=== PATIENT | male | born 1960 | race Caucasian/White ===

== ENCOUNTER 2021-11-19 12:50 | Inpatient (IN) | payer OTHER ==
[2021-11-19 13:37] VITALS: BMI 21.4
[2021-11-19] MEDS ORDERED: NICOTINE 10 MG CARTRIDGE (INHALER) IH PRN (14:55)
[2021-11-19] MEDS ORDERED: P-EPHED 60MG/TRIPROLIDI 2.5MG TABLET PO PRN (14:55)
[2021-11-19] MEDS ORDERED: IBUPROFEN 400 MG TABLET (FP) PO PRN (14:55)
[2021-11-19] MEDS ORDERED: MAGNESIUM HYDROX 2400MG/30ML ORAL SUSPENSION 30 ML CUP PO PRN (14:55)
[2021-11-19] MEDS ORDERED: MAGNESIUM CITRATE 300 ML BOTTLE PO PRN (14:55)
[2021-11-19] MEDS ORDERED: guaiFENesin 200 MG/10 ML 10 ML UNIT-DOSE CUPS PO PRN (14:55)
[2021-11-19] MEDS ORDERED: LOPERAMIDE HCL 2 MG CAPSULE PO PRN (14:55)
[2021-11-19] MEDS ORDERED: MAG HYDROX/AL HYDROX/SIMETH 30 ML UNIT-DOSE CUP PO PRN (14:55)
[2021-11-19] MEDS ORDERED: cloNIDine HCL 0.1 MG TABLET PO ONE (23:29)
[2021-11-19] MEDS ORDERED: cloNIDine HCL 0.1 MG TABLET ONE (23:32)
[2021-11-19] MEDS ORDERED: hydrOXYzine PAMOATE 25 MG CAPSULE (FP) PO PRN (23:38)
[2021-11-19] MEDS ORDERED: NICOTINE POLACRILEX 2 MG GUM BUC PRN (23:39)
[2021-11-19] MEDS: levETIRAcetam 500 MG TABLET (FP) PO SCH (23:43)
[2021-11-20] MEDS ORDERED: methaDONE HCL 10 MG TABLET PO SCH (09:00)
[2021-11-20] MEDS: PRENATAL VITAMINS W/ FOLIC ACID TABLET (FP) PO SCH (10:21)
[2021-11-20] MEDS: NICOTINE 7 MG/24 HOURS TOPICAL PATCH TD SCH (10:22)
[2021-11-20] MEDS ORDERED: TUBERCULIN PPD 5 TU/0.1ML VIAL ID ONE (11:01)
[2021-11-20] MEDS: MELATONIN 5 MG TABLETS PO SCH ×2 (11:24→21:20)
[2021-11-20] MEDS: THIAMINE HCL 100 MG TABLET (FP) PO SCH ×2 (11:25→21:20)
[2021-11-20] MEDS: hydrOXYzine PAMOATE 25 MG CAPSULE (FP) PO SCH (11:26)
[2021-11-20 13:00] LABS: PH,URINE 5.5 (5.0-8.0); URINE APPEARANCE CLEAR; URINE BILIRUBIN NEGATIVE (NEGATIVE); URINE COLOR YELLOW; URINE GLUCOSE (UA) NEGATIVE (NEGATIVE); URINE KETONE NEGATIVE (NEGATIVE); URINE LEUK ESTERASE NEGATIVE (NEGATIVE); URINE NITRITE NEGATIVE (NEGATIVE); URINE PROTEIN NEGATIVE (NEGATIVE); URINE UROBILINOGEN 0.2 mg/dL (0.2-1.0)
[2021-11-20 13:05] LABS: HEMATOCRIT 34.8 % (35.4-49); HEMOGLOBIN 11.6 GM/dL (11.7-16.9); MCH 29.2 pg (25.7-33.7); MCHC 33.3 g/dl (32.0-35.9); MEAN CELL VOLUME 87.4 fl (80-96); MEAN PLT VOLUME 6.7 fl (7.5-11.1); PLATELET COUNT 185 10^3/uL (134-434); RBC 3.98 M/mm3 (4.00-5.60); RDW 14.7 % (11.9-15.9)
[2021-11-20 13:28] LABS: WHITE BLOOD COUNT 1.5 K/mm3 (4.0-10.0)
[2021-11-20 13:34] LABS: CALCIUM 8.9 mg/dL (8.5-10.1)
[2021-11-20 13:35] LABS: ALBUMIN 3.1 g/dl (3.4-5.0); BLOOD UREA NITROGEN 14.2 mg/dL (7-18)
[2021-11-20 13:38] LABS: CREATININE 0.8 mg/dL (0.55-1.3)
[2021-11-20 13:40] LABS: BILIRUBIN,TOTAL 0.3 mg/dL (0.2-1); TOT PROT 6.7 g/dl (6.4-8.2)
[2021-11-20 13:53] LABS: SYPHILIS W/ RPR CONF NON-REACTIVE (NONREACTIVE)
[2021-11-20] MEDS: ELVITEG/COB/EMTRI/TENOF (GENVOYA) TABLET (NF) PO SCH (15:09)
[2021-11-20] MEDS: levETIRAcetam 500 MG TABLET (FP) PO SCH (21:20)
[2021-11-21] MEDS ORDERED: methaDONE HCL 10 MG TABLET ONE (05:35)
[2021-11-21] MEDS ORDERED: methaDONE HCL 40 MG DISPERSABLE TABLET ONE (05:35)
[2021-11-21] MEDS: methaDONE 40 MG, methaDONE 30 MG PO SCH (05:45)
[2021-11-21] MEDS: PRENATAL VITAMINS W/ FOLIC ACID TABLET (FP) PO SCH (09:50)
[2021-11-21] MEDS: ELVITEG/COB/EMTRI/TENOF (GENVOYA) TABLET (NF) PO SCH (09:51)
[2021-11-21] MEDS: NICOTINE 7 MG/24 HOURS TOPICAL PATCH TD SCH (09:51)
[2021-11-21] MEDS: ROSUVASTATIN CA 10 MG TABLET PO SCH (23:19)
[2021-11-21] MEDS: MELATONIN 5 MG TABLETS PO SCH (23:19)
[2021-11-21] MEDS: levETIRAcetam 500 MG TABLET (FP) PO SCH (23:19)
[2021-11-21] MEDS: THIAMINE HCL 100 MG TABLET (FP) PO SCH (23:19)
[2021-11-21] MEDS: CARVEDILOL 6.25 MG TABLET (FP) PO SCH (23:19)
[2021-11-22] MEDS ORDERED: methaDONE HCL 40 MG DISPERSABLE TABLET ONE (03:21)
[2021-11-22] MEDS ORDERED: methaDONE HCL 10 MG TABLET ONE (03:21)
[2021-11-22] MEDS: methaDONE 40 MG, methaDONE 30 MG PO SCH (06:28)
[2021-11-22] MEDS: FUROSEMIDE 40 MG TABLET (FP) PO SCH ×2 (06:28→14:31)
[2021-11-22] MEDS ORDERED: CLARITHROMYCIN 250 MG TABLET PO ONE (09:00)
[2021-11-22] MEDS ORDERED: BUDESONIDE/FORMETEROL FUMARATE 160/4.5 mcg INHALER IH SCH (10:00)
[2021-11-22] MEDS ORDERED: LISINOPRIL 5 MG TABLET PO SCH (10:00)
[2021-11-22] MEDS: NICOTINE 7 MG/24 HOURS TOPICAL PATCH TD SCH (10:08)
[2021-11-22] MEDS: SULFAMETHOXAZOLE/TRIMETHOPRIM 800MG/160MG D.S. TABLET PO SCH (10:09)
[2021-11-22] MEDS: ELVITEG/COB/EMTRI/TENOF (GENVOYA) TABLET (NF) PO SCH (10:10)
[2021-11-22] MEDS: PRENATAL VITAMINS W/ FOLIC ACID TABLET (FP) PO SCH (10:10)
[2021-11-22] MEDS: ASPIRIN 81 MG CHEWABLE TABLETS PO SCH (10:10)
[2021-11-22] MEDS: CARVEDILOL 6.25 MG TABLET (FP) PO SCH ×2 (10:10→21:29)
[2021-11-22] MEDS: APIXABAN 2.5 MG TABLET PO SCH (10:11)
[2021-11-22] MEDS: NICOTINE 10 MG CARTRIDGE (INHALER) IH PRN (14:51)
[2021-11-22] MEDS ORDERED: LISINOPRIL 5 MG TABLET PO ONE (15:25)
[2021-11-22] MEDS: ACETAMINOPHEN 325 MG TABLET (FP) PO PRN (18:17)
[2021-11-22] MEDS: THIAMINE HCL 100 MG TABLET (FP) PO SCH (21:29)
[2021-11-22] MEDS: levETIRAcetam 500 MG TABLET (FP) PO SCH (21:29)
[2021-11-22] MEDS: ROSUVASTATIN CA 10 MG TABLET PO SCH (21:29)
[2021-11-22] MEDS: MELATONIN 5 MG TABLETS PO SCH (21:30)
[2021-11-23] MEDS: ACETAMINOPHEN 325 MG TABLET (FP) PO PRN (01:17)
[2021-11-23] MEDS ORDERED: methaDONE HCL 10 MG TABLET ONE (05:20)
[2021-11-23] MEDS ORDERED: methaDONE HCL 40 MG DISPERSABLE TABLET ONE (05:20)
[2021-11-23] MEDS: FUROSEMIDE 40 MG TABLET (FP) PO SCH ×2 (06:34→14:15)
[2021-11-23] MEDS: methaDONE 40 MG, methaDONE 30 MG PO SCH (06:34)
[2021-11-23] MEDS ORDERED: LISINOPRIL 10 MG TABLET PO SCH (10:00)
[2021-11-23] MEDS: CARVEDILOL 6.25 MG TABLET (FP) PO SCH ×2 (10:41→21:30)
[2021-11-23] MEDS: PRENATAL VITAMINS W/ FOLIC ACID TABLET (FP) PO SCH (10:41)
[2021-11-23] MEDS: ASPIRIN 81 MG CHEWABLE TABLETS PO SCH (10:42)
[2021-11-23] MEDS: NICOTINE 7 MG/24 HOURS TOPICAL PATCH TD SCH (10:44)
[2021-11-23] MEDS: ELVITEG/COB/EMTRI/TENOF (GENVOYA) TABLET (NF) PO SCH (10:45)
[2021-11-23] MEDS: APIXABAN 2.5 MG TABLET PO SCH ×2 (10:45→21:30)
[2021-11-23] MEDS ORDERED: LISINOPRIL 5 MG TABLET PO ONE (14:15)
[2021-11-23] MEDS: ROSUVASTATIN CA 10 MG TABLET PO SCH (21:30)
[2021-11-23] MEDS: THIAMINE HCL 100 MG TABLET (FP) PO SCH (21:30)
[2021-11-23] MEDS: MELATONIN 5 MG TABLETS PO SCH (21:30)
[2021-11-23] MEDS: levETIRAcetam 500 MG TABLET (FP) PO SCH (21:30)
[2021-11-24] MEDS ORDERED: methaDONE HCL 10 MG TABLET ONE (04:04)
[2021-11-24] MEDS ORDERED: methaDONE HCL 40 MG DISPERSABLE TABLET ONE (04:05)
[2021-11-24] MEDS: methaDONE 40 MG, methaDONE 30 MG PO SCH (06:52)
[2021-11-24] MEDS: FUROSEMIDE 40 MG TABLET (FP) PO SCH ×2 (06:52→14:21)
[2021-11-24] MEDS: NICOTINE 10 MG CARTRIDGE (INHALER) IH PRN (06:53)
[2021-11-24] MEDS: ASPIRIN 81 MG CHEWABLE TABLETS PO SCH (10:06)
[2021-11-24] MEDS: LISINOPRIL 5 MG TABLET PO SCH (10:06)
[2021-11-24] MEDS: CARVEDILOL 6.25 MG TABLET (FP) PO SCH ×2 (10:07→21:22)
[2021-11-24] MEDS: APIXABAN 2.5 MG TABLET PO SCH ×2 (10:07→21:22)
[2021-11-24] MEDS: PRENATAL VITAMINS W/ FOLIC ACID TABLET (FP) PO SCH (10:07)
[2021-11-24] MEDS: ELVITEG/COB/EMTRI/TENOF (GENVOYA) TABLET (NF) PO SCH (10:07)
[2021-11-24] MEDS: NICOTINE 7 MG/24 HOURS TOPICAL PATCH TD SCH (10:07)
[2021-11-24] MEDS: SULFAMETHOXAZOLE/TRIMETHOPRIM 800MG/160MG D.S. TABLET PO SCH (10:07)
[2021-11-24] MEDS: PATIENT'S OWN MEDICATION (NON-FORMULARY) (Umeclidinium Bromide [Incruse Ellipta] 62.5 MCG PO SCH (10:08)
[2021-11-24] MEDS: MELATONIN 5 MG TABLETS PO SCH (21:22)
[2021-11-24] MEDS: ROSUVASTATIN CA 10 MG TABLET PO SCH (21:22)
[2021-11-24] MEDS: THIAMINE HCL 100 MG TABLET (FP) PO SCH (21:22)
[2021-11-25] MEDS ORDERED: methaDONE HCL 10 MG TABLET ONE (04:54)
[2021-11-25] MEDS ORDERED: methaDONE HCL 40 MG DISPERSABLE TABLET ONE (04:54)
[2021-11-25] MEDS: FUROSEMIDE 40 MG TABLET (FP) PO SCH ×2 (06:31→14:04)
[2021-11-25] MEDS: methaDONE 40 MG, methaDONE 30 MG PO SCH (06:32)
[2021-11-25] MEDS: ASPIRIN 81 MG CHEWABLE TABLETS PO SCH (10:48)
[2021-11-25] MEDS: LISINOPRIL 5 MG TABLET PO SCH (10:48)
[2021-11-25] MEDS: CARVEDILOL 6.25 MG TABLET (FP) PO SCH ×2 (10:49→21:40)
[2021-11-25] MEDS: PRENATAL VITAMINS W/ FOLIC ACID TABLET (FP) PO SCH (10:49)
[2021-11-25] MEDS: NICOTINE 7 MG/24 HOURS TOPICAL PATCH TD SCH (10:49)
[2021-11-25] MEDS: PATIENT'S OWN MEDICATION (NON-FORMULARY) (Umeclidinium Bromide [Incruse Ellipta] 62.5 MCG PO SCH (10:50)
[2021-11-25] MEDS: APIXABAN 2.5 MG TABLET PO SCH ×2 (10:50→21:40)
[2021-11-25] MEDS: ELVITEG/COB/EMTRI/TENOF (GENVOYA) TABLET (NF) PO SCH (10:50)
[2021-11-25] MEDS: THIAMINE HCL 100 MG TABLET (FP) PO SCH (21:40)
[2021-11-25] MEDS: ROSUVASTATIN CA 10 MG TABLET PO SCH (21:40)
[2021-11-25] MEDS: MELATONIN 5 MG TABLETS PO SCH (21:40)
[2021-11-26] MEDS ORDERED: methaDONE HCL 40 MG DISPERSABLE TABLET ONE (05:44)
[2021-11-26] MEDS ORDERED: methaDONE HCL 10 MG TABLET ONE (05:44)
[2021-11-26] MEDS: methaDONE 40 MG, methaDONE 30 MG PO SCH (06:26)
[2021-11-26] MEDS: FUROSEMIDE 40 MG TABLET (FP) PO SCH ×2 (06:26→14:38)
[2021-11-26] MEDS: CARVEDILOL 6.25 MG TABLET (FP) PO SCH ×2 (10:23→21:40)
[2021-11-26] MEDS: ASPIRIN 81 MG CHEWABLE TABLETS PO SCH (10:23)
[2021-11-26] MEDS: LISINOPRIL 5 MG TABLET PO SCH (10:23)
[2021-11-26] MEDS: NICOTINE 7 MG/24 HOURS TOPICAL PATCH TD SCH (10:23)
[2021-11-26] MEDS: PRENATAL VITAMINS W/ FOLIC ACID TABLET (FP) PO SCH (10:23)
[2021-11-26] MEDS: SULFAMETHOXAZOLE/TRIMETHOPRIM 800MG/160MG D.S. TABLET PO SCH (10:23)
[2021-11-26] MEDS: NICOTINE 10 MG CARTRIDGE (INHALER) IH PRN (10:24)
[2021-11-26] MEDS: APIXABAN 2.5 MG TABLET PO SCH ×2 (10:27→21:40)
[2021-11-26] MEDS: ELVITEG/COB/EMTRI/TENOF (GENVOYA) TABLET (NF) PO SCH (10:27)
[2021-11-26] MEDS: PATIENT'S OWN MEDICATION (NON-FORMULARY) (Umeclidinium Bromide [Incruse Ellipta] 62.5 MCG PO SCH (10:28)
[2021-11-26] MEDS: ROSUVASTATIN CA 10 MG TABLET PO SCH (21:40)
[2021-11-26] MEDS: THIAMINE HCL 100 MG TABLET (FP) PO SCH (21:40)
[2021-11-26] MEDS: MELATONIN 5 MG TABLETS PO SCH (21:40)
[2021-11-27] MEDS ORDERED: methaDONE HCL 40 MG DISPERSABLE TABLET ONE (03:26)
[2021-11-27] MEDS ORDERED: methaDONE HCL 10 MG TABLET ONE (03:26)
[2021-11-27] MEDS: methaDONE 40 MG, methaDONE 30 MG PO SCH (06:28)
[2021-11-27] MEDS: FUROSEMIDE 40 MG TABLET (FP) PO SCH ×2 (06:29→14:33)
[2021-11-27 10:27] LABS: HEMOGLOBIN 13.3 GM/dL (11.7-16.9); MCH 29.7 pg (25.7-33.7); MCHC 33.3 g/dl (32.0-35.9); MEAN CELL VOLUME 89.2 fl (80-96); MEAN PLT VOLUME 7.3 fl (7.5-11.1); PLATELET COUNT 224 10^3/uL (134-434); RBC 4.49 M/mm3 (4.00-5.60); RDW 14.4 % (11.9-15.9); WHITE BLOOD COUNT 3.8 K/mm3 (4.0-10.0)
[2021-11-27] MEDS: LISINOPRIL 5 MG TABLET PO SCH (10:51)
[2021-11-27] MEDS: ASPIRIN 81 MG CHEWABLE TABLETS PO SCH (10:51)
[2021-11-27] MEDS: PRENATAL VITAMINS W/ FOLIC ACID TABLET (FP) PO SCH (10:51)
[2021-11-27] MEDS: CARVEDILOL 6.25 MG TABLET (FP) PO SCH ×2 (10:51→21:42)
[2021-11-27] MEDS: ELVITEG/COB/EMTRI/TENOF (GENVOYA) TABLET (NF) PO SCH (10:53)
[2021-11-27] MEDS: APIXABAN 2.5 MG TABLET PO SCH ×2 (10:53→21:43)
[2021-11-27] MEDS: NICOTINE 7 MG/24 HOURS TOPICAL PATCH TD SCH (10:53)
[2021-11-27] MEDS: PATIENT'S OWN MEDICATION (NON-FORMULARY) (Umeclidinium Bromide [Incruse Ellipta] 62.5 MCG PO SCH (10:53)
[2021-11-27] MEDS: MELATONIN 5 MG TABLETS PO SCH (21:42)
[2021-11-27] MEDS: THIAMINE HCL 100 MG TABLET (FP) PO SCH (21:42)
[2021-11-27] MEDS: ROSUVASTATIN CA 10 MG TABLET PO SCH (21:42)
[2021-11-28] MEDS ORDERED: methaDONE HCL 10 MG TABLET ONE (03:09)
[2021-11-28] MEDS ORDERED: methaDONE HCL 40 MG DISPERSABLE TABLET ONE (03:10)
[2021-11-28] MEDS ORDERED: methaDONE HCL 10 MG TABLET PO SCH (06:00)
[2021-11-28] MEDS: methaDONE 40 MG, methaDONE 30 MG PO SCH (06:30)
[2021-11-28] MEDS: FUROSEMIDE 40 MG TABLET (FP) PO SCH ×2 (06:30→14:05)
[2021-11-28] MEDS: PRENATAL VITAMINS W/ FOLIC ACID TABLET (FP) PO SCH (09:41)
[2021-11-28] MEDS: LISINOPRIL 5 MG TABLET PO SCH (09:41)
[2021-11-28] MEDS: CARVEDILOL 6.25 MG TABLET (FP) PO SCH ×2 (09:41→21:46)
[2021-11-28] MEDS: ASPIRIN 81 MG CHEWABLE TABLETS PO SCH (09:42)
[2021-11-28] MEDS: APIXABAN 2.5 MG TABLET PO SCH ×2 (09:42→21:47)
[2021-11-28] MEDS: ELVITEG/COB/EMTRI/TENOF (GENVOYA) TABLET (NF) PO SCH (09:42)
[2021-11-28] MEDS: NICOTINE 7 MG/24 HOURS TOPICAL PATCH TD SCH (09:43)
[2021-11-28] MEDS: NICOTINE 10 MG CARTRIDGE (INHALER) IH PRN (09:44)
[2021-11-28] MEDS: PATIENT'S OWN MEDICATION (NON-FORMULARY) (Umeclidinium Bromide [Incruse Ellipta] 62.5 MCG PO SCH (09:45)
[2021-11-28] MEDS: ROSUVASTATIN CA 10 MG TABLET PO SCH (21:45)
[2021-11-28] MEDS: THIAMINE HCL 100 MG TABLET (FP) PO SCH (21:46)
[2021-11-28] MEDS: MELATONIN 5 MG TABLETS PO SCH (21:46)
[2021-11-29] MEDS ORDERED: methaDONE HCL 40 MG DISPERSABLE TABLET ONE (03:07)
[2021-11-29] MEDS ORDERED: methaDONE HCL 10 MG TABLET ONE (03:07)
[2021-11-29] MEDS: FUROSEMIDE 40 MG TABLET (FP) PO SCH ×2 (06:21→15:08)
[2021-11-29] MEDS: methaDONE 40 MG, methaDONE 30 MG PO SCH (06:22)
[2021-11-29] MEDS: SULFAMETHOXAZOLE/TRIMETHOPRIM 800MG/160MG D.S. TABLET PO SCH (10:46)
[2021-11-29] MEDS: ASPIRIN 81 MG CHEWABLE TABLETS PO SCH (10:46)
[2021-11-29] MEDS: CARVEDILOL 6.25 MG TABLET (FP) PO SCH ×2 (10:46→21:28)
[2021-11-29] MEDS: PATIENT'S OWN MEDICATION (NON-FORMULARY) (Umeclidinium Bromide [Incruse Ellipta] 62.5 MCG PO SCH (10:46)
[2021-11-29] MEDS: PRENATAL VITAMINS W/ FOLIC ACID TABLET (FP) PO SCH (10:46)
[2021-11-29] MEDS: LISINOPRIL 5 MG TABLET PO SCH (10:46)
[2021-11-29] MEDS: APIXABAN 2.5 MG TABLET PO SCH ×2 (10:47→21:28)
[2021-11-29] MEDS: NICOTINE 7 MG/24 HOURS TOPICAL PATCH TD SCH (10:47)
[2021-11-29] MEDS: ELVITEG/COB/EMTRI/TENOF (GENVOYA) TABLET (NF) PO SCH (10:47)
[2021-11-29] MEDS: ROSUVASTATIN CA 10 MG TABLET PO SCH (21:28)
[2021-11-29] MEDS: THIAMINE HCL 100 MG TABLET (FP) PO SCH (21:28)
[2021-11-29] MEDS: MELATONIN 5 MG TABLETS PO SCH (21:28)
[2021-11-30] MEDS ORDERED: methaDONE HCL 40 MG DISPERSABLE TABLET ONE (03:00)
[2021-11-30] MEDS ORDERED: methaDONE HCL 10 MG TABLET ONE (03:00)
[2021-11-30] MEDS: methaDONE 40 MG, methaDONE 30 MG PO SCH (06:27)
[2021-11-30] MEDS: FUROSEMIDE 40 MG TABLET (FP) PO SCH ×2 (06:28→15:40)
[2021-11-30] MEDS: ASPIRIN 81 MG CHEWABLE TABLETS PO SCH (10:52)
[2021-11-30] MEDS: LISINOPRIL 5 MG TABLET PO SCH (10:52)
[2021-11-30] MEDS: APIXABAN 2.5 MG TABLET PO SCH ×2 (10:53→21:06)
[2021-11-30] MEDS: ELVITEG/COB/EMTRI/TENOF (GENVOYA) TABLET (NF) PO SCH (10:53)
[2021-11-30] MEDS: PRENATAL VITAMINS W/ FOLIC ACID TABLET (FP) PO SCH (10:53)
[2021-11-30] MEDS: NICOTINE 7 MG/24 HOURS TOPICAL PATCH TD SCH (10:53)
[2021-11-30] MEDS: PATIENT'S OWN MEDICATION (NON-FORMULARY) (Umeclidinium Bromide [Incruse Ellipta] 62.5 MCG PO SCH (10:54)
[2021-11-30] MEDS: CARVEDILOL 6.25 MG TABLET (FP) PO SCH ×2 (10:54→21:06)
[2021-11-30] MEDS: THIAMINE HCL 100 MG TABLET (FP) PO SCH (21:06)
[2021-11-30] MEDS: MELATONIN 5 MG TABLETS PO SCH (21:06)
[2021-11-30] MEDS: ROSUVASTATIN CA 10 MG TABLET PO SCH (21:06)
[2021-12-01] MEDS ORDERED: methaDONE HCL 40 MG DISPERSABLE TABLET ONE (02:28)
[2021-12-01] MEDS ORDERED: methaDONE HCL 10 MG TABLET ONE (02:28)
[2021-12-01] MEDS: methaDONE 40 MG, methaDONE 30 MG PO SCH (06:37)
[2021-12-01] MEDS: FUROSEMIDE 40 MG TABLET (FP) PO SCH ×2 (06:37→15:02)
[2021-12-01] MEDS: NICOTINE 7 MG/24 HOURS TOPICAL PATCH TD SCH (10:34)
[2021-12-01] MEDS: CARVEDILOL 6.25 MG TABLET (FP) PO SCH ×2 (10:34→21:11)
[2021-12-01] MEDS: ASPIRIN 81 MG CHEWABLE TABLETS PO SCH (10:34)
[2021-12-01] MEDS: LISINOPRIL 5 MG TABLET PO SCH (10:34)
[2021-12-01] MEDS: SULFAMETHOXAZOLE/TRIMETHOPRIM 800MG/160MG D.S. TABLET PO SCH (10:34)
[2021-12-01] MEDS: PRENATAL VITAMINS W/ FOLIC ACID TABLET (FP) PO SCH (10:34)
[2021-12-01] MEDS: APIXABAN 2.5 MG TABLET PO SCH ×2 (10:35→21:11)
[2021-12-01] MEDS: ELVITEG/COB/EMTRI/TENOF (GENVOYA) TABLET (NF) PO SCH (10:35)
[2021-12-01] MEDS: PATIENT'S OWN MEDICATION (NON-FORMULARY) (Umeclidinium Bromide [Incruse Ellipta] 62.5 MCG PO SCH (10:36)
[2021-12-01] MEDS: MELATONIN 5 MG TABLETS PO SCH (21:11)
[2021-12-01] MEDS: THIAMINE HCL 100 MG TABLET (FP) PO SCH (21:11)
[2021-12-01] MEDS: ROSUVASTATIN CA 10 MG TABLET PO SCH (21:11)
[2021-12-02] MEDS ORDERED: methaDONE HCL 40 MG DISPERSABLE TABLET ONE (06:41)
[2021-12-02] MEDS ORDERED: methaDONE HCL 10 MG TABLET ONE (06:41)
[2021-12-02] MEDS: methaDONE 40 MG, methaDONE 30 MG PO SCH (06:52)
[2021-12-02] MEDS: NICOTINE 10 MG CARTRIDGE (INHALER) IH PRN (06:53)
[2021-12-02] MEDS: FUROSEMIDE 40 MG TABLET (FP) PO SCH ×2 (06:53→13:19)
[2021-12-02] MEDS: ASPIRIN 81 MG CHEWABLE TABLETS PO SCH (10:02)
[2021-12-02] MEDS: CARVEDILOL 6.25 MG TABLET (FP) PO SCH ×2 (10:02→21:13)
[2021-12-02] MEDS: LISINOPRIL 5 MG TABLET PO SCH (10:02)
[2021-12-02] MEDS: PRENATAL VITAMINS W/ FOLIC ACID TABLET (FP) PO SCH (10:02)
[2021-12-02] MEDS: ELVITEG/COB/EMTRI/TENOF (GENVOYA) TABLET (NF) PO SCH (10:02)
[2021-12-02] MEDS: APIXABAN 2.5 MG TABLET PO SCH ×2 (10:02→21:13)
[2021-12-02] MEDS: PATIENT'S OWN MEDICATION (NON-FORMULARY) (Umeclidinium Bromide [Incruse Ellipta] 62.5 MCG PO SCH (10:03)
[2021-12-02] MEDS: NICOTINE 7 MG/24 HOURS TOPICAL PATCH TD SCH (10:04)
[2021-12-02] MEDS: MELATONIN 5 MG TABLETS PO SCH (21:13)
[2021-12-02] MEDS: THIAMINE HCL 100 MG TABLET (FP) PO SCH (21:13)
[2021-12-02] MEDS: ROSUVASTATIN CA 10 MG TABLET PO SCH (21:13)
[2021-12-03] MEDS: NICOTINE 10 MG CARTRIDGE (INHALER) IH PRN (06:31)
[2021-12-03] MEDS ORDERED: methaDONE HCL 10 MG TABLET ONE (06:31)
[2021-12-03] MEDS: methaDONE 40 MG, methaDONE 30 MG PO SCH (06:32)
[2021-12-03] MEDS: FUROSEMIDE 40 MG TABLET (FP) PO SCH ×2 (06:32→13:53)
[2021-12-03] MEDS ORDERED: methaDONE HCL 40 MG DISPERSABLE TABLET ONE (06:32)
[2021-12-03] MEDS: LISINOPRIL 5 MG TABLET PO SCH (09:44)
[2021-12-03] MEDS: SULFAMETHOXAZOLE/TRIMETHOPRIM 800MG/160MG D.S. TABLET PO SCH (09:44)
[2021-12-03] MEDS: NICOTINE 7 MG/24 HOURS TOPICAL PATCH TD SCH (09:44)
[2021-12-03] MEDS: ASPIRIN 81 MG CHEWABLE TABLETS PO SCH (09:44)
[2021-12-03] MEDS: PRENATAL VITAMINS W/ FOLIC ACID TABLET (FP) PO SCH (09:44)
[2021-12-03] MEDS: APIXABAN 2.5 MG TABLET PO SCH ×2 (09:45→21:38)
[2021-12-03] MEDS: ELVITEG/COB/EMTRI/TENOF (GENVOYA) TABLET (NF) PO SCH (09:45)
[2021-12-03] MEDS: CARVEDILOL 6.25 MG TABLET (FP) PO SCH ×2 (09:45→21:38)
[2021-12-03] MEDS: TIOTROPIUM BROMIDE 2.5 MCG (SPIRIVA) RESPIMAT INHALER IH SCH (10:28)
[2021-12-03] MEDS: THIAMINE HCL 100 MG TABLET (FP) PO SCH (21:37)
[2021-12-03] MEDS: MELATONIN 5 MG TABLETS PO SCH (21:37)
[2021-12-03] MEDS: ROSUVASTATIN CA 10 MG TABLET PO SCH (21:38)
[2021-12-04] MEDS ORDERED: methaDONE HCL 40 MG DISPERSABLE TABLET ONE (03:12)
[2021-12-04] MEDS ORDERED: methaDONE HCL 10 MG TABLET ONE (03:12)
[2021-12-04] MEDS: methaDONE 40 MG, methaDONE 30 MG PO SCH (05:47)
[2021-12-04] MEDS: FUROSEMIDE 40 MG TABLET (FP) PO SCH ×2 (05:48→14:01)
[2021-12-04] MEDS: NICOTINE 7 MG/24 HOURS TOPICAL PATCH TD SCH (10:16)
[2021-12-04] MEDS: PRENATAL VITAMINS W/ FOLIC ACID TABLET (FP) PO SCH (10:17)
[2021-12-04] MEDS: ASPIRIN 81 MG CHEWABLE TABLETS PO SCH (10:17)
[2021-12-04] MEDS: LISINOPRIL 5 MG TABLET PO SCH (10:17)
[2021-12-04] MEDS: TIOTROPIUM BROMIDE 2.5 MCG (SPIRIVA) RESPIMAT INHALER IH SCH (10:18)
[2021-12-04] MEDS: ELVITEG/COB/EMTRI/TENOF (GENVOYA) TABLET (NF) PO SCH (10:18)
[2021-12-04] MEDS: CARVEDILOL 6.25 MG TABLET (FP) PO SCH ×2 (10:18→21:23)
[2021-12-04] MEDS: APIXABAN 2.5 MG TABLET PO SCH ×2 (10:18→21:23)
[2021-12-04] MEDS: ROSUVASTATIN CA 10 MG TABLET PO SCH (21:23)
[2021-12-04] MEDS: THIAMINE HCL 100 MG TABLET (FP) PO SCH (21:23)
[2021-12-04] MEDS: MELATONIN 5 MG TABLETS PO SCH (21:23)
[2021-12-04] MEDS: ACETAMINOPHEN 325 MG TABLET (FP) PO PRN (21:24)
[2021-12-05] MEDS ORDERED: methaDONE HCL 10 MG TABLET ONE (04:03)
[2021-12-05] MEDS ORDERED: methaDONE HCL 40 MG DISPERSABLE TABLET ONE (04:04)
[2021-12-05] MEDS: methaDONE 40 MG, methaDONE 30 MG PO SCH (06:17)
[2021-12-05] MEDS: FUROSEMIDE 40 MG TABLET (FP) PO SCH ×2 (06:17→14:17)
[2021-12-05] MEDS: NICOTINE 10 MG CARTRIDGE (INHALER) IH PRN (06:44)
[2021-12-05] MEDS: LISINOPRIL 5 MG TABLET PO SCH (10:13)
[2021-12-05] MEDS: PRENATAL VITAMINS W/ FOLIC ACID TABLET (FP) PO SCH (10:14)
[2021-12-05] MEDS: CARVEDILOL 6.25 MG TABLET (FP) PO SCH ×2 (10:14→21:07)
[2021-12-05] MEDS: ASPIRIN 81 MG CHEWABLE TABLETS PO SCH (10:14)
[2021-12-05] MEDS: NICOTINE 7 MG/24 HOURS TOPICAL PATCH TD SCH (10:14)
[2021-12-05] MEDS: APIXABAN 2.5 MG TABLET PO SCH ×2 (10:15→21:08)
[2021-12-05] MEDS: ELVITEG/COB/EMTRI/TENOF (GENVOYA) TABLET (NF) PO SCH (10:15)
[2021-12-05] MEDS: TIOTROPIUM BROMIDE 2.5 MCG (SPIRIVA) RESPIMAT INHALER IH SCH (10:15)
[2021-12-05] MEDS: MELATONIN 5 MG TABLETS PO SCH (21:07)
[2021-12-05] MEDS: THIAMINE HCL 100 MG TABLET (FP) PO SCH (21:07)
[2021-12-05] MEDS: ROSUVASTATIN CA 10 MG TABLET PO SCH (21:07)
[2021-12-06] MEDS ORDERED: methaDONE HCL 10 MG TABLET ONE (03:56)
[2021-12-06] MEDS ORDERED: methaDONE HCL 40 MG DISPERSABLE TABLET ONE (03:56)
[2021-12-06] MEDS: FUROSEMIDE 40 MG TABLET (FP) PO SCH ×2 (06:31→14:33)
[2021-12-06] MEDS: methaDONE 40 MG, methaDONE 30 MG PO SCH (06:31)
[2021-12-06] MEDS: NICOTINE 10 MG CARTRIDGE (INHALER) IH PRN ×2 (06:33→18:33)
[2021-12-06] MEDS: CARVEDILOL 6.25 MG TABLET (FP) PO SCH ×2 (10:16→21:20)
[2021-12-06] MEDS: ELVITEG/COB/EMTRI/TENOF (GENVOYA) TABLET (NF) PO SCH (10:17)
[2021-12-06] MEDS: SULFAMETHOXAZOLE/TRIMETHOPRIM 800MG/160MG D.S. TABLET PO SCH (10:17)
[2021-12-06] MEDS: TIOTROPIUM BROMIDE 2.5 MCG (SPIRIVA) RESPIMAT INHALER IH SCH (10:17)
[2021-12-06] MEDS: NICOTINE 7 MG/24 HOURS TOPICAL PATCH TD SCH (10:17)
[2021-12-06] MEDS: APIXABAN 2.5 MG TABLET PO SCH ×2 (10:17→21:20)
[2021-12-06] MEDS: PRENATAL VITAMINS W/ FOLIC ACID TABLET (FP) PO SCH (10:17)
[2021-12-06] MEDS: LISINOPRIL 5 MG TABLET PO SCH (10:17)
[2021-12-06] MEDS: ASPIRIN 81 MG CHEWABLE TABLETS PO SCH (10:17)
[2021-12-06] MEDS: ACETAMINOPHEN 325 MG TABLET (FP) PO PRN (14:34)
[2021-12-06] MEDS: MELATONIN 5 MG TABLETS PO SCH (21:20)
[2021-12-06] MEDS: ROSUVASTATIN CA 10 MG TABLET PO SCH (21:20)
[2021-12-06] MEDS: THIAMINE HCL 100 MG TABLET (FP) PO SCH (21:20)
[2021-12-07] MEDS ORDERED: methaDONE HCL 10 MG TABLET ONE (05:58)
[2021-12-07] MEDS: FUROSEMIDE 40 MG TABLET (FP) PO SCH (05:59)
[2021-12-07] MEDS ORDERED: methaDONE HCL 40 MG DISPERSABLE TABLET ONE (05:59)
[2021-12-07] MEDS: methaDONE 40 MG, methaDONE 30 MG PO SCH (06:00)
[2021-12-07] MEDS: NICOTINE 10 MG CARTRIDGE (INHALER) IH PRN (06:51)
[2021-12-07 07:14] VITALS: BP 165/85; PULSE 60; TEMP 97.7
[2021-12-07] MEDS: LISINOPRIL 5 MG TABLET PO SCH (10:07)
[2021-12-07] MEDS: ASPIRIN 81 MG CHEWABLE TABLETS PO SCH (10:07)
[2021-12-07] MEDS: PRENATAL VITAMINS W/ FOLIC ACID TABLET (FP) PO SCH (10:07)
[2021-12-07] MEDS: CARVEDILOL 6.25 MG TABLET (FP) PO SCH (10:07)
[2021-12-07] MEDS: APIXABAN 2.5 MG TABLET PO SCH (10:08)
[2021-12-07] MEDS: ELVITEG/COB/EMTRI/TENOF (GENVOYA) TABLET (NF) PO SCH (10:08)
[2021-12-07] MEDS: NICOTINE 7 MG/24 HOURS TOPICAL PATCH TD SCH (10:09)
[2021-12-07] MEDS: TIOTROPIUM BROMIDE 2.5 MCG (SPIRIVA) RESPIMAT INHALER IH SCH (10:09)
== END 2021-12-07 10:25 | disposition home or self-care (01) | DRG 772 ==
LOC: YASAS 12:50 → Y3W 23:31
PROVIDERS: ADMIT Allergy & Immunology; ATTEND Psychiatry & Neurology Pain Medicine
PROC: HZ42ZZZ Group Counseling for Substance Abuse Treatment, Cognitive-Behavioral (ICD-10-PCS; principal; 2021-11-19)
DX: F10.20 Alcohol dependence, uncomplicated (principal); F11.20 Opioid dependence, uncomplicated; F14.20 Cocaine dependence, uncomplicated; F17.210 Nicotine dependence, cigarettes, uncomplicated; I10 Essential (primary) hypertension; Z21 Asymptomatic human immunodeficiency virus [HIV] infection status; R00.1 Bradycardia, unspecified; I45.81 Long QT syndrome; I45.10 Unspecified right bundle-branch block; Z28.310 Unvaccinated for COVID-19
CPT/HCPCS: 36415; 80053; 81003; 84132; 85027; 86780; 86803; 87522; 93005; 93010; C9803-CS; J0735; U0003; U0005

== ENCOUNTER 2021-12-20 12:20 | Inpatient (IN) | payer OTHER ==
[2021-12-20 14:37] VITALS: BMI 21.2
[2021-12-20] MEDS ORDERED: IBUPROFEN 400 MG TABLET (FP) PO PRN (14:55)
[2021-12-20] MEDS ORDERED: guaiFENesin 200 MG/10 ML 10 ML UNIT-DOSE CUPS PO PRN (14:55)
[2021-12-20] MEDS ORDERED: MAG HYDROX/AL HYDROX/SIMETH 30 ML UNIT-DOSE CUP PO PRN (14:55)
[2021-12-20] MEDS ORDERED: MAGNESIUM CITRATE 300 ML BOTTLE PO PRN (14:55)
[2021-12-20] MEDS ORDERED: P-EPHED 60MG/TRIPROLIDI 2.5MG TABLET PO PRN (14:55)
[2021-12-20] MEDS ORDERED: MAGNESIUM HYDROX 2400MG/30ML ORAL SUSPENSION 30 ML CUP PO PRN (14:55)
[2021-12-20] MEDS ORDERED: LOPERAMIDE HCL 2 MG CAPSULE PO PRN (14:55)
[2021-12-20] MEDS: hydrOXYzine PAMOATE 25 MG CAPSULE (FP) PO SCH ×2 (21:41→22:43)
[2021-12-20] MEDS: THIAMINE HCL 100 MG TABLET (FP) PO SCH (22:41)
[2021-12-20] MEDS: MELATONIN 5 MG TABLETS PO SCH (22:41)
[2021-12-21] MEDS: hydrOXYzine PAMOATE 25 MG CAPSULE (FP) PO SCH ×2 (06:10→10:31)
[2021-12-21] MEDS ORDERED: methaDONE HCL 40 MG DISPERSABLE TABLET PO SCH (07:45)
[2021-12-21] MEDS ORDERED: methaDONE HCL 10 MG TABLET ONE (08:19)
[2021-12-21] MEDS ORDERED: methaDONE HCL 40 MG DISPERSABLE TABLET ONE (08:19)
[2021-12-21] MEDS: methaDONE 40 MG, methaDONE 30 MG PO SCH (08:20)
[2021-12-21] MEDS ORDERED: NICOTINE 21 MG/24 HOURS TOPICAL PATCH TD SCH (10:00)
[2021-12-21] MEDS ORDERED: BUDESONIDE/FORMETEROL FUMARATE 160/4.5 mcg INHALER IH SCH (10:15)
[2021-12-21] MEDS: PRENATAL VITAMINS W/ FOLIC ACID TABLET (FP) PO SCH (10:31)
[2021-12-21 11:40] LABS: HEMATOCRIT 35.6 % (35.4-49); HEMOGLOBIN 11.9 GM/dL (11.7-16.9); MCH 30.3 pg (25.7-33.7); MCHC 33.4 g/dl (32.0-35.9); MEAN CELL VOLUME 90.5 fl (80-96); MEAN PLT VOLUME 6.8 fl (7.5-11.1); PLATELET COUNT 155 10^3/uL (134-434); RBC 3.93 M/mm3 (4.00-5.60); RDW 14.1 % (11.9-15.9)
[2021-12-21 11:47] LABS: WHITE BLOOD COUNT 1.9 K/mm3 (4.0-10.0)
[2021-12-21 11:57] LABS: SYPHILIS W/ RPR CONF NON-REACTIVE (NONREACTIVE)
[2021-12-21 12:06] LABS: CALCIUM 8.9 mg/dL (8.5-10.1)
[2021-12-21 12:07] LABS: ALBUMIN 3.3 g/dl (3.4-5.0)
[2021-12-21 12:11] LABS: CREATININE 0.9 mg/dL (0.55-1.3)
[2021-12-21 12:12] LABS: BILIRUBIN,TOTAL 0.6 mg/dL (0.2-1); TOT PROT 6.9 g/dl (6.4-8.2)
[2021-12-21] MEDS: ASPIRIN 81 MG CHEWABLE TABLETS PO SCH (12:13)
[2021-12-21] MEDS: CARVEDILOL 6.25 MG TABLET (FP) PO SCH ×2 (12:14→21:02)
[2021-12-21] MEDS: ELVITEG/COB/EMTRI/TENOF (GENVOYA) TABLET (NF) PO SCH (12:15)
[2021-12-21] MEDS: APIXABAN 2.5 MG TABLET PO SCH (12:15)
[2021-12-21] MEDS: LISINOPRIL 5 MG TABLET PO SCH (12:16)
[2021-12-21] MEDS: TIOTROPIUM BROMIDE 2.5 MCG (SPIRIVA) RESPIMAT INHALER IH SCH (12:17)
[2021-12-21] MEDS ORDERED: hydrOXYzine PAMOATE 25 MG CAPSULE (FP) PO PRN (13:03)
[2021-12-21 15:30] LABS: HIV INTERPRETATION PRESUMPTIVE POSITIVE (NEGATIVE)
[2021-12-21] MEDS: MELATONIN 5 MG TABLETS PO SCH (21:02)
[2021-12-21] MEDS: ROSUVASTATIN CA 10 MG TABLET PO SCH (21:02)
[2021-12-21] MEDS: THIAMINE HCL 100 MG TABLET (FP) PO SCH (21:03)
[2021-12-22] MEDS ORDERED: methaDONE HCL 10 MG TABLET ONE (03:45)
[2021-12-22] MEDS ORDERED: methaDONE HCL 40 MG DISPERSABLE TABLET ONE (03:45)
[2021-12-22] MEDS: methaDONE 40 MG, methaDONE 30 MG PO SCH (06:44)
[2021-12-22] MEDS: ASPIRIN 81 MG CHEWABLE TABLETS PO SCH (10:15)
[2021-12-22] MEDS: ELVITEG/COB/EMTRI/TENOF (GENVOYA) TABLET (NF) PO SCH (10:15)
[2021-12-22] MEDS: CARVEDILOL 6.25 MG TABLET (FP) PO SCH ×2 (10:15→21:18)
[2021-12-22] MEDS: LISINOPRIL 5 MG TABLET PO SCH (10:19)
[2021-12-22] MEDS: TIOTROPIUM BROMIDE 2.5 MCG (SPIRIVA) RESPIMAT INHALER IH SCH (10:19)
[2021-12-22] MEDS: NICOTINE 7 MG/24 HOURS TOPICAL PATCH TD SCH (10:20)
[2021-12-22] MEDS: PRENATAL VITAMINS W/ FOLIC ACID TABLET (FP) PO SCH (10:20)
[2021-12-22] MEDS: BUDESONIDE/FORMETEROL FUMARATE 160/4.5 mcg INHALER IH SCH (10:22)
[2021-12-22] MEDS: APIXABAN 2.5 MG TABLET PO SCH (14:22)
[2021-12-22] MEDS: MELATONIN 5 MG TABLETS PO SCH (21:18)
[2021-12-22] MEDS: ROSUVASTATIN CA 10 MG TABLET PO SCH (21:18)
[2021-12-22] MEDS: THIAMINE HCL 100 MG TABLET (FP) PO SCH (21:18)
[2021-12-23] MEDS ORDERED: methaDONE HCL 40 MG DISPERSABLE TABLET ONE (03:12)
[2021-12-23] MEDS ORDERED: methaDONE HCL 10 MG TABLET ONE (03:12)
[2021-12-23] MEDS: methaDONE 40 MG, methaDONE 30 MG PO SCH (06:35)
[2021-12-23] MEDS: ELVITEG/COB/EMTRI/TENOF (GENVOYA) TABLET (NF) PO SCH (07:16)
[2021-12-23] MEDS: PRENATAL VITAMINS W/ FOLIC ACID TABLET (FP) PO SCH (10:00)
[2021-12-23] MEDS: BUDESONIDE/FORMETEROL FUMARATE 160/4.5 mcg INHALER IH SCH (10:00)
[2021-12-23] MEDS: LISINOPRIL 5 MG TABLET PO SCH (10:01)
[2021-12-23] MEDS: TIOTROPIUM BROMIDE 2.5 MCG (SPIRIVA) RESPIMAT INHALER IH SCH (10:01)
[2021-12-23] MEDS: ASPIRIN 81 MG CHEWABLE TABLETS PO SCH (10:01)
[2021-12-23] MEDS: NICOTINE 7 MG/24 HOURS TOPICAL PATCH TD SCH (10:03)
[2021-12-23] MEDS: APIXABAN 2.5 MG TABLET PO SCH (11:35)
[2021-12-23] MEDS: CARVEDILOL 6.25 MG TABLET (FP) PO SCH ×2 (11:35→21:09)
[2021-12-23] MEDS: ACETAMINOPHEN 325 MG TABLET (FP) PO PRN (11:37)
[2021-12-23 13:45] LABS: BASO % 0.7 % (0-2.0); EOS % 2.3 % (0-4.5); HEMATOCRIT 35.6 % (35.4-49); HEMOGLOBIN 11.7 GM/dL (11.7-16.9); LYMPH % 25.3 % (8-40); MCHC 32.9 g/dl (32.0-35.9); MEAN CELL VOLUME 90.9 fl (80-96); MEAN PLT VOLUME 6.9 fl (7.5-11.1); MONO % 8.3 % (3.8-10.2); NEUT % 63.4 % (42.8-82.8); PLATELET COUNT 168 10^3/uL (134-434); RBC 3.91 M/mm3 (4.00-5.60); RDW 14.1 % (11.9-15.9)
[2021-12-23] MEDS: MELATONIN 5 MG TABLETS PO SCH (21:09)
[2021-12-23] MEDS: ROSUVASTATIN CA 10 MG TABLET PO SCH (21:09)
[2021-12-23] MEDS: THIAMINE HCL 100 MG TABLET (FP) PO SCH (21:09)
[2021-12-24] MEDS ORDERED: methaDONE HCL 40 MG DISPERSABLE TABLET ONE (03:10)
[2021-12-24] MEDS ORDERED: methaDONE HCL 10 MG TABLET ONE (03:10)
[2021-12-24] MEDS: methaDONE 40 MG, methaDONE 30 MG PO SCH (06:24)
[2021-12-24] MEDS: ELVITEG/COB/EMTRI/TENOF (GENVOYA) TABLET (NF) PO SCH (07:03)
[2021-12-24] MEDS: ASPIRIN 81 MG CHEWABLE TABLETS PO SCH (10:21)
[2021-12-24] MEDS: PRENATAL VITAMINS W/ FOLIC ACID TABLET (FP) PO SCH (10:21)
[2021-12-24] MEDS: CARVEDILOL 6.25 MG TABLET (FP) PO SCH ×2 (10:21→21:19)
[2021-12-24] MEDS: TIOTROPIUM BROMIDE 2.5 MCG (SPIRIVA) RESPIMAT INHALER IH SCH (10:22)
[2021-12-24] MEDS: NICOTINE 7 MG/24 HOURS TOPICAL PATCH TD SCH (10:22)
[2021-12-24] MEDS: APIXABAN 2.5 MG TABLET PO SCH (10:22)
[2021-12-24] MEDS: BUDESONIDE/FORMETEROL FUMARATE 160/4.5 mcg INHALER IH SCH (10:23)
[2021-12-24] MEDS: LISINOPRIL 5 MG TABLET PO SCH (10:23)
[2021-12-24] MEDS: NICOTINE 10 MG CARTRIDGE (INHALER) IH PRN (10:24)
[2021-12-24] MEDS: ACETAMINOPHEN 325 MG TABLET (FP) PO PRN (13:54)
[2021-12-24] MEDS: MELATONIN 5 MG TABLETS PO SCH (21:19)
[2021-12-24] MEDS: THIAMINE HCL 100 MG TABLET (FP) PO SCH (21:20)
[2021-12-24] MEDS: ROSUVASTATIN CA 10 MG TABLET PO SCH (21:20)
[2021-12-25] MEDS ORDERED: methaDONE HCL 40 MG DISPERSABLE TABLET ONE (03:10)
[2021-12-25] MEDS ORDERED: methaDONE HCL 10 MG TABLET ONE (03:10)
[2021-12-25] MEDS: methaDONE 40 MG, methaDONE 30 MG PO SCH (06:16)
[2021-12-25] MEDS: ELVITEG/COB/EMTRI/TENOF (GENVOYA) TABLET (NF) PO SCH (07:03)
[2021-12-25] MEDS: NICOTINE 10 MG CARTRIDGE (INHALER) IH PRN (07:12)
[2021-12-25] MEDS ORDERED: cloNIDine HCL 0.1 MG TABLET PO ONE (07:15)
[2021-12-25] MEDS: ASPIRIN 81 MG CHEWABLE TABLETS PO SCH (09:46)
[2021-12-25] MEDS: NICOTINE 7 MG/24 HOURS TOPICAL PATCH TD SCH (09:47)
[2021-12-25] MEDS: APIXABAN 2.5 MG TABLET PO SCH (09:47)
[2021-12-25] MEDS: CARVEDILOL 6.25 MG TABLET (FP) PO SCH ×2 (09:47→21:37)
[2021-12-25] MEDS: LISINOPRIL 5 MG TABLET PO SCH (09:48)
[2021-12-25] MEDS: BUDESONIDE/FORMETEROL FUMARATE 160/4.5 mcg INHALER IH SCH (09:48)
[2021-12-25] MEDS: PRENATAL VITAMINS W/ FOLIC ACID TABLET (FP) PO SCH (09:48)
[2021-12-25] MEDS: TIOTROPIUM BROMIDE 2.5 MCG (SPIRIVA) RESPIMAT INHALER IH SCH (09:48)
[2021-12-25] MEDS: MELATONIN 5 MG TABLETS PO SCH (21:37)
[2021-12-25] MEDS: ROSUVASTATIN CA 10 MG TABLET PO SCH (21:37)
[2021-12-25] MEDS: THIAMINE HCL 100 MG TABLET (FP) PO SCH (21:37)
[2021-12-26] MEDS ORDERED: methaDONE HCL 10 MG TABLET ONE (03:06)
[2021-12-26] MEDS ORDERED: methaDONE HCL 40 MG DISPERSABLE TABLET ONE (03:06)
[2021-12-26] MEDS: NICOTINE 10 MG CARTRIDGE (INHALER) IH PRN (06:25)
[2021-12-26] MEDS: methaDONE 40 MG, methaDONE 30 MG PO SCH (06:25)
[2021-12-26] MEDS: ELVITEG/COB/EMTRI/TENOF (GENVOYA) TABLET (NF) PO SCH (07:05)
[2021-12-26] MEDS: NICOTINE 7 MG/24 HOURS TOPICAL PATCH TD SCH (10:48)
[2021-12-26] MEDS: APIXABAN 2.5 MG TABLET PO SCH (10:48)
[2021-12-26] MEDS: CARVEDILOL 6.25 MG TABLET (FP) PO SCH ×2 (10:48→21:26)
[2021-12-26] MEDS: PRENATAL VITAMINS W/ FOLIC ACID TABLET (FP) PO SCH (10:49)
[2021-12-26] MEDS: LISINOPRIL 5 MG TABLET PO SCH (10:49)
[2021-12-26] MEDS: BUDESONIDE/FORMETEROL FUMARATE 160/4.5 mcg INHALER IH SCH (10:49)
[2021-12-26] MEDS: TIOTROPIUM BROMIDE 2.5 MCG (SPIRIVA) RESPIMAT INHALER IH SCH (10:49)
[2021-12-26] MEDS: ASPIRIN 81 MG CHEWABLE TABLETS PO SCH (10:50)
[2021-12-26] MEDS: THIAMINE HCL 100 MG TABLET (FP) PO SCH (21:25)
[2021-12-26] MEDS: MELATONIN 5 MG TABLETS PO SCH (21:25)
[2021-12-26] MEDS: ROSUVASTATIN CA 10 MG TABLET PO SCH (21:25)
[2021-12-27] MEDS ORDERED: methaDONE HCL 10 MG TABLET ONE (03:08)
[2021-12-27] MEDS ORDERED: methaDONE HCL 40 MG DISPERSABLE TABLET ONE (03:08)
[2021-12-27] MEDS: methaDONE 40 MG, methaDONE 30 MG PO SCH (06:33)
[2021-12-27] MEDS: ELVITEG/COB/EMTRI/TENOF (GENVOYA) TABLET (NF) PO SCH (07:21)
[2021-12-27] MEDS: BUDESONIDE/FORMETEROL FUMARATE 160/4.5 mcg INHALER IH SCH (10:43)
[2021-12-27] MEDS: TIOTROPIUM BROMIDE 2.5 MCG (SPIRIVA) RESPIMAT INHALER IH SCH (10:43)
[2021-12-27] MEDS: ASPIRIN 81 MG CHEWABLE TABLETS PO SCH (10:51)
[2021-12-27] MEDS: CARVEDILOL 6.25 MG TABLET (FP) PO SCH ×2 (10:51→21:23)
[2021-12-27] MEDS: APIXABAN 2.5 MG TABLET PO SCH (10:51)
[2021-12-27] MEDS: NICOTINE 7 MG/24 HOURS TOPICAL PATCH TD SCH (10:53)
[2021-12-27] MEDS: PRENATAL VITAMINS W/ FOLIC ACID TABLET (FP) PO SCH (10:53)
[2021-12-27] MEDS: NICOTINE 10 MG CARTRIDGE (INHALER) IH PRN (10:54)
[2021-12-27] MEDS: LISINOPRIL 5 MG TABLET PO SCH (13:46)
[2021-12-27] MEDS: ROSUVASTATIN CA 10 MG TABLET PO SCH (21:24)
[2021-12-27] MEDS: MELATONIN 5 MG TABLETS PO SCH (21:24)
[2021-12-27] MEDS: THIAMINE HCL 100 MG TABLET (FP) PO SCH (21:24)
[2021-12-28] MEDS ORDERED: methaDONE HCL 40 MG DISPERSABLE TABLET ONE (03:51)
[2021-12-28] MEDS ORDERED: methaDONE HCL 10 MG TABLET ONE (03:51)
[2021-12-28] MEDS: methaDONE 40 MG, methaDONE 30 MG PO SCH (05:50)
[2021-12-28] MEDS: NICOTINE 10 MG CARTRIDGE (INHALER) IH PRN ×2 (06:20→21:46)
[2021-12-28] MEDS: ELVITEG/COB/EMTRI/TENOF (GENVOYA) TABLET (NF) PO SCH (07:00)
[2021-12-28] MEDS ORDERED: hydrOXYzine PAMOATE 25 MG CAPSULE (FP) PO PRN (08:59)
[2021-12-28] MEDS: PRENATAL VITAMINS W/ FOLIC ACID TABLET (FP) PO SCH (09:59)
[2021-12-28] MEDS: LISINOPRIL 5 MG TABLET PO SCH (09:59)
[2021-12-28] MEDS: CARVEDILOL 6.25 MG TABLET (FP) PO SCH ×2 (09:59→21:44)
[2021-12-28] MEDS: ASPIRIN 81 MG CHEWABLE TABLETS PO SCH (10:00)
[2021-12-28] MEDS: ACETAMINOPHEN 325 MG TABLET (FP) PO PRN ×2 (10:00→21:45)
[2021-12-28] MEDS: NICOTINE 7 MG/24 HOURS TOPICAL PATCH TD SCH (11:02)
[2021-12-28] MEDS: BUDESONIDE/FORMETEROL FUMARATE 160/4.5 mcg INHALER IH SCH (11:02)
[2021-12-28] MEDS: TIOTROPIUM BROMIDE 2.5 MCG (SPIRIVA) RESPIMAT INHALER IH SCH (11:02)
[2021-12-28] MEDS: APIXABAN 2.5 MG TABLET PO SCH (11:04)
[2021-12-28] MEDS: THIAMINE HCL 100 MG TABLET (FP) PO SCH (21:44)
[2021-12-28] MEDS: ROSUVASTATIN CA 10 MG TABLET PO SCH (21:44)
[2021-12-28] MEDS: MELATONIN 5 MG TABLETS PO SCH (21:44)
[2021-12-29] MEDS ORDERED: methaDONE HCL 40 MG DISPERSABLE TABLET ONE (05:51)
[2021-12-29] MEDS ORDERED: methaDONE HCL 10 MG TABLET ONE (05:51)
[2021-12-29] MEDS ORDERED: methaDONE HCL 10 MG TABLET PO SCH (06:00)
[2021-12-29] MEDS: methaDONE 40 MG, methaDONE 30 MG PO SCH (06:31)
[2021-12-29] MEDS: FUROSEMIDE 20 MG TABLET (FP) PO SCH ×2 (06:31→14:22)
[2021-12-29] MEDS: NICOTINE 10 MG CARTRIDGE (INHALER) IH PRN ×2 (06:34→14:22)
[2021-12-29] MEDS: ELVITEG/COB/EMTRI/TENOF (GENVOYA) TABLET (NF) PO SCH (07:03)
[2021-12-29] MEDS: LISINOPRIL 5 MG TABLET PO SCH (09:55)
[2021-12-29] MEDS: ASPIRIN 81 MG CHEWABLE TABLETS PO SCH (09:55)
[2021-12-29] MEDS: BUDESONIDE/FORMETEROL FUMARATE 160/4.5 mcg INHALER IH SCH (09:55)
[2021-12-29] MEDS: PRENATAL VITAMINS W/ FOLIC ACID TABLET (FP) PO SCH (09:55)
[2021-12-29] MEDS: TIOTROPIUM BROMIDE 2.5 MCG (SPIRIVA) RESPIMAT INHALER IH SCH (09:55)
[2021-12-29] MEDS: NICOTINE 7 MG/24 HOURS TOPICAL PATCH TD SCH (09:55)
[2021-12-29] MEDS: CARVEDILOL 6.25 MG TABLET (FP) PO SCH ×2 (09:55→21:42)
[2021-12-29] MEDS: APIXABAN 2.5 MG TABLET PO SCH (09:56)
[2021-12-29] MEDS: ACETAMINOPHEN 325 MG TABLET (FP) PO PRN (21:42)
[2021-12-29] MEDS: MELATONIN 5 MG TABLETS PO SCH (21:42)
[2021-12-29] MEDS: ROSUVASTATIN CA 10 MG TABLET PO SCH (21:42)
[2021-12-29] MEDS: THIAMINE HCL 100 MG TABLET (FP) PO SCH (21:42)
[2021-12-30] MEDS ORDERED: methaDONE HCL 10 MG TABLET ONE (03:13)
[2021-12-30] MEDS ORDERED: methaDONE HCL 40 MG DISPERSABLE TABLET ONE (03:13)
[2021-12-30] MEDS: FUROSEMIDE 20 MG TABLET (FP) PO SCH ×2 (06:06→14:20)
[2021-12-30] MEDS: methaDONE 40 MG, methaDONE 30 MG PO SCH (06:06)
[2021-12-30] MEDS: NICOTINE 10 MG CARTRIDGE (INHALER) IH PRN ×2 (06:10→10:57)
[2021-12-30] MEDS: ELVITEG/COB/EMTRI/TENOF (GENVOYA) TABLET (NF) PO SCH (07:07)
[2021-12-30] MEDS: ASPIRIN 81 MG CHEWABLE TABLETS PO SCH (10:53)
[2021-12-30] MEDS: PRENATAL VITAMINS W/ FOLIC ACID TABLET (FP) PO SCH (10:53)
[2021-12-30] MEDS: LISINOPRIL 5 MG TABLET PO SCH (10:53)
[2021-12-30] MEDS: TIOTROPIUM BROMIDE 2.5 MCG (SPIRIVA) RESPIMAT INHALER IH SCH (10:54)
[2021-12-30] MEDS: NICOTINE 7 MG/24 HOURS TOPICAL PATCH TD SCH (10:54)
[2021-12-30] MEDS: CARVEDILOL 6.25 MG TABLET (FP) PO SCH ×2 (10:55→21:05)
[2021-12-30] MEDS: BUDESONIDE/FORMETEROL FUMARATE 160/4.5 mcg INHALER IH SCH (10:55)
[2021-12-30] MEDS: APIXABAN 2.5 MG TABLET PO SCH (11:00)
[2021-12-30] MEDS: MELATONIN 5 MG TABLETS PO SCH (21:05)
[2021-12-30] MEDS: THIAMINE HCL 100 MG TABLET (FP) PO SCH (21:05)
[2021-12-30] MEDS: ROSUVASTATIN CA 10 MG TABLET PO SCH (21:05)
[2021-12-31] MEDS ORDERED: methaDONE HCL 10 MG TABLET ONE (03:41)
[2021-12-31] MEDS ORDERED: methaDONE HCL 40 MG DISPERSABLE TABLET ONE (03:41)
[2021-12-31] MEDS: FUROSEMIDE 20 MG TABLET (FP) PO SCH ×2 (06:12→14:23)
[2021-12-31] MEDS: methaDONE 40 MG, methaDONE 30 MG PO SCH (06:12)
[2021-12-31] MEDS: ELVITEG/COB/EMTRI/TENOF (GENVOYA) TABLET (NF) PO SCH (07:01)
[2021-12-31] MEDS: PRENATAL VITAMINS W/ FOLIC ACID TABLET (FP) PO SCH (09:55)
[2021-12-31] MEDS: BUDESONIDE/FORMETEROL FUMARATE 160/4.5 mcg INHALER IH SCH (09:56)
[2021-12-31] MEDS: LISINOPRIL 5 MG TABLET PO SCH (09:56)
[2021-12-31] MEDS: CARVEDILOL 6.25 MG TABLET (FP) PO SCH ×2 (09:56→21:07)
[2021-12-31] MEDS: ASPIRIN 81 MG CHEWABLE TABLETS PO SCH (09:56)
[2021-12-31] MEDS: TIOTROPIUM BROMIDE 2.5 MCG (SPIRIVA) RESPIMAT INHALER IH SCH (09:56)
[2021-12-31] MEDS: APIXABAN 2.5 MG TABLET PO SCH (09:56)
[2021-12-31] MEDS: NICOTINE 7 MG/24 HOURS TOPICAL PATCH TD SCH (10:45)
[2021-12-31] MEDS: ROSUVASTATIN CA 10 MG TABLET PO SCH (21:07)
[2021-12-31] MEDS: MELATONIN 5 MG TABLETS PO SCH (21:07)
[2021-12-31] MEDS: THIAMINE HCL 100 MG TABLET (FP) PO SCH (21:08)
[2022-01-01] MEDS ORDERED: methaDONE HCL 40 MG DISPERSABLE TABLET ONE (03:42)
[2022-01-01] MEDS ORDERED: methaDONE HCL 10 MG TABLET ONE (03:42)
[2022-01-01] MEDS: FUROSEMIDE 20 MG TABLET (FP) PO SCH ×2 (06:27→13:57)
[2022-01-01] MEDS: methaDONE 40 MG, methaDONE 30 MG PO SCH (06:27)
[2022-01-01] MEDS: NICOTINE 10 MG CARTRIDGE (INHALER) IH PRN (06:30)
[2022-01-01] MEDS: ELVITEG/COB/EMTRI/TENOF (GENVOYA) TABLET (NF) PO SCH (07:19)
[2022-01-01] MEDS: NICOTINE 7 MG/24 HOURS TOPICAL PATCH TD SCH (09:55)
[2022-01-01] MEDS: PRENATAL VITAMINS W/ FOLIC ACID TABLET (FP) PO SCH (09:55)
[2022-01-01] MEDS: ASPIRIN 81 MG CHEWABLE TABLETS PO SCH (09:55)
[2022-01-01] MEDS: CARVEDILOL 6.25 MG TABLET (FP) PO SCH ×2 (09:55→21:07)
[2022-01-01] MEDS: LISINOPRIL 5 MG TABLET PO SCH (09:55)
[2022-01-01] MEDS: APIXABAN 2.5 MG TABLET PO SCH (09:57)
[2022-01-01] MEDS: TIOTROPIUM BROMIDE 2.5 MCG (SPIRIVA) RESPIMAT INHALER IH SCH (09:58)
[2022-01-01] MEDS: BUDESONIDE/FORMETEROL FUMARATE 160/4.5 mcg INHALER IH SCH (09:58)
[2022-01-01] MEDS: MELATONIN 5 MG TABLETS PO SCH (21:06)
[2022-01-01] MEDS: ROSUVASTATIN CA 10 MG TABLET PO SCH (21:06)
[2022-01-01] MEDS: THIAMINE HCL 100 MG TABLET (FP) PO SCH (21:07)
[2022-01-01] MEDS: ACETAMINOPHEN 325 MG TABLET (FP) PO PRN (21:08)
[2022-01-02] MEDS ORDERED: methaDONE HCL 40 MG DISPERSABLE TABLET ONE (03:09)
[2022-01-02] MEDS ORDERED: methaDONE HCL 10 MG TABLET ONE (03:09)
[2022-01-02] MEDS: methaDONE 40 MG, methaDONE 30 MG PO SCH (06:14)
[2022-01-02] MEDS: FUROSEMIDE 20 MG TABLET (FP) PO SCH ×2 (06:15→14:58)
[2022-01-02] MEDS: NICOTINE 10 MG CARTRIDGE (INHALER) IH PRN ×2 (06:20→14:58)
[2022-01-02] MEDS: ELVITEG/COB/EMTRI/TENOF (GENVOYA) TABLET (NF) PO SCH (07:14)
[2022-01-02] MEDS: LISINOPRIL 5 MG TABLET PO SCH (07:43)
[2022-01-02] MEDS: PRENATAL VITAMINS W/ FOLIC ACID TABLET (FP) PO SCH (10:39)
[2022-01-02] MEDS: APIXABAN 2.5 MG TABLET PO SCH (10:39)
[2022-01-02] MEDS: NICOTINE 7 MG/24 HOURS TOPICAL PATCH TD SCH (10:39)
[2022-01-02] MEDS: CARVEDILOL 6.25 MG TABLET (FP) PO SCH ×2 (10:39→21:44)
[2022-01-02] MEDS: ASPIRIN 81 MG CHEWABLE TABLETS PO SCH (10:39)
[2022-01-02] MEDS: BUDESONIDE/FORMETEROL FUMARATE 160/4.5 mcg INHALER IH SCH (10:41)
[2022-01-02] MEDS: TIOTROPIUM BROMIDE 2.5 MCG (SPIRIVA) RESPIMAT INHALER IH SCH (10:41)
[2022-01-02] MEDS: MELATONIN 5 MG TABLETS PO SCH (21:44)
[2022-01-02] MEDS: ROSUVASTATIN CA 10 MG TABLET PO SCH (21:44)
[2022-01-02] MEDS: THIAMINE HCL 100 MG TABLET (FP) PO SCH (21:44)
[2022-01-03] MEDS ORDERED: methaDONE HCL 10 MG TABLET ONE (03:15)
[2022-01-03] MEDS ORDERED: methaDONE HCL 40 MG DISPERSABLE TABLET ONE (03:15)
[2022-01-03] MEDS: methaDONE 40 MG, methaDONE 30 MG PO SCH (06:29)
[2022-01-03] MEDS: FUROSEMIDE 20 MG TABLET (FP) PO SCH (06:30)
[2022-01-03] MEDS: LISINOPRIL 5 MG TABLET PO SCH (06:30)
[2022-01-03] MEDS: NICOTINE 10 MG CARTRIDGE (INHALER) IH PRN (06:32)
[2022-01-03 06:44] VITALS: BP 160/97; PULSE 53; RESP 18; TEMP 97.5
[2022-01-03] MEDS: ELVITEG/COB/EMTRI/TENOF (GENVOYA) TABLET (NF) PO SCH (07:52)
== END 2022-01-03 10:00 | disposition home or self-care (01) | DRG 772 ==
LOC: YASAS 12:20 → Y3W 20:44
PROVIDERS: ADMIT Allergy & Immunology; ATTEND Psychiatry & Neurology Pain Medicine
PROC: HZ42ZZZ Group Counseling for Substance Abuse Treatment, Cognitive-Behavioral (ICD-10-PCS; principal; 2021-12-20)
DX: F11.20 Opioid dependence, uncomplicated (principal); F10.20 Alcohol dependence, uncomplicated; F14.20 Cocaine dependence, uncomplicated; F12.20 Cannabis dependence, uncomplicated; F17.210 Nicotine dependence, cigarettes, uncomplicated; Z21 Asymptomatic human immunodeficiency virus [HIV] infection status; I10 Essential (primary) hypertension; B18.2 Chronic viral hepatitis C; R00.1 Bradycardia, unspecified; Z86.718 Personal history of other venous thrombosis and embolism; Z79.01 Long term (current) use of anticoagulants; Z28.310 Unvaccinated for COVID-19
CPT/HCPCS: 36415; 80053; 85025; 85027; 86780; 86803; 87389; 87522; C9803-CS; J0735; U0003; U0005

== ENCOUNTER 2022-12-23 11:59 | Inpatient (IN) | payer OTHER ==
[2022-12-23 12:44] VITALS: BMI 21.4
[2022-12-23] MEDS ORDERED: AMMONIUM LACTATE 12% LOTION 225 GM BOTTLE TP PRN (13:23)
[2022-12-23] MEDS ORDERED: IBUPROFEN 400 MG TABLET (FP) PO PRN (13:23)
[2022-12-23] MEDS ORDERED: MAGNESIUM HYDROX 2400MG/30ML ORAL SUSPENSION 30 ML CUP PO PRN (13:23)
[2022-12-23] MEDS ORDERED: BENZONATATE 200 MG CAPSULE PO PRN (13:23)
[2022-12-23] MEDS ORDERED: MAG HYDROX/AL HYDROX/SIMETH 30 ML UNIT-DOSE CUP PO PRN (13:23)
[2022-12-23] MEDS ORDERED: BENZOCAINE/MENTHOL (CHLORASEPTIC ) LOZENGE MM PRN (13:23)
[2022-12-23] MEDS ORDERED: POLYETHYLENE GLYCOL (HEALTHYLAX) 3350 17 GM PACKET PO PRN (13:23)
[2022-12-23] MEDS ORDERED: NALOXONE HCL 0.4 MG/ML VIAL IM PRN (13:23)
[2022-12-23] MEDS ORDERED: COLLOIDAL OATMEAL 1 BAR EACH TP PRN (13:23)
[2022-12-23] MEDS ORDERED: guaiFENesin 600 MG TABLET.ER (FP) PO PRN (13:23)
[2022-12-23] MEDS ORDERED: NALOXONE HCL (KLOXXADO) 8 MG SPRAY NS PRN (13:23)
[2022-12-23] MEDS ORDERED: LOPERAMIDE HCL 2 MG CAPSULE PO PRN (13:23)
[2022-12-23] MEDS ORDERED: P-EPHED 60MG/TRIPROLIDI 2.5MG TABLET PO PRN (13:23)
[2022-12-23] MEDS ORDERED: cloNIDine HCL 0.1 MG TABLET PO ONE ×2 (13:45→15:46)
[2022-12-23] MEDS: ELVITEG/COB/EMTRI/TENOF (GENVOYA) TABLET PO SCH (15:14)
[2022-12-23] MEDS ORDERED: cloNIDine HCL 0.1 MG TABLET PO PRN ×2 (15:48→18:00)
[2022-12-23] MEDS: MELATONIN 5 MG TABLETS PO SCH (21:24)
[2022-12-23] MEDS: THIAMINE HCL 100 MG TABLET (FP) PO SCH (21:24)
[2022-12-23] MEDS: cloNIDine HCL 0.1 MG TABLET PO PRN (21:25)
[2022-12-24] MEDS: methaDONE HCL 10 MG TABLET PO SCH (07:47)
[2022-12-24] MEDS: ELVITEG/COB/EMTRI/TENOF (GENVOYA) TABLET PO SCH (07:48)
[2022-12-24] MEDS: LIDOCAINE 5% TOPICAL PATCH TP SCH (10:03)
[2022-12-24] MEDS: PRENATAL VITAMINS W/ FOLIC ACID TABLET (FP) PO SCH (10:04)
[2022-12-24] MEDS: LISINOPRIL 5 MG TABLET PO SCH (10:04)
[2022-12-24] MEDS: NICOTINE 21 MG/24 HOURS TOPICAL PATCH TD SCH (11:42)
[2022-12-24 18:33] LABS: PH,URINE 5.5 (5.0-8.0); URINE APPEARANCE CLEAR; URINE BILIRUBIN NEGATIVE (NEGATIVE); URINE COLOR YELLOW; URINE GLUCOSE (UA) NEGATIVE (NEGATIVE); URINE KETONE NEGATIVE (NEGATIVE); URINE LEUK ESTERASE NEGATIVE (NEGATIVE); URINE NITRITE NEGATIVE (NEGATIVE); URINE PROTEIN NEGATIVE (NEGATIVE)
[2022-12-24] MEDS: cloNIDine HCL 0.1 MG TABLET PO PRN (21:15)
[2022-12-24] MEDS: LIDOCAINE PATCH REMOVAL MC SCH (21:15)
[2022-12-24] MEDS: MELATONIN 5 MG TABLETS PO SCH (21:15)
[2022-12-24] MEDS: THIAMINE HCL 100 MG TABLET (FP) PO SCH (21:15)
[2022-12-25] MEDS: methaDONE HCL 10 MG TABLET PO SCH (06:25)
[2022-12-25] MEDS: ELVITEG/COB/EMTRI/TENOF (GENVOYA) TABLET PO SCH (08:02)
[2022-12-25] MEDS: LISINOPRIL 5 MG TABLET PO SCH (09:19)
[2022-12-25] MEDS: IBUPROFEN 600 MG TABLET (FP) PO PRN ×2 (09:19→15:05)
[2022-12-25] MEDS: PRENATAL VITAMINS W/ FOLIC ACID TABLET (FP) PO SCH (09:20)
[2022-12-25] MEDS: LIDOCAINE 5% TOPICAL PATCH TP SCH (09:21)
[2022-12-25] MEDS: NICOTINE 21 MG/24 HOURS TOPICAL PATCH TD SCH (09:21)
[2022-12-25 10:42] LABS: HEMATOCRIT 37.1 % (35.4-49); HEMOGLOBIN 11.9 GM/dL (11.7-16.9); MCH 27.3 pg (25.7-33.7); MCHC 32.1 g/dl (32.0-35.9); MEAN PLT VOLUME 6.6 fl (7.5-11.1); PLATELET COUNT 210 10^3/uL (134-434); RBC 4.36 M/mm3 (4.00-5.60)
[2022-12-25 10:45] LABS: POTASSIUM 4.4 mmol/L (3.5-5.1)
[2022-12-25 10:47] LABS: WHITE BLOOD COUNT 1.6 K/mm3 (4.0-10.0)
[2022-12-25 10:48] LABS: CALCIUM 8.9 mg/dL (8.5-10.1)
[2022-12-25 10:49] LABS: ALBUMIN 2.9 g/dl (3.4-5.0); BLOOD UREA NITROGEN 15.8 mg/dL (7-18)
[2022-12-25 10:52] LABS: CREATININE 0.9 mg/dL (0.55-1.3)
[2022-12-25 10:53] LABS: BILIRUBIN,TOTAL 0.9 mg/dL (0.2-1); TOT PROT 7.2 g/dl (6.4-8.2)
[2022-12-25] MEDS: cloNIDine HCL 0.1 MG TABLET PO PRN ×2 (15:05→21:30)
[2022-12-25] MEDS: ZINC SULFATE 220 MG CAPSULE (FP) PO SCH (18:02)
[2022-12-25] MEDS: ASCORBIC ACID 500 MG TABLET (FP) PO SCH (18:02)
[2022-12-25] MEDS: THIAMINE HCL 100 MG TABLET (FP) PO SCH (21:30)
[2022-12-25] MEDS: MELATONIN 5 MG TABLETS PO SCH (21:30)
[2022-12-25] MEDS: LIDOCAINE PATCH REMOVAL MC SCH (21:31)
[2022-12-26] MEDS: methaDONE HCL 10 MG TABLET PO SCH (06:29)
[2022-12-26] MEDS: ELVITEG/COB/EMTRI/TENOF (GENVOYA) TABLET PO SCH (07:11)
[2022-12-26] MEDS: LIDOCAINE 5% TOPICAL PATCH TP SCH (10:29)
[2022-12-26] MEDS: PRENATAL VITAMINS W/ FOLIC ACID TABLET (FP) PO SCH (10:30)
[2022-12-26] MEDS: LISINOPRIL 5 MG TABLET PO SCH (10:30)
[2022-12-26] MEDS: ASCORBIC ACID 500 MG TABLET (FP) PO SCH (10:30)
[2022-12-26] MEDS: NICOTINE 21 MG/24 HOURS TOPICAL PATCH TD SCH (10:30)
[2022-12-26] MEDS: ZINC SULFATE 220 MG CAPSULE (FP) PO SCH (10:30)
[2022-12-26] MEDS: IBUPROFEN 600 MG TABLET (FP) PO PRN (14:53)
[2022-12-26] MEDS: LIDOCAINE PATCH REMOVAL MC SCH (21:34)
[2022-12-26] MEDS: cloNIDine HCL 0.1 MG TABLET PO PRN (21:34)
[2022-12-26] MEDS: THIAMINE HCL 100 MG TABLET (FP) PO SCH (21:34)
[2022-12-26] MEDS: MELATONIN 5 MG TABLETS PO SCH (21:34)
[2022-12-27] MEDS: methaDONE HCL 10 MG TABLET PO SCH (06:27)
[2022-12-27] MEDS: ELVITEG/COB/EMTRI/TENOF (GENVOYA) TABLET PO SCH (07:11)
[2022-12-27] MEDS: methaDONE 40 MG, methaDONE 30 MG PO SCH (08:50)
[2022-12-27] MEDS: ASCORBIC ACID 500 MG TABLET (FP) PO SCH (10:15)
[2022-12-27] MEDS: PRENATAL VITAMINS W/ FOLIC ACID TABLET (FP) PO SCH (10:15)
[2022-12-27] MEDS: LISINOPRIL 5 MG TABLET PO SCH (10:15)
[2022-12-27] MEDS: ZINC SULFATE 220 MG CAPSULE (FP) PO SCH (10:15)
[2022-12-27] MEDS: LIDOCAINE 5% TOPICAL PATCH TP SCH (10:16)
[2022-12-27] MEDS: NICOTINE 21 MG/24 HOURS TOPICAL PATCH TD SCH (10:16)
[2022-12-27] MEDS: LIDOCAINE PATCH REMOVAL MC SCH (21:52)
[2022-12-27] MEDS: THIAMINE HCL 100 MG TABLET (FP) PO SCH (21:53)
[2022-12-27] MEDS: cloNIDine HCL 0.1 MG TABLET PO PRN (21:53)
[2022-12-27] MEDS: MELATONIN 5 MG TABLETS PO SCH (21:53)
[2022-12-28] MEDS: methaDONE 40 MG, methaDONE 30 MG PO SCH (06:25)
[2022-12-28] MEDS: ELVITEG/COB/EMTRI/TENOF (GENVOYA) TABLET PO SCH (07:21)
[2022-12-28] MEDS: LISINOPRIL 5 MG TABLET PO SCH (10:16)
[2022-12-28] MEDS: ZINC SULFATE 220 MG CAPSULE (FP) PO SCH (10:16)
[2022-12-28] MEDS: ASCORBIC ACID 500 MG TABLET (FP) PO SCH (10:16)
[2022-12-28] MEDS: NICOTINE 21 MG/24 HOURS TOPICAL PATCH TD SCH (10:16)
[2022-12-28] MEDS: PRENATAL VITAMINS W/ FOLIC ACID TABLET (FP) PO SCH (10:16)
[2022-12-28] MEDS: LIDOCAINE 5% TOPICAL PATCH TP SCH (10:16)
[2022-12-28] MEDS: LIDOCAINE PATCH REMOVAL MC SCH (21:09)
[2022-12-28] MEDS: MELATONIN 5 MG TABLETS PO SCH (21:09)
[2022-12-28] MEDS: THIAMINE HCL 100 MG TABLET (FP) PO SCH (21:09)
[2022-12-28] MEDS: cloNIDine HCL 0.1 MG TABLET PO PRN (21:10)
[2022-12-29] MEDS: methaDONE 40 MG, methaDONE 30 MG PO SCH (06:39)
[2022-12-29] MEDS: ELVITEG/COB/EMTRI/TENOF (GENVOYA) TABLET PO SCH (07:09)
[2022-12-29] MEDS: LISINOPRIL 5 MG TABLET PO SCH (10:05)
[2022-12-29] MEDS: PRENATAL VITAMINS W/ FOLIC ACID TABLET (FP) PO SCH (10:05)
[2022-12-29] MEDS: ZINC SULFATE 220 MG CAPSULE (FP) PO SCH (10:06)
[2022-12-29] MEDS: LIDOCAINE 5% TOPICAL PATCH TP SCH (10:06)
[2022-12-29] MEDS: NICOTINE 21 MG/24 HOURS TOPICAL PATCH TD SCH (10:06)
[2022-12-29] MEDS: ASCORBIC ACID 500 MG TABLET (FP) PO SCH (10:06)
[2022-12-29] MEDS: ASPIRIN 81 MG CHEWABLE TABLETS PO SCH (12:36)
[2022-12-29] MEDS: PANTOPRAZOLE 20 MG TABLET PO SCH (12:51)
[2022-12-29] MEDS: MELATONIN 5 MG TABLETS PO SCH (21:17)
[2022-12-29] MEDS: LIDOCAINE PATCH REMOVAL MC SCH (21:17)
[2022-12-29] MEDS: THIAMINE HCL 100 MG TABLET (FP) PO SCH (21:17)
[2022-12-29] MEDS: cloNIDine HCL 0.1 MG TABLET PO PRN (21:18)
[2022-12-30] MEDS: methaDONE 40 MG, methaDONE 30 MG PO SCH (06:32)
[2022-12-30] MEDS: ELVITEG/COB/EMTRI/TENOF (GENVOYA) TABLET PO SCH (07:30)
[2022-12-30] MEDS: ASPIRIN 81 MG CHEWABLE TABLETS PO SCH (09:47)
[2022-12-30] MEDS: NICOTINE 21 MG/24 HOURS TOPICAL PATCH TD SCH (09:47)
[2022-12-30] MEDS: LIDOCAINE 5% TOPICAL PATCH TP SCH (09:47)
[2022-12-30] MEDS: LISINOPRIL 5 MG TABLET PO SCH (09:47)
[2022-12-30] MEDS: PRENATAL VITAMINS W/ FOLIC ACID TABLET (FP) PO SCH (09:48)
[2022-12-30] MEDS: ASCORBIC ACID 500 MG TABLET (FP) PO SCH (09:48)
[2022-12-30] MEDS: ZINC SULFATE 220 MG CAPSULE (FP) PO SCH (09:48)
[2022-12-30] MEDS: PANTOPRAZOLE 20 MG TABLET PO SCH (09:48)
[2022-12-30] MEDS: THIAMINE HCL 100 MG TABLET (FP) PO SCH (21:47)
[2022-12-30] MEDS: cloNIDine HCL 0.1 MG TABLET PO PRN (21:47)
[2022-12-30] MEDS: LIDOCAINE PATCH REMOVAL MC SCH (21:48)
[2022-12-30] MEDS: MELATONIN 5 MG TABLETS PO SCH (21:48)
[2022-12-31] MEDS: methaDONE 40 MG, methaDONE 30 MG PO SCH (06:10)
[2022-12-31] MEDS: ELVITEG/COB/EMTRI/TENOF (GENVOYA) TABLET PO SCH (07:07)
[2022-12-31] MEDS: NICOTINE 21 MG/24 HOURS TOPICAL PATCH TD SCH (09:41)
[2022-12-31] MEDS: ASPIRIN 81 MG CHEWABLE TABLETS PO SCH (09:41)
[2022-12-31] MEDS: LIDOCAINE 5% TOPICAL PATCH TP SCH (09:41)
[2022-12-31] MEDS: PRENATAL VITAMINS W/ FOLIC ACID TABLET (FP) PO SCH (09:42)
[2022-12-31] MEDS: ASCORBIC ACID 500 MG TABLET (FP) PO SCH (09:42)
[2022-12-31] MEDS: ZINC SULFATE 220 MG CAPSULE (FP) PO SCH (09:42)
[2022-12-31] MEDS: PANTOPRAZOLE 20 MG TABLET PO SCH (09:42)
[2022-12-31] MEDS ORDERED: LISINOPRIL 10 MG TABLET PO SCH (10:00)
[2022-12-31] MEDS: cloNIDine HCL 0.1 MG TABLET PO PRN (21:21)
[2022-12-31] MEDS: MELATONIN 5 MG TABLETS PO SCH (21:21)
[2022-12-31] MEDS: THIAMINE HCL 100 MG TABLET (FP) PO SCH (21:21)
[2022-12-31] MEDS: LIDOCAINE PATCH REMOVAL MC SCH (21:22)
[2023-01-01] MEDS ORDERED: methaDONE HCL 10 MG TABLET PO SCH (06:00)
[2023-01-01] MEDS: methaDONE 40 MG, methaDONE 30 MG PO SCH (06:33)
[2023-01-01] MEDS: ELVITEG/COB/EMTRI/TENOF (GENVOYA) TABLET PO SCH (07:07)
[2023-01-01] MEDS: NICOTINE 21 MG/24 HOURS TOPICAL PATCH TD SCH (09:42)
[2023-01-01] MEDS: LIDOCAINE 5% TOPICAL PATCH TP SCH (09:42)
[2023-01-01] MEDS: ASPIRIN 81 MG CHEWABLE TABLETS PO SCH (09:42)
[2023-01-01] MEDS: LISINOPRIL 20 MG TABLET PO SCH (09:43)
[2023-01-01] MEDS: ZINC SULFATE 220 MG CAPSULE (FP) PO SCH (09:43)
[2023-01-01] MEDS: ASCORBIC ACID 500 MG TABLET (FP) PO SCH (09:43)
[2023-01-01] MEDS: PRENATAL VITAMINS W/ FOLIC ACID TABLET (FP) PO SCH (09:43)
[2023-01-01] MEDS: PANTOPRAZOLE 20 MG TABLET PO SCH (09:43)
[2023-01-01] MEDS: cloNIDine HCL 0.1 MG TABLET PO PRN (21:18)
[2023-01-01] MEDS: MELATONIN 5 MG TABLETS PO SCH (21:18)
[2023-01-01] MEDS: THIAMINE HCL 100 MG TABLET (FP) PO SCH (21:18)
[2023-01-01] MEDS: LIDOCAINE PATCH REMOVAL MC SCH (21:18)
[2023-01-02] MEDS: methaDONE 40 MG, methaDONE 30 MG PO SCH (06:28)
[2023-01-02] MEDS: ELVITEG/COB/EMTRI/TENOF (GENVOYA) TABLET PO SCH (07:43)
[2023-01-02] MEDS: LIDOCAINE 5% TOPICAL PATCH TP SCH (10:05)
[2023-01-02] MEDS: ZINC SULFATE 220 MG CAPSULE (FP) PO SCH (10:06)
[2023-01-02] MEDS: PRENATAL VITAMINS W/ FOLIC ACID TABLET (FP) PO SCH (10:06)
[2023-01-02] MEDS: NICOTINE 21 MG/24 HOURS TOPICAL PATCH TD SCH (10:06)
[2023-01-02] MEDS: ASPIRIN 81 MG CHEWABLE TABLETS PO SCH (10:06)
[2023-01-02] MEDS: LISINOPRIL 20 MG TABLET PO SCH (10:06)
[2023-01-02] MEDS: PANTOPRAZOLE 20 MG TABLET PO SCH (10:06)
[2023-01-02] MEDS: ASCORBIC ACID 500 MG TABLET (FP) PO SCH (10:06)
[2023-01-02] MEDS: cloNIDine HCL 0.1 MG TABLET PO PRN (21:11)
[2023-01-02] MEDS: MELATONIN 5 MG TABLETS PO SCH (21:11)
[2023-01-02] MEDS: THIAMINE HCL 100 MG TABLET (FP) PO SCH (21:11)
[2023-01-02] MEDS: LIDOCAINE PATCH REMOVAL MC SCH (21:11)
[2023-01-03] MEDS: methaDONE 40 MG, methaDONE 30 MG PO SCH (06:16)
[2023-01-03] MEDS: ELVITEG/COB/EMTRI/TENOF (GENVOYA) TABLET PO SCH (07:34)
[2023-01-03] MEDS: NICOTINE 21 MG/24 HOURS TOPICAL PATCH TD SCH (09:39)
[2023-01-03] MEDS: LIDOCAINE 5% TOPICAL PATCH TP SCH (09:39)
[2023-01-03] MEDS: ASPIRIN 81 MG CHEWABLE TABLETS PO SCH (09:39)
[2023-01-03] MEDS: ZINC SULFATE 220 MG CAPSULE (FP) PO SCH (09:39)
[2023-01-03] MEDS: ASCORBIC ACID 500 MG TABLET (FP) PO SCH (09:40)
[2023-01-03] MEDS: PANTOPRAZOLE 20 MG TABLET PO SCH (09:40)
[2023-01-03] MEDS: PRENATAL VITAMINS W/ FOLIC ACID TABLET (FP) PO SCH (09:40)
[2023-01-03] MEDS: LISINOPRIL 20 MG TABLET PO SCH (09:40)
[2023-01-03] MEDS: LIDOCAINE PATCH REMOVAL MC SCH (21:32)
[2023-01-03] MEDS: cloNIDine HCL 0.1 MG TABLET PO PRN (21:33)
[2023-01-03] MEDS: THIAMINE HCL 100 MG TABLET (FP) PO SCH (21:33)
[2023-01-03] MEDS: MELATONIN 5 MG TABLETS PO SCH (21:33)
[2023-01-04] MEDS: methaDONE 40 MG, methaDONE 30 MG PO SCH (06:29)
[2023-01-04] MEDS: cloNIDine HCL 0.1 MG TABLET PO PRN ×2 (07:03→21:09)
[2023-01-04] MEDS: ELVITEG/COB/EMTRI/TENOF (GENVOYA) TABLET PO SCH (07:03)
[2023-01-04] MEDS: PRENATAL VITAMINS W/ FOLIC ACID TABLET (FP) PO SCH (09:56)
[2023-01-04] MEDS: IBUPROFEN 600 MG TABLET (FP) PO PRN (09:56)
[2023-01-04] MEDS: ASPIRIN 81 MG CHEWABLE TABLETS PO SCH (09:56)
[2023-01-04] MEDS: LIDOCAINE 5% TOPICAL PATCH TP SCH (09:57)
[2023-01-04] MEDS: ASCORBIC ACID 500 MG TABLET (FP) PO SCH (09:57)
[2023-01-04] MEDS: ZINC SULFATE 220 MG CAPSULE (FP) PO SCH (09:57)
[2023-01-04] MEDS: NICOTINE 21 MG/24 HOURS TOPICAL PATCH TD SCH (09:57)
[2023-01-04] MEDS: PANTOPRAZOLE 20 MG TABLET PO SCH (09:57)
[2023-01-04] MEDS: LISINOPRIL 20 MG TABLET PO SCH (09:57)
[2023-01-04] MEDS: MELATONIN 5 MG TABLETS PO SCH (21:08)
[2023-01-04] MEDS: LIDOCAINE PATCH REMOVAL MC SCH (21:08)
[2023-01-04] MEDS: THIAMINE HCL 100 MG TABLET (FP) PO SCH (21:08)
[2023-01-05] MEDS: methaDONE 40 MG, methaDONE 30 MG PO SCH (06:18)
[2023-01-05] MEDS: ELVITEG/COB/EMTRI/TENOF (GENVOYA) TABLET PO SCH (07:23)
[2023-01-05 07:37] VITALS: RESP 18
[2023-01-05] MEDS: ASPIRIN 81 MG CHEWABLE TABLETS PO SCH (09:41)
[2023-01-05] MEDS: PANTOPRAZOLE 20 MG TABLET PO SCH (09:42)
[2023-01-05] MEDS: ZINC SULFATE 220 MG CAPSULE (FP) PO SCH (09:42)
[2023-01-05] MEDS: LIDOCAINE 5% TOPICAL PATCH TP SCH (09:42)
[2023-01-05] MEDS: PRENATAL VITAMINS W/ FOLIC ACID TABLET (FP) PO SCH (09:42)
[2023-01-05] MEDS: NICOTINE 21 MG/24 HOURS TOPICAL PATCH TD SCH (09:42)
[2023-01-05] MEDS: LISINOPRIL 20 MG TABLET PO SCH (09:42)
[2023-01-05] MEDS: ASCORBIC ACID 500 MG TABLET (FP) PO SCH (09:43)
[2023-01-05] MEDS: MELATONIN 5 MG TABLETS PO SCH (21:12)
[2023-01-05] MEDS: cloNIDine HCL 0.1 MG TABLET PO PRN (21:12)
[2023-01-05] MEDS: THIAMINE HCL 100 MG TABLET (FP) PO SCH (21:12)
[2023-01-05] MEDS: LIDOCAINE PATCH REMOVAL MC SCH (21:22)
[2023-01-06] MEDS: methaDONE 40 MG, methaDONE 30 MG PO SCH (06:31)
[2023-01-06 07:24] VITALS: TEMP 96.9
[2023-01-06] MEDS: ELVITEG/COB/EMTRI/TENOF (GENVOYA) TABLET PO SCH (08:25)
[2023-01-06] MEDS: ASPIRIN 81 MG CHEWABLE TABLETS PO SCH (09:01)
[2023-01-06] MEDS: PRENATAL VITAMINS W/ FOLIC ACID TABLET (FP) PO SCH (09:01)
[2023-01-06] MEDS: PANTOPRAZOLE 20 MG TABLET PO SCH (09:02)
[2023-01-06] MEDS: LISINOPRIL 20 MG TABLET PO SCH (09:02)
[2023-01-06] MEDS: LIDOCAINE 5% TOPICAL PATCH TP SCH (09:02)
[2023-01-06] MEDS: NICOTINE 21 MG/24 HOURS TOPICAL PATCH TD SCH (09:02)
[2023-01-06] MEDS: ZINC SULFATE 220 MG CAPSULE (FP) PO SCH (09:02)
[2023-01-06] MEDS: ASCORBIC ACID 500 MG TABLET (FP) PO SCH (09:02)
[2023-01-06 10:43] VITALS: BP 146/91; PULSE 72
== END 2023-01-06 09:22 | disposition home or self-care (01) | DRG 772 ==
LOC: YASAS 11:59 → Y3E 13:21
PROVIDERS: ADMIT Allergy & Immunology; ATTEND Psychiatry & Neurology Pain Medicine
PROC: HZ42ZZZ Group Counseling for Substance Abuse Treatment, Cognitive-Behavioral (ICD-10-PCS; principal; 2022-12-23)
DX: F14.20 Cocaine dependence, uncomplicated (principal); F11.20 Opioid dependence, uncomplicated; F17.210 Nicotine dependence, cigarettes, uncomplicated; B20 Human immunodeficiency virus [HIV] disease; I10 Essential (primary) hypertension; R07.9 Chest pain, unspecified; Z86.718 Personal history of other venous thrombosis and embolism
CPT/HCPCS: 36415; 80053; 81003; 85027; 86780; 87635; 93005; 93010

== ENCOUNTER 2023-01-24 12:17 | Inpatient (IN) | payer OTHER ==
[2023-01-24 14:51] VITALS: BMI 21.6
[2023-01-24] MEDS ORDERED: BENZONATATE 200 MG CAPSULE PO PRN (15:53)
[2023-01-24] MEDS ORDERED: POLYETHYLENE GLYCOL (HEALTHYLAX) 3350 17 GM PACKET PO PRN (15:53)
[2023-01-24] MEDS ORDERED: COLLOIDAL OATMEAL 1 BAR EACH TP PRN (15:53)
[2023-01-24] MEDS ORDERED: MAG HYDROX/AL HYDROX/SIMETH 30 ML UNIT-DOSE CUP PO PRN (15:53)
[2023-01-24] MEDS ORDERED: IBUPROFEN 400 MG TABLET (FP) PO PRN (15:53)
[2023-01-24] MEDS ORDERED: ACETAMINOPHEN 325 MG TABLET (FP) PO PRN (15:53)
[2023-01-24] MEDS ORDERED: LOPERAMIDE HCL 2 MG CAPSULE PO PRN (15:53)
[2023-01-24] MEDS ORDERED: NALOXONE HCL 0.4 MG/ML VIAL IM PRN (15:53)
[2023-01-24] MEDS ORDERED: MAGNESIUM HYDROX 2400MG/30ML ORAL SUSPENSION 30 ML CUP PO PRN (15:53)
[2023-01-24] MEDS ORDERED: guaiFENesin 600 MG TABLET.ER (FP) PO PRN (15:53)
[2023-01-24] MEDS ORDERED: BENZOCAINE/MENTHOL (CHLORASEPTIC ) LOZENGE MM PRN (15:53)
[2023-01-24] MEDS ORDERED: NALOXONE HCL (KLOXXADO) 8 MG SPRAY NS PRN (15:53)
[2023-01-24] MEDS ORDERED: IBUPROFEN 600 MG TABLET (FP) PO PRN (15:53)
[2023-01-24] MEDS ORDERED: AMMONIUM LACTATE 12% LOTION 225 GM BOTTLE TP PRN (15:53)
[2023-01-24] MEDS ORDERED: amLODIPine BESYLATE 5 MG TABLET (FP) ONE (17:31)
[2023-01-24] MEDS: amLODIPine BESYLATE 10 MG TABLET (FP) PO SCH (17:33)
[2023-01-24] MEDS: NICOTINE 14 MG/24 HOURS TOPICAL PATCH TD SCH (18:04)
[2023-01-24] MEDS: hydrOXYzine PAMOATE 25 MG CAPSULE (FP) PO PRN (18:05)
[2023-01-24] MEDS: LIDOCAINE 5% TOPICAL PATCH TP SCH (18:05)
[2023-01-24] MEDS: PRENATAL VITAMINS W/ FOLIC ACID TABLET (FP) PO SCH (18:06)
[2023-01-24] MEDS: THIAMINE HCL 100 MG TABLET (FP) PO SCH (21:20)
[2023-01-24] MEDS: LIDOCAINE PATCH REMOVAL MC SCH (21:20)
[2023-01-24] MEDS: MELATONIN 5 MG TABLETS PO SCH (21:20)
[2023-01-25] MEDS: hydrOXYzine PAMOATE 25 MG CAPSULE (FP) PO PRN (06:34)
[2023-01-25] MEDS ORDERED: methaDONE HCL 10 MG TABLET PO SCH (08:00)
[2023-01-25] MEDS: amLODIPine BESYLATE 10 MG TABLET (FP) PO SCH (09:03)
[2023-01-25] MEDS: methaDONE 40 MG, methaDONE 30 MG PO SCH (09:03)
[2023-01-25] MEDS: LIDOCAINE 5% TOPICAL PATCH TP SCH (09:04)
[2023-01-25] MEDS: NICOTINE 14 MG/24 HOURS TOPICAL PATCH TD SCH (09:04)
[2023-01-25] MEDS: PRENATAL VITAMINS W/ FOLIC ACID TABLET (FP) PO SCH (09:04)
[2023-01-25] MEDS: BUDESONIDE/FORMETEROL FUMARATE 160/4.5 mcg INHALER IH SCH (09:04)
[2023-01-25] MEDS ORDERED: LISINOPRIL 20 MG TABLET PO SCH (10:00)
[2023-01-25] MEDS: ELVITEG/COB/EMTRI/TENOF (GENVOYA) TABLET PO SCH (10:10)
[2023-01-25 11:48] LABS: PH,URINE 5.5 (5.0-8.0); URINE APPEARANCE CLEAR; URINE BILIRUBIN NEGATIVE (NEGATIVE); URINE COLOR YELLOW; URINE GLUCOSE (UA) NEGATIVE (NEGATIVE); URINE KETONE NEGATIVE (NEGATIVE); URINE LEUK ESTERASE NEGATIVE (NEGATIVE); URINE NITRITE NEGATIVE (NEGATIVE); URINE PROTEIN NEGATIVE (NEGATIVE)
[2023-01-25 11:51] LABS: EPI CELLS 2 /uL (0-25.1); HYALINE CASTS 0 /uL (0-3.1); URINE BACTERIA 15 /uL (0-1359); URINE RBC 1 /uL (0-23.9); URINE WBC 2 /uL (0-25.8)
[2023-01-25 13:56] LABS: HEMATOCRIT 37.6 % (35.4-49); MCH 27.5 pg (25.7-33.7); MCHC 31.8 g/dl (32.0-35.9); MEAN CELL VOLUME 86.4 fl (80-96); MEAN PLT VOLUME 7.1 fl (7.5-11.1); PLATELET COUNT 197 10^3/uL (134-434); RBC 4.35 M/mm3 (4.00-5.60); RDW 16.6 % (11.9-15.9)
[2023-01-25 13:59] LABS: WHITE BLOOD COUNT 1.7 K/mm3 (4.0-10.0)
[2023-01-25 14:18] LABS: POTASSIUM 3.9 mmol/L (3.5-5.1)
[2023-01-25 14:36] LABS: ALBUMIN 3.2 g/dl (3.4-5.0); BLOOD UREA NITROGEN 13.2 mg/dL (7-18); CALCIUM 8.4 mg/dL (8.5-10.1)
[2023-01-25 14:40] LABS: BILIRUBIN,TOTAL 0.6 mg/dL (0.2-1)
[2023-01-25 14:41] LABS: CREATININE 0.8 mg/dL (0.55-1.3); TOT PROT 7.1 g/dl (6.4-8.2)
[2023-01-25] MEDS: LISINOPRIL 10 MG TABLET PO SCH (16:42)
[2023-01-25] MEDS: MELATONIN 5 MG TABLETS PO SCH (21:21)
[2023-01-25] MEDS: LIDOCAINE PATCH REMOVAL MC SCH (21:21)
[2023-01-25] MEDS: THIAMINE HCL 100 MG TABLET (FP) PO SCH (21:21)
[2023-01-26] MEDS: methaDONE 40 MG, methaDONE 30 MG PO SCH (05:59)
[2023-01-26] MEDS: ELVITEG/COB/EMTRI/TENOF (GENVOYA) TABLET PO SCH (07:05)
[2023-01-26] MEDS: BUDESONIDE/FORMETEROL FUMARATE 160/4.5 mcg INHALER IH SCH (09:15)
[2023-01-26] MEDS: PRENATAL VITAMINS W/ FOLIC ACID TABLET (FP) PO SCH (09:15)
[2023-01-26] MEDS: NICOTINE 14 MG/24 HOURS TOPICAL PATCH TD SCH (09:16)
[2023-01-26] MEDS: LISINOPRIL 10 MG TABLET PO SCH (09:16)
[2023-01-26] MEDS: amLODIPine BESYLATE 10 MG TABLET (FP) PO SCH (09:16)
[2023-01-26] MEDS: LIDOCAINE 5% TOPICAL PATCH TP SCH (09:16)
[2023-01-26] MEDS: MELATONIN 5 MG TABLETS PO SCH (21:15)
[2023-01-26] MEDS: THIAMINE HCL 100 MG TABLET (FP) PO SCH (21:15)
[2023-01-26] MEDS: LIDOCAINE PATCH REMOVAL MC SCH (21:16)
[2023-01-27] MEDS: methaDONE 40 MG, methaDONE 30 MG PO SCH (06:39)
[2023-01-27 06:57] VITALS: TEMP 98
[2023-01-27 08:56] VITALS: BP 138/89; PULSE 74; RESP 17
[2023-01-27] MEDS: LISINOPRIL 10 MG TABLET PO SCH (09:06)
[2023-01-27] MEDS: BUDESONIDE/FORMETEROL FUMARATE 160/4.5 mcg INHALER IH SCH (09:06)
[2023-01-27] MEDS: PRENATAL VITAMINS W/ FOLIC ACID TABLET (FP) PO SCH (09:06)
[2023-01-27] MEDS: NICOTINE 14 MG/24 HOURS TOPICAL PATCH TD SCH (09:06)
[2023-01-27] MEDS: LIDOCAINE 5% TOPICAL PATCH TP SCH (09:06)
[2023-01-27] MEDS: amLODIPine BESYLATE 10 MG TABLET (FP) PO SCH (09:06)
== END 2023-01-27 09:15 | disposition home or self-care (01) | DRG 772 ==
LOC: YASAS 12:17 → Y3W 17:27
PROVIDERS: ADMIT Allergy & Immunology; ATTEND Psychiatry & Neurology Pain Medicine
PROC: HZ42ZZZ Group Counseling for Substance Abuse Treatment, Cognitive-Behavioral (ICD-10-PCS; principal; 2023-01-24)
DX: F14.20 Cocaine dependence, uncomplicated (principal); F11.20 Opioid dependence, uncomplicated; F17.210 Nicotine dependence, cigarettes, uncomplicated; B20 Human immunodeficiency virus [HIV] disease; D72.819 Decreased white blood cell count, unspecified; I10 Essential (primary) hypertension; R63.4 Abnormal weight loss; Z68.1 Body mass index [BMI] 19.9 or less, adult; Z28.310 Unvaccinated for COVID-19; Z28.9 Immunization not carried out for unspecified reason
CPT/HCPCS: 36415; 80053; 81003; 85027; 86780; 86803; 87522; 87635

== ENCOUNTER 2023-05-12 17:02 | Inpatient (IN) | payer OTHER ==
[2023-05-12 18:49] VITALS: BMI 21.4
[2023-05-12] MEDS ORDERED: NALOXONE HCL (KLOXXADO) 8 MG SPRAY NS PRN (20:08)
[2023-05-12] MEDS ORDERED: IBUPROFEN 400 MG TABLET (FP) PO PRN (20:08)
[2023-05-12] MEDS ORDERED: guaiFENesin 600 MG TABLET.ER (FP) PO PRN (20:08)
[2023-05-12] MEDS ORDERED: MAGNESIUM HYDROX 2400MG/30ML ORAL SUSPENSION 30 ML CUP PO PRN (20:08)
[2023-05-12] MEDS ORDERED: MAG HYDROX/AL HYDROX/SIMETH 30 ML UNIT-DOSE CUP PO PRN (20:08)
[2023-05-12] MEDS ORDERED: POLYETHYLENE GLYCOL (HEALTHYLAX) 3350 17 GM PACKET PO PRN (20:08)
[2023-05-12] MEDS ORDERED: NALOXONE HCL 0.4 MG/ML VIAL IM PRN (20:08)
[2023-05-12] MEDS ORDERED: BENZOCAINE/MENTHOL (CHLORASEPTIC ) LOZENGE MM PRN (20:08)
[2023-05-12] MEDS ORDERED: BENZONATATE 200 MG CAPSULE PO PRN (20:08)
[2023-05-12] MEDS ORDERED: COLLOIDAL OATMEAL 1 BAR EACH TP PRN (20:08)
[2023-05-12] MEDS ORDERED: LOPERAMIDE HCL 2 MG CAPSULE PO PRN (20:08)
[2023-05-12] MEDS ORDERED: cloNIDine HCL 0.1 MG TABLET PO ONE (20:31)
[2023-05-12] MEDS ORDERED: cloNIDine HCL 0.1 MG TABLET ONE (20:49)
[2023-05-12] MEDS ORDERED: ACETAMINOPHEN 325 MG TABLET (FP) ONE (20:50)
[2023-05-12] MEDS: ACETAMINOPHEN 325 MG TABLET (FP) PO PRN (20:52)
[2023-05-13] MEDS: THIAMINE HCL 100 MG TABLET (FP) PO SCH ×2 (01:08→21:13)
[2023-05-13] MEDS: MELATONIN 5 MG TABLETS PO SCH ×2 (01:08→21:13)
[2023-05-13] MEDS: hydrOXYzine PAMOATE 25 MG CAPSULE (FP) PO PRN (06:25)
[2023-05-13] MEDS: methaDONE 40 MG, methaDONE 30 MG PO SCH (07:47)
[2023-05-13] MEDS: PRENATAL VITAMINS W/ FOLIC ACID TABLET (FP) PO SCH (10:26)
[2023-05-13 11:11] LABS: PH,URINE 5.5 (5.0-8.0); URINE APPEARANCE CLEAR; URINE BILIRUBIN NEGATIVE (NEGATIVE); URINE COLOR YELLOW; URINE GLUCOSE (UA) NEGATIVE (NEGATIVE); URINE KETONE TRACE (NEGATIVE); URINE LEUK ESTERASE NEGATIVE (NEGATIVE); URINE NITRITE NEGATIVE (NEGATIVE); URINE PROTEIN NEGATIVE (NEGATIVE)
[2023-05-13] MEDS: ACETAMINOPHEN 325 MG TABLET (FP) PO PRN (16:17)
[2023-05-14] MEDS: methaDONE 40 MG, methaDONE 30 MG PO SCH (06:34)
[2023-05-14] MEDS: hydrOXYzine PAMOATE 25 MG CAPSULE (FP) PO PRN (06:34)
[2023-05-14] MEDS: PRENATAL VITAMINS W/ FOLIC ACID TABLET (FP) PO SCH (09:57)
[2023-05-14] MEDS: IBUPROFEN 600 MG TABLET (FP) PO PRN (09:57)
[2023-05-14 17:59] LABS: HEMATOCRIT 30.5 % (35.4-49); HEMOGLOBIN 10.3 GM/dL (11.7-16.9); MCH 28.7 pg (25.7-33.7); MCHC 33.6 g/dl (32.0-35.9); MEAN CELL VOLUME 85.2 fl (80-96); MEAN PLT VOLUME 6.1 fl (7.5-11.1); PLATELET COUNT 255 10^3/uL (134-434); RBC 3.58 M/mm3 (4.00-5.60); RDW 13.5 % (11.9-15.9); WHITE BLOOD COUNT 2.9 K/mm3 (4.0-10.0)
[2023-05-14 18:04] LABS: CHLORIDE 104 mmol/L (98-107); POTASSIUM 4.6 mmol/L (3.5-5.1); SODIUM 140 mmol/L (136-145)
[2023-05-14 18:08] LABS: ALBUMIN 2.8 g/dl (3.4-5.0); CALCIUM 8.5 mg/dL (8.5-10.1)
[2023-05-14 18:09] LABS: ANION GAP 6 mmol/L (4-13); BLOOD UREA NITROGEN 18.9 mg/dL (7-18); CO2 30 mmol/L (21-32); GLUCOSE,RANDOM 91 mg/dL (74-106)
[2023-05-14 18:11] LABS: CREATININE 0.8 mg/dL (0.55-1.3); SGOT/AST 31 U/L (15-37); SGPT/ALT 26 U/L (13-61)
[2023-05-14 18:13] LABS: BILIRUBIN,TOTAL 0.3 mg/dL (0.2-1)
[2023-05-14 18:14] LABS: ALK PHOS 85 U/L (45-117)
[2023-05-14 18:39] LABS: SYPHILIS W/ RPR CONF NON-REACTIVE (NONREACTIVE)
[2023-05-14] MEDS: MELATONIN 5 MG TABLETS PO SCH (21:32)
[2023-05-14] MEDS: THIAMINE HCL 100 MG TABLET (FP) PO SCH (21:32)
[2023-05-15] MEDS: methaDONE 40 MG, methaDONE 30 MG PO SCH (06:43)
[2023-05-15] MEDS: hydrOXYzine PAMOATE 25 MG CAPSULE (FP) PO PRN (06:44)
[2023-05-15] MEDS: IBUPROFEN 600 MG TABLET (FP) PO PRN (06:44)
[2023-05-15] MEDS ORDERED: cloNIDine HCL 0.1 MG TABLET PO ONE (07:15)
[2023-05-15] MEDS: amLODIPine BESYLATE 10 MG TABLET (FP) PO SCH (10:29)
[2023-05-15] MEDS: PRENATAL VITAMINS W/ FOLIC ACID TABLET (FP) PO SCH (10:29)
[2023-05-15] MEDS: LISINOPRIL 10 MG TABLET PO SCH (10:29)
[2023-05-15] MEDS: ELVITEG/COB/EMTRI/TENOF (GENVOYA) TABLET PO SCH (11:53)
[2023-05-15] MEDS: MELATONIN 5 MG TABLETS PO SCH (21:05)
[2023-05-15] MEDS: ACETAMINOPHEN 325 MG TABLET (FP) PO PRN (21:05)
[2023-05-15] MEDS: THIAMINE HCL 100 MG TABLET (FP) PO SCH (21:05)
[2023-05-16] MEDS: methaDONE 40 MG, methaDONE 30 MG PO SCH (06:29)
[2023-05-16] MEDS: IBUPROFEN 600 MG TABLET (FP) PO PRN (06:31)
[2023-05-16] MEDS: hydrOXYzine PAMOATE 25 MG CAPSULE (FP) PO PRN (06:31)
[2023-05-16] MEDS: ELVITEG/COB/EMTRI/TENOF (GENVOYA) TABLET PO SCH (07:05)
[2023-05-16] MEDS: PRENATAL VITAMINS W/ FOLIC ACID TABLET (FP) PO SCH (09:48)
[2023-05-16] MEDS: amLODIPine BESYLATE 10 MG TABLET (FP) PO SCH (09:49)
[2023-05-16] MEDS: LISINOPRIL 10 MG TABLET PO SCH (09:49)
[2023-05-16] MEDS: BUDESONIDE/FORMETEROL FUMARATE 160/4.5 mcg INHALER IH SCH (09:49)
[2023-05-16] MEDS: THIAMINE HCL 100 MG TABLET (FP) PO SCH (21:10)
[2023-05-16] MEDS: MELATONIN 5 MG TABLETS PO SCH (21:10)
[2023-05-17] MEDS: methaDONE 40 MG, methaDONE 30 MG PO SCH (06:28)
[2023-05-17] MEDS: ACETAMINOPHEN 325 MG TABLET (FP) PO PRN (06:29)
[2023-05-17] MEDS: hydrOXYzine PAMOATE 25 MG CAPSULE (FP) PO PRN (06:29)
[2023-05-17] MEDS: ELVITEG/COB/EMTRI/TENOF (GENVOYA) TABLET PO SCH (07:04)
[2023-05-17] MEDS: PRENATAL VITAMINS W/ FOLIC ACID TABLET (FP) PO SCH (09:53)
[2023-05-17] MEDS: LISINOPRIL 10 MG TABLET PO SCH (09:53)
[2023-05-17] MEDS: BUDESONIDE/FORMETEROL FUMARATE 160/4.5 mcg INHALER IH SCH (09:53)
[2023-05-17] MEDS: amLODIPine BESYLATE 10 MG TABLET (FP) PO SCH (09:54)
[2023-05-17] MEDS: IBUPROFEN 600 MG TABLET (FP) PO PRN (11:47)
[2023-05-17] MEDS: LIDOCAINE 4% PATCH TP SCH (14:39)
[2023-05-17] MEDS: THIAMINE HCL 100 MG TABLET (FP) PO SCH (21:21)
[2023-05-17] MEDS: MELATONIN 5 MG TABLETS PO SCH (21:21)
[2023-05-17] MEDS: LIDOCAINE PATCH REMOVAL MC SCH (21:22)
[2023-05-18] MEDS: methaDONE 40 MG, methaDONE 30 MG PO SCH (06:33)
[2023-05-18] MEDS: ELVITEG/COB/EMTRI/TENOF (GENVOYA) TABLET PO SCH (07:01)
[2023-05-18] MEDS: LIDOCAINE 4% PATCH TP SCH (10:09)
[2023-05-18] MEDS: amLODIPine BESYLATE 10 MG TABLET (FP) PO SCH (10:10)
[2023-05-18] MEDS: PRENATAL VITAMINS W/ FOLIC ACID TABLET (FP) PO SCH (10:10)
[2023-05-18] MEDS: BUDESONIDE/FORMETEROL FUMARATE 160/4.5 mcg INHALER IH SCH (10:10)
[2023-05-18] MEDS: LISINOPRIL 20 MG TABLET PO SCH (10:10)
[2023-05-18] MEDS: ACETAMINOPHEN 325 MG TABLET (FP) PO PRN (20:24)
[2023-05-18] MEDS: MELATONIN 5 MG TABLETS PO SCH (21:10)
[2023-05-18] MEDS: LIDOCAINE PATCH REMOVAL MC SCH (21:10)
[2023-05-18] MEDS: THIAMINE HCL 100 MG TABLET (FP) PO SCH (21:10)
[2023-05-19] MEDS: methaDONE 40 MG, methaDONE 30 MG PO SCH (06:25)
[2023-05-19] MEDS: ELVITEG/COB/EMTRI/TENOF (GENVOYA) TABLET PO SCH (07:02)
[2023-05-19] MEDS: LIDOCAINE 4% PATCH TP SCH (10:12)
[2023-05-19] MEDS: LISINOPRIL 20 MG TABLET PO SCH (10:13)
[2023-05-19] MEDS: BUDESONIDE/FORMETEROL FUMARATE 160/4.5 mcg INHALER IH SCH (10:13)
[2023-05-19] MEDS: amLODIPine BESYLATE 10 MG TABLET (FP) PO SCH (10:13)
[2023-05-19] MEDS: PRENATAL VITAMINS W/ FOLIC ACID TABLET (FP) PO SCH (10:13)
[2023-05-19] MEDS: THIAMINE HCL 100 MG TABLET (FP) PO SCH (21:15)
[2023-05-19] MEDS: LIDOCAINE PATCH REMOVAL MC SCH (21:15)
[2023-05-19] MEDS: MELATONIN 5 MG TABLETS PO SCH (21:15)
[2023-05-20] MEDS ORDERED: methaDONE HCL 10 MG TABLET PO SCH (06:30)
[2023-05-20] MEDS: methaDONE 40 MG, methaDONE 30 MG PO SCH (06:39)
[2023-05-20] MEDS: ELVITEG/COB/EMTRI/TENOF (GENVOYA) TABLET PO SCH (07:06)
[2023-05-20] MEDS: LISINOPRIL 20 MG TABLET PO SCH (10:20)
[2023-05-20] MEDS: BUDESONIDE/FORMETEROL FUMARATE 160/4.5 mcg INHALER IH SCH (10:20)
[2023-05-20] MEDS: PRENATAL VITAMINS W/ FOLIC ACID TABLET (FP) PO SCH (10:21)
[2023-05-20] MEDS: LIDOCAINE 4% PATCH TP SCH (10:21)
[2023-05-20] MEDS: amLODIPine BESYLATE 10 MG TABLET (FP) PO SCH (10:21)
[2023-05-20] MEDS: MELATONIN 5 MG TABLETS PO SCH (21:06)
[2023-05-20] MEDS: LIDOCAINE PATCH REMOVAL MC SCH (21:06)
[2023-05-20] MEDS: THIAMINE HCL 100 MG TABLET (FP) PO SCH (21:06)
[2023-05-21] MEDS: methaDONE 40 MG, methaDONE 30 MG PO SCH (06:28)
[2023-05-21] MEDS: ELVITEG/COB/EMTRI/TENOF (GENVOYA) TABLET PO SCH (07:07)
[2023-05-21] MEDS: amLODIPine BESYLATE 10 MG TABLET (FP) PO SCH (09:53)
[2023-05-21] MEDS: BUDESONIDE/FORMETEROL FUMARATE 160/4.5 mcg INHALER IH SCH (09:53)
[2023-05-21] MEDS: LISINOPRIL 20 MG TABLET PO SCH (09:53)
[2023-05-21] MEDS: PRENATAL VITAMINS W/ FOLIC ACID TABLET (FP) PO SCH (09:53)
[2023-05-21] MEDS: LIDOCAINE 4% PATCH TP SCH (09:54)
[2023-05-21] MEDS: MELATONIN 5 MG TABLETS PO SCH (21:27)
[2023-05-21] MEDS: THIAMINE HCL 100 MG TABLET (FP) PO SCH (21:27)
[2023-05-21] MEDS: LIDOCAINE PATCH REMOVAL MC SCH (21:28)
[2023-05-22] MEDS: methaDONE 40 MG, methaDONE 30 MG PO SCH (06:13)
[2023-05-22] MEDS: ELVITEG/COB/EMTRI/TENOF (GENVOYA) TABLET PO SCH (07:11)
[2023-05-22] MEDS: PRENATAL VITAMINS W/ FOLIC ACID TABLET (FP) PO SCH (10:28)
[2023-05-22] MEDS: BUDESONIDE/FORMETEROL FUMARATE 160/4.5 mcg INHALER IH SCH (10:28)
[2023-05-22] MEDS: LIDOCAINE 4% PATCH TP SCH (10:30)
[2023-05-22] MEDS: amLODIPine BESYLATE 10 MG TABLET (FP) PO SCH (10:30)
[2023-05-22] MEDS: LISINOPRIL 20 MG TABLET PO SCH (10:31)
[2023-05-22] MEDS: ACETAMINOPHEN 325 MG TABLET (FP) PO PRN (10:32)
[2023-05-22] MEDS ORDERED: ASPIRIN 325 MG ENTERIC COATED TABLET (FP) PO ONE (13:51)
[2023-05-22] MEDS: MELATONIN 5 MG TABLETS PO SCH (21:16)
[2023-05-22] MEDS: THIAMINE HCL 100 MG TABLET (FP) PO SCH (21:16)
[2023-05-22] MEDS: IBUPROFEN 600 MG TABLET (FP) PO PRN (21:17)
[2023-05-22] MEDS: LIDOCAINE PATCH REMOVAL MC SCH (21:18)
[2023-05-22] MEDS: ALBUTEROL SO4 HFA INHALER IH PRN (22:57)
[2023-05-23] MEDS: methaDONE 40 MG, methaDONE 30 MG PO SCH (06:26)
[2023-05-23] MEDS: ALBUTEROL SO4 HFA INHALER IH PRN (06:55)
[2023-05-23] MEDS: ELVITEG/COB/EMTRI/TENOF (GENVOYA) TABLET PO SCH (07:39)
[2023-05-23] MEDS: FERROUS SO4 325 MG TABLET (FP) PO SCH (10:38)
[2023-05-23] MEDS: BUDESONIDE/FORMETEROL FUMARATE 160/4.5 mcg INHALER IH SCH (10:38)
[2023-05-23] MEDS: LISINOPRIL 20 MG TABLET PO SCH (10:38)
[2023-05-23] MEDS: ASPIRIN COATED 81 MG TABLET.EC PO SCH (10:38)
[2023-05-23] MEDS: PRENATAL VITAMINS W/ FOLIC ACID TABLET (FP) PO SCH (10:40)
[2023-05-23] MEDS: amLODIPine BESYLATE 10 MG TABLET (FP) PO SCH (10:40)
[2023-05-23] MEDS: LIDOCAINE 4% PATCH TP SCH (10:40)
[2023-05-23] MEDS: MELATONIN 5 MG TABLETS PO SCH (21:11)
[2023-05-23] MEDS: THIAMINE HCL 100 MG TABLET (FP) PO SCH (21:11)
[2023-05-23] MEDS: LIDOCAINE PATCH REMOVAL MC SCH (21:48)
[2023-05-24] MEDS: methaDONE 40 MG, methaDONE 30 MG PO SCH (06:10)
[2023-05-24] MEDS: ELVITEG/COB/EMTRI/TENOF (GENVOYA) TABLET PO SCH (07:02)
[2023-05-24] MEDS: ALBUTEROL SO4 HFA INHALER IH PRN ×2 (09:01→20:29)
[2023-05-24] MEDS: LISINOPRIL 20 MG TABLET PO SCH (10:34)
[2023-05-24] MEDS: ASPIRIN COATED 81 MG TABLET.EC PO SCH (10:34)
[2023-05-24] MEDS: LIDOCAINE 4% PATCH TP SCH (10:34)
[2023-05-24] MEDS: amLODIPine BESYLATE 10 MG TABLET (FP) PO SCH (10:34)
[2023-05-24] MEDS: PRENATAL VITAMINS W/ FOLIC ACID TABLET (FP) PO SCH (10:34)
[2023-05-24] MEDS: FERROUS SO4 325 MG TABLET (FP) PO SCH (10:34)
[2023-05-24] MEDS: BUDESONIDE/FORMETEROL FUMARATE 160/4.5 mcg INHALER IH SCH (10:35)
[2023-05-24] MEDS: MELATONIN 5 MG TABLETS PO SCH (21:02)
[2023-05-24] MEDS: THIAMINE HCL 100 MG TABLET (FP) PO SCH (21:02)
[2023-05-24] MEDS: LIDOCAINE PATCH REMOVAL MC SCH (21:03)
[2023-05-25] MEDS: methaDONE 40 MG, methaDONE 30 MG PO SCH (06:27)
[2023-05-25] MEDS: ELVITEG/COB/EMTRI/TENOF (GENVOYA) TABLET PO SCH (07:02)
[2023-05-25] MEDS: LISINOPRIL 20 MG TABLET PO SCH (09:54)
[2023-05-25] MEDS: LIDOCAINE 4% PATCH TP SCH (09:54)
[2023-05-25] MEDS: ASPIRIN COATED 81 MG TABLET.EC PO SCH (09:54)
[2023-05-25] MEDS: PRENATAL VITAMINS W/ FOLIC ACID TABLET (FP) PO SCH (09:54)
[2023-05-25] MEDS: FERROUS SO4 325 MG TABLET (FP) PO SCH (09:54)
[2023-05-25] MEDS: BUDESONIDE/FORMETEROL FUMARATE 160/4.5 mcg INHALER IH SCH (09:54)
[2023-05-25] MEDS: amLODIPine BESYLATE 10 MG TABLET (FP) PO SCH (09:54)
[2023-05-25] MEDS: MELATONIN 5 MG TABLETS PO SCH (21:22)
[2023-05-25] MEDS: LIDOCAINE PATCH REMOVAL MC SCH (21:22)
[2023-05-25] MEDS: THIAMINE HCL 100 MG TABLET (FP) PO SCH (21:22)
[2023-05-26] MEDS: methaDONE 40 MG, methaDONE 30 MG PO SCH (06:14)
[2023-05-26] MEDS: ELVITEG/COB/EMTRI/TENOF (GENVOYA) TABLET PO SCH (07:04)
[2023-05-26 07:50] VITALS: TEMP 96.9
[2023-05-26 09:04] VITALS: BP 115/63; PULSE 94; RESP 18
[2023-05-26] MEDS: BUDESONIDE/FORMETEROL FUMARATE 160/4.5 mcg INHALER IH SCH (09:11)
[2023-05-26] MEDS: ASPIRIN COATED 81 MG TABLET.EC PO SCH (09:11)
[2023-05-26] MEDS: LIDOCAINE 4% PATCH TP SCH (09:11)
[2023-05-26] MEDS: LISINOPRIL 20 MG TABLET PO SCH (09:11)
[2023-05-26] MEDS: amLODIPine BESYLATE 10 MG TABLET (FP) PO SCH (09:11)
[2023-05-26] MEDS: PRENATAL VITAMINS W/ FOLIC ACID TABLET (FP) PO SCH (09:11)
[2023-05-26] MEDS: FERROUS SO4 325 MG TABLET (FP) PO SCH (09:11)
== END 2023-05-26 09:29 | disposition home or self-care (01) | DRG 772 ==
LOC: YASAS 17:02 → Y3W 23:57
PROVIDERS: ADMIT Allergy & Immunology; ATTEND Psychiatry & Neurology Pain Medicine
PROC: HZ42ZZZ Group Counseling for Substance Abuse Treatment, Cognitive-Behavioral (ICD-10-PCS; principal; 2023-05-12)
DX: F14.20 Cocaine dependence, uncomplicated (principal); F11.20 Opioid dependence, uncomplicated; F17.210 Nicotine dependence, cigarettes, uncomplicated; Z21 Asymptomatic human immunodeficiency virus [HIV] infection status; D64.9 Anemia, unspecified; I10 Essential (primary) hypertension; B18.2 Chronic viral hepatitis C; M54.50 Low back pain, unspecified; G89.29 Other chronic pain; R07.9 Chest pain, unspecified; Z86.39 Personal history of other endocrine, nutritional and metabolic disease; Z87.09 Personal history of other diseases of the respiratory system; Z28.310 Unvaccinated for COVID-19; Z28.9 Immunization not carried out for unspecified reason
CPT/HCPCS: 36415; 71045-TC-FY; 80053; 80307; 81003; 85027; 86780; 86803; 87522; 87635; 93005; 93010

== ENCOUNTER 2023-07-06 10:47 | Inpatient (IN) | payer OTHER ==
[2023-07-06] MEDS ORDERED: BENZOCAINE/MENTHOL (CHLORASEPTIC ) LOZENGE MM PRN (12:29)
[2023-07-06] MEDS ORDERED: BENZONATATE 200 MG CAPSULE PO PRN (12:29)
[2023-07-06] MEDS ORDERED: NALOXONE HCL (KLOXXADO) 8 MG SPRAY NS PRN (12:29)
[2023-07-06] MEDS ORDERED: IBUPROFEN 600 MG TABLET (FP) PO PRN (12:29)
[2023-07-06] MEDS ORDERED: NALOXONE HCL 0.4 MG/ML VIAL IM PRN (12:29)
[2023-07-06] MEDS ORDERED: IBUPROFEN 400 MG TABLET (FP) PO PRN (12:29)
[2023-07-06] MEDS ORDERED: POLYETHYLENE GLYCOL (HEALTHYLAX) 3350 17 GM PACKET PO PRN (12:29)
[2023-07-06] MEDS ORDERED: LOPERAMIDE HCL 2 MG CAPSULE PO PRN (12:29)
[2023-07-06] MEDS ORDERED: MAGNESIUM HYDROX 2400MG/30ML ORAL SUSPENSION 30 ML CUP PO PRN (12:29)
[2023-07-06] MEDS ORDERED: guaiFENesin 600 MG TABLET.ER (FP) PO PRN (12:29)
[2023-07-06] MEDS ORDERED: MAG HYDROX/AL HYDROX/SIMETH 30 ML UNIT-DOSE CUP PO PRN (12:29)
[2023-07-06 14:31] VITALS: BMI 20.2
[2023-07-06] MEDS ORDERED: NICOTINE 7 MG/24 HOURS TOPICAL PATCH TD ONE (14:43)
[2023-07-06] MEDS ORDERED: PRENATAL VITAMINS W/ FOLIC ACID TABLET (FP) PO ONE (14:43)
[2023-07-06] MEDS: PRENATAL VITAMINS W/ FOLIC ACID TABLET (FP) PO SCH (14:47)
[2023-07-06] MEDS: NICOTINE 7 MG/24 HOURS TOPICAL PATCH TD SCH (14:47)
[2023-07-06] MEDS: LIDOCAINE 5% TOPICAL PATCH TP SCH (16:31)
[2023-07-06] MEDS: cloNIDine HCL 0.1 MG TABLET PO ONE (18:11)
[2023-07-06] MEDS: THIAMINE HCL 100 MG TABLET (FP) PO SCH (21:28)
[2023-07-06] MEDS: MELATONIN 5 MG TABLETS PO SCH (21:29)
[2023-07-06] MEDS: LIDOCAINE PATCH REMOVAL MC SCH (21:45)
[2023-07-07] MEDS: ELVITEG/COB/EMTRI/TENOF (GENVOYA) TABLET PO SCH (07:54)
[2023-07-07] MEDS ORDERED: methaDONE HCL 10 MG TABLET PO SCH (09:15)
[2023-07-07] MEDS: methaDONE 40 MG, methaDONE 30 MG PO SCH (09:37)
[2023-07-07] MEDS: LISINOPRIL 20 MG TABLET PO SCH (09:38)
[2023-07-07] MEDS: amLODIPine BESYLATE 10 MG TABLET (FP) PO SCH (09:38)
[2023-07-07] MEDS: ASPIRIN COATED 81 MG TABLET.EC PO SCH (09:38)
[2023-07-07] MEDS: BUDESONIDE/FORMETEROL FUMARATE 160/4.5 mcg INHALER IH SCH (09:39)
[2023-07-07 10:34] LABS: HEMATOCRIT 36.3 % (35.4-49); HEMOGLOBIN 11.9 GM/dL (11.7-16.9); MCH 27.8 pg (25.7-33.7); MCHC 32.6 g/dl (32.0-35.9); MEAN CELL VOLUME 85.2 fl (80-96); MEAN PLT VOLUME 6.8 fl (7.5-11.1); PLATELET COUNT 166 10^3/uL (134-434); RBC 4.26 M/mm3 (4.00-5.60); RDW 14.2 % (11.9-15.9); WHITE BLOOD COUNT 2.1 K/mm3 (4.0-10.0)
[2023-07-07 10:38] LABS: URINE APPEARANCE CLEAR; URINE BILIRUBIN NEGATIVE (NEGATIVE); URINE COLOR YELLOW; URINE GLUCOSE (UA) NEGATIVE (NEGATIVE); URINE KETONE NEGATIVE (NEGATIVE); URINE LEUK ESTERASE NEGATIVE (NEGATIVE); URINE NITRITE NEGATIVE (NEGATIVE); URINE PROTEIN NEGATIVE (NEGATIVE); URINE UROBILINOGEN 0.2 mg/dL (0.2-1.0)
[2023-07-07] MEDS: cloNIDine HCL 0.1 MG TABLET PO SCH (10:57)
[2023-07-07] MEDS: FLU VACCINE (FLULAVAL) PF 60 MCG/0.5 ML SYRINGE 2023-2024 IM ONE (10:59)
[2023-07-07] MEDS: PNEUMOC 20-VAL CONJ-DIP CRM/PF 0.5 ML SYRINGE IM ONE (11:06)
[2023-07-07 11:09] LABS: POTASSIUM 3.9 mmol/L (3.5-5.1)
[2023-07-07 11:37] LABS: CALCIUM 8.4 mg/dL (8.5-10.1)
[2023-07-07 11:38] LABS: BLOOD UREA NITROGEN 13.1 mg/dL (7-18)
[2023-07-07 11:41] LABS: BILIRUBIN,TOTAL 0.3 mg/dL (0.2-1)
[2023-07-07] MEDS: HYDROCHLOROTHIAZIDE 12.5 MG CAPSULE (FP) PO SCH (12:35)
[2023-07-07 13:13] LABS: SYPHILIS W/ RPR CONF NON-REACTIVE (NONREACTIVE)
[2023-07-07] MEDS: BACLOFEN 10 MG TABLET (FP) PO SCH (21:48)
[2023-07-07] MEDS: ACETAMINOPHEN 325 MG TABLET (FP) PO PRN (21:49)
[2023-07-07] MEDS: hydrOXYzine PAMOATE 25 MG CAPSULE (FP) PO PRN (21:50)
[2023-07-10] MEDS: HYDROCHLOROTHIAZIDE 25 MG TABLET (FP) PO SCH (10:32)
[2023-07-13] MEDS: ALBUTEROL SO4 HFA INHALER IH PRN (09:11)
[2023-07-17] MEDS: ONDANSETRON *ODT* 4 MG TABLET SL ONE (18:17)
[2023-07-19 20:56] VITALS: RESP 18
[2023-07-20 07:04] VITALS: TEMP 97.5
[2023-07-20 08:59] VITALS: BP 112/64; PULSE 72
== END 2023-07-20 09:37 | disposition home or self-care (01) | DRG 772 ==
LOC: YASAS 10:47 → Y3W 15:20
PROVIDERS: ADMIT Allergy & Immunology; ATTEND Psychiatry & Neurology Pain Medicine
PROC: HZ42ZZZ Group Counseling for Substance Abuse Treatment, Cognitive-Behavioral (ICD-10-PCS; principal; 2023-07-06)
DX: F14.20 Cocaine dependence, uncomplicated (principal); F11.20 Opioid dependence, uncomplicated; F10.20 Alcohol dependence, uncomplicated; F17.210 Nicotine dependence, cigarettes, uncomplicated; Z21 Asymptomatic human immunodeficiency virus [HIV] infection status; B18.2 Chronic viral hepatitis C; I10 Essential (primary) hypertension; J45.909 Unspecified asthma, uncomplicated; M54.50 Low back pain, unspecified; G89.29 Other chronic pain; Z86.39 Personal history of other endocrine, nutritional and metabolic disease
CPT/HCPCS: 36415; 80053; 81003; 82550; 82553; 84484; 85027; 86780; 86803; 87522; 87635; 87811; 90686; 93005; 93010; G0008; J0475; Q0162

== ENCOUNTER 2023-08-17 11:33 | Inpatient (IN) | payer OTHER ==
[2023-08-17 12:07] VITALS: BMI 20.9
[2023-08-17] MEDS ORDERED: POLYETHYLENE GLYCOL (HEALTHYLAX) 3350 17 GM PACKET PO PRN (13:58)
[2023-08-17] MEDS ORDERED: IBUPROFEN 400 MG TABLET (FP) PO PRN (13:58)
[2023-08-17] MEDS ORDERED: BENZONATATE 200 MG CAPSULE PO PRN (13:58)
[2023-08-17] MEDS ORDERED: MAGNESIUM HYDROX 2400MG/30ML ORAL SUSPENSION 30 ML CUP PO PRN (13:58)
[2023-08-17] MEDS ORDERED: hydrOXYzine PAMOATE 25 MG CAPSULE (FP) PO PRN (13:58)
[2023-08-17] MEDS ORDERED: NALOXONE HCL 0.4 MG/ML VIAL IM PRN (13:58)
[2023-08-17] MEDS ORDERED: LOPERAMIDE HCL 2 MG CAPSULE PO PRN (13:58)
[2023-08-17] MEDS ORDERED: NALOXONE HCL (KLOXXADO) 8 MG SPRAY NS PRN (13:58)
[2023-08-17] MEDS ORDERED: guaiFENesin 600 MG TABLET.ER (FP) PO PRN (13:58)
[2023-08-17] MEDS ORDERED: ACETAMINOPHEN 325 MG TABLET (FP) PO PRN (13:58)
[2023-08-17] MEDS ORDERED: BENZOCAINE/MENTHOL (CHLORASEPTIC ) LOZENGE MM PRN (13:58)
[2023-08-17] MEDS ORDERED: MAG HYDROX/AL HYDROX/SIMETH 30 ML UNIT-DOSE CUP PO PRN (13:58)
[2023-08-17] MEDS ORDERED: ALBUTEROL SO4 HFA INHALER IH PRN (14:04)
[2023-08-17] MEDS ORDERED: TUBERCULIN PPD 5 TU/0.1ML VIAL ID ONE (18:50)
[2023-08-17] MEDS: MELATONIN 5 MG TABLETS PO SCH (21:22)
[2023-08-17] MEDS: THIAMINE HCL 100 MG TABLET (FP) PO SCH (21:22)
[2023-08-17] MEDS: IBUPROFEN 600 MG TABLET (FP) PO PRN (21:23)
[2023-08-18 08:15] LABS: EPI CELLS 5 /uL (0-25.1); HYALINE CASTS 0 /uL (0-3.1); URINE APPEARANCE CLEAR; URINE BACTERIA 6 /uL (0-1359); URINE BILIRUBIN NEGATIVE (NEGATIVE); URINE COLOR YELLOW; URINE GLUCOSE (UA) NEGATIVE (NEGATIVE); URINE KETONE TRACE (NEGATIVE); URINE LEUK ESTERASE NEGATIVE (NEGATIVE); URINE NITRITE NEGATIVE (NEGATIVE); URINE PROTEIN 1+ (NEGATIVE); URINE RBC 9 /uL (0-23.9); URINE WBC 2 /uL (0-25.8)
[2023-08-18] MEDS ORDERED: methaDONE HCL 10 MG TABLET PO SCH (08:30)
[2023-08-18] MEDS: methaDONE 40 MG, methaDONE 30 MG PO ONE (09:20)
[2023-08-18] MEDS: amLODIPine BESYLATE 10 MG TABLET (FP) PO SCH (09:21)
[2023-08-18] MEDS: PRENATAL VITAMINS W/ FOLIC ACID TABLET (FP) PO SCH (09:21)
[2023-08-18] MEDS: NICOTINE 21 MG/24 HOURS TOPICAL PATCH TD SCH (09:23)
[2023-08-18] MEDS ORDERED: LISINOPRIL 20 MG TABLET PO SCH (10:00)
[2023-08-18] MEDS ORDERED: HYDROCHLOROTHIAZIDE 25 MG TABLET (FP) PO SCH (10:00)
[2023-08-18] MEDS: BUDESONIDE/FORMETEROL FUMARATE 160/4.5 mcg INHALER IH SCH (10:42)
[2023-08-18 12:54] LABS: POTASSIUM 4.9 mmol/L (3.5-5.1)
[2023-08-18 13:02] LABS: ALBUMIN 3.4 g/dl (3.4-5.0); BLOOD UREA NITROGEN 19.4 mg/dL (7-18)
[2023-08-18 13:03] LABS: HEMATOCRIT 32.9 % (35.4-49); HEMOGLOBIN 10.7 GM/dL (11.7-16.9); MCH 28.3 pg (25.7-33.7); MCHC 32.4 g/dl (32.0-35.9); MEAN CELL VOLUME 87.4 fl (80-96); MEAN PLT VOLUME 7.2 fl (7.5-11.1); PLATELET COUNT 206 10^3/uL (134-434); RBC 3.76 M/mm3 (4.00-5.60); RDW 16.7 % (11.9-15.9)
[2023-08-18 13:05] LABS: CREATININE 1.2 mg/dL (0.55-1.3)
[2023-08-18 13:06] LABS: BILIRUBIN,TOTAL 0.4 mg/dL (0.2-1); TOT PROT 7.3 g/dl (6.4-8.2)
[2023-08-18 13:09] LABS: WHITE BLOOD COUNT 1.3 K/mm3 (4.0-10.0)
[2023-08-18] MEDS: FERROUS SO4 300 MG/5 ML ORAL SOLN UNIT DOSE CUPS PO SCH (14:13)
[2023-08-18] MEDS: LIDOCAINE 5% TOPICAL PATCH TP SCH (14:13)
[2023-08-18] MEDS: ELVITEG/COB/EMTRI/TENOF (GENVOYA) TABLET PO SCH (21:12)
[2023-08-18] MEDS: LIDOCAINE PATCH REMOVAL MC SCH (21:12)
[2023-08-18 21:47] LABS: SYPHILIS W/ RPR CONF NON-REACTIVE (NONREACTIVE)
[2023-08-19] MEDS: methaDONE 40 MG, methaDONE 30 MG PO SCH (06:23)
[2023-08-19] MEDS: cloNIDine HCL 0.1 MG TABLET PO ONE (06:41)
[2023-08-21] MEDS: LACTULOSE 20 GM/30 ML UDC (FOR ORAL USE ONLY) PO SCH (14:20)
[2023-08-22] MEDS: cloNIDine HCL 0.1 MG TABLET PO PRN (06:12)
[2023-08-22 12:17] LABS: BASO % 1.7 % (0-2.0); EOS % 4.2 % (0-4.5); HEMATOCRIT 35.4 % (35.4-49); HEMOGLOBIN 11.5 GM/dL (11.7-16.9); LYMPH % 17.7 % (8-40); MCH 28.3 pg (25.7-33.7); MCHC 32.6 g/dl (32.0-35.9); MEAN CELL VOLUME 86.9 fl (80-96); MEAN PLT VOLUME 6.6 fl (7.5-11.1); NEUT % 62.4 % (42.8-82.8); PLATELET COUNT 244 10^3/uL (134-434); RBC 4.07 M/mm3 (4.00-5.60); RDW 16.3 % (11.9-15.9)
[2023-08-22 12:18] LABS: POTASSIUM 4.2 mmol/L (3.5-5.1)
[2023-08-22 12:23] LABS: CALCIUM 8.6 mg/dL (8.5-10.1)
[2023-08-22 12:24] LABS: ALBUMIN 3.2 g/dl (3.4-5.0); BLOOD UREA NITROGEN 23.8 mg/dL (7-18)
[2023-08-22 12:28] LABS: BILIRUBIN,TOTAL 0.4 mg/dL (0.2-1)
[2023-08-22 12:29] LABS: TOT PROT 7.3 g/dl (6.4-8.2)
[2023-08-23 06:42] VITALS: RESP 20
[2023-08-24 06:34] VITALS: TEMP 97.1
[2023-08-24 09:20] VITALS: BP 135/81; PULSE 80
== END 2023-08-24 13:40 | disposition home or self-care (01) | DRG 772 ==
LOC: YASAS 11:33 → Y3E 18:21
PROVIDERS: ADMIT Allergy & Immunology; ATTEND Psychiatry & Neurology Pain Medicine
PROC: HZ42ZZZ Group Counseling for Substance Abuse Treatment, Cognitive-Behavioral (ICD-10-PCS; principal; 2023-08-17)
DX: F11.20 Opioid dependence, uncomplicated (principal); F10.20 Alcohol dependence, uncomplicated; F14.20 Cocaine dependence, uncomplicated; F17.210 Nicotine dependence, cigarettes, uncomplicated; F25.1 Schizoaffective disorder, depressive type; B20 Human immunodeficiency virus [HIV] disease; D72.819 Decreased white blood cell count, unspecified; I10 Essential (primary) hypertension; J45.909 Unspecified asthma, uncomplicated; B18.2 Chronic viral hepatitis C; M54.50 Low back pain, unspecified; G89.29 Other chronic pain; Z86.39 Personal history of other endocrine, nutritional and metabolic disease; Z28.310 Unvaccinated for COVID-19; Z28.9 Immunization not carried out for unspecified reason
CPT/HCPCS: 36415; 80053; 80305; 80307; 81003; 82140; 85025; 85027; 86359; 86360; 86780; 86803; 87522; 87635; 93005; 93010

== ENCOUNTER 2023-10-25 17:21 | Inpatient (IN) | payer OTHER ==
[2023-10-25] MEDS ORDERED: PIPERACILLIN/TAZOB 4.5 GM 4.5 GM/100 ML BAG IVPB ONE (18:12)
[2023-10-25] MEDS: PIPERACILLIN/TAZOB 4.5 GM 4.5 GM in DEXTROSE 5%-WATER 100 ML IVPB ONE (18:32)
[2023-10-25] MEDS ORDERED: VANCOMYCIN 1 GRAM (PRE-DOCKED) 1,000 MG/250 ML BAG IVPB ONE (18:42)
[2023-10-25 18:44] LABS: BASO % 0.9 % (0-2.0); EOS % 2.9 % (0-4.5); HEMATOCRIT 27.7 % (35.4-49); HEMOGLOBIN 9.2 GM/dL (11.7-16.9); LYMPH % 16.7 % (8-40); MCH 29.5 pg (25.7-33.7); MCHC 33.2 g/dl (32.0-35.9); MEAN CELL VOLUME 89.1 fl (80-96); MEAN PLT VOLUME 6.2 fl (7.5-11.1); NEUT % 68.5 % (42.8-82.8); PLATELET COUNT 240 10^3/uL (134-434); RBC 3.12 M/mm3 (4.00-5.60); RDW 16.5 % (11.9-15.9); WHITE BLOOD COUNT 3.2 K/mm3 (4.0-10.0)
[2023-10-25 19:06] LABS: CALCIUM 8.8 mg/dL (8.5-10.1); POTASSIUM 3.7 mmol/L (3.5-5.1)
[2023-10-25 19:07] LABS: ALBUMIN 3.1 g/dl (3.4-5.0); BLOOD UREA NITROGEN 18.8 mg/dL (7-18)
[2023-10-25 19:10] LABS: CREATININE 1.1 mg/dL (0.55-1.3)
[2023-10-25 19:11] LABS: BILIRUBIN,TOTAL 0.3 mg/dL (0.2-1)
[2023-10-25 19:12] LABS: TOT PROT 6.5 g/dl (6.4-8.2)
[2023-10-25 19:30] LABS: ERYTHROCYTE SEDIMENTATION RATE 33 mm/hr (0-20)
[2023-10-25] MEDS: VANCOMYCIN 1,000 MG in DEXTROSE 5%-WATER - 250 ML IVPB ONE (19:55)
[2023-10-25] MEDS ORDERED: ACETAMINOPHEN 1000 MG/100 ML BAG IVPB PRN (23:21)
[2023-10-25] MEDS ORDERED: KETOROLAC TROMETHAMINE 30 MG/1 ML VIAL IVPUSH PRN (23:22)
[2023-10-25] MEDS ORDERED: ALBUTEROL SO4 HFA INHALER IH PRN (23:23)
[2023-10-25] MEDS: KETOROLAC TROMETHAMINE 30 MG/1 ML VIAL IVPUSH ONE (23:36)
[2023-10-26] MEDS ORDERED: ACETAMINOPHEN 1000 MG/100 ML BAG IVPB PRN (00:27)
[2023-10-26] MEDS ORDERED: PIPERACILLIN/TAZOB 3.375 GM 3.375 GM in DEXTROSE 5%-WATER - 50 ML IVPB SCH (00:30)
[2023-10-26] MEDS ORDERED: VANCOMYCIN 1,000 MG in DEXTROSE 5%-WATER - 250 ML IVPB SCH (00:30)
[2023-10-26] MEDS ORDERED: methaDONE HCL 40 MG DISPERSABLE TABLET ONE (00:47)
[2023-10-26] MEDS ORDERED: methaDONE HCL 10 MG TABLET ONE (00:48)
[2023-10-26] MEDS: methaDONE 40 MG, methaDONE 30 MG PO ONE (00:51)
[2023-10-26 03:48] VITALS: BMI 20.9
[2023-10-26] MEDS: PIPERACILLIN/TAZOB 3.375 GM 3.375 GM in DEXTROSE 5%-WATER - 50 ML IVPB SCH (04:16)
[2023-10-26] MEDS ORDERED: KETOROLAC TROMETHAMINE 30 MG/1 ML VIAL IVPUSH PRN ×2 (06:00→12:00)
[2023-10-26] MEDS: VANCOMYCIN/WATER FOR INJ (PEG) 1,000 MG/200 ML BAG IVPB SCH ×2 (06:15→17:37)
[2023-10-26 09:49] LABS: HEMATOCRIT 27.1 % (35.4-49); MCH 29.6 pg (25.7-33.7); MCHC 33.3 g/dl (32.0-35.9); MEAN CELL VOLUME 89.1 fl (80-96); MEAN PLT VOLUME 6.4 fl (7.5-11.1); PLATELET COUNT 227 10^3/uL (134-434); RBC 3.04 M/mm3 (4.00-5.60); RDW 16.4 % (11.9-15.9); WHITE BLOOD COUNT 2.5 K/mm3 (4.0-10.0)
[2023-10-26 09:50] LABS: RETICULOCYTES 2.34 % (0.5-1.5)
[2023-10-26 09:55] LABS: POTASSIUM 4.3 mmol/L (3.5-5.1)
[2023-10-26 09:59] LABS: BLOOD UREA NITROGEN 18.3 mg/dL (7-18)
[2023-10-26 10:00] LABS: PHOSPHOROUS 3.6 mg/dL (2.5-4.9)
[2023-10-26 10:01] LABS: CALCIUM 8.3 mg/dL (8.5-10.1); CREATININE 1.2 mg/dL (0.55-1.3)
[2023-10-26 10:02] LABS: ALBUMIN 2.7 g/dl (3.4-5.0); BILIRUBIN,TOTAL 0.4 mg/dL (0.2-1)
[2023-10-26] MEDS: NICOTINE 14 MG/24 HOURS TOPICAL PATCH TD SCH (11:38)
[2023-10-26 14:19] VITALS: RESP 18
[2023-10-26] MEDS: amLODIPine BESYLATE 10 MG TABLET (FP) PO SCH (14:44)
[2023-10-26] MEDS: BUDESONIDE/FORMETEROL FUMARATE 160/4.5 mcg INHALER IH SCH (21:56)
[2023-10-27] MEDS: CEFEPIME 1 GM in DEXTROSE 5%-WATER 100 ML IVPB SCH (01:54)
[2023-10-27] MEDS: POLYETHYLENE GLYCOL (HEALTHYLAX) 3350 17 GM PACKET PO PRN (05:24)
[2023-10-27] MEDS: methaDONE 40 MG, methaDONE 30 MG PO SCH (08:54)
[2023-10-27 09:48] LABS: BASO % 0.7 % (0-2.0); EOS % 3.2 % (0-4.5); HEMATOCRIT 33.2 % (35.4-49); HEMOGLOBIN 10.7 GM/dL (11.7-16.9); LYMPH % 12.1 % (8-40); MCH 29.1 pg (25.7-33.7); MCHC 32.3 g/dl (32.0-35.9); MEAN CELL VOLUME 90.1 fl (80-96); MONO % 6.5 % (3.8-10.2); NEUT % 77.5 % (42.8-82.8); PLATELET COUNT 269 10^3/uL (134-434); RBC 3.69 M/mm3 (4.00-5.60); RDW 16.2 % (11.9-15.9); WHITE BLOOD COUNT 3.2 K/mm3 (4.0-10.0)
[2023-10-27 10:06] LABS: POTASSIUM 3.9 mmol/L (3.5-5.1)
[2023-10-27 10:09] LABS: BLOOD UREA NITROGEN 13.8 mg/dL (7-18); CALCIUM 8.8 mg/dL (8.5-10.1)
[2023-10-27] MEDS: SULFAMETHOXAZOLE/TRIMETHOPRIM 800MG/160MG D.S. TABLET PO SCH (10:13)
[2023-10-27] MEDS: ASPIRIN COATED 81 MG TABLET.EC PO SCH (10:13)
[2023-10-27] MEDS: LISINOPRIL 20 MG TABLET PO SCH (10:13)
[2023-10-27] MEDS: MULTIVITAMINS (DAILY MVI) TABLET (FP) PO SCH (10:13)
[2023-10-27] MEDS: KETOROLAC TROMETHAMINE 15 MG/ML VIAL IVPUSH PRN (10:14)
[2023-10-27] MEDS: ELVITEG/COB/EMTRI/TENOF (GENVOYA) TABLET PO SCH (10:15)
[2023-10-27] MEDS: POLYETHYLENE GLYCOL (HEALTHYLAX) 3350 17 GM PACKET PO SCH (15:11)
[2023-10-27] MEDS: CEPHALEXIN MONOHYDRATE 500 MG CAPSULE (UD) PO SCH (18:48)
[2023-10-27] MEDS: SENNOSIDES 8.8 MG/5 ML SYRUP PO SCH (21:40)
[2023-10-28 09:58] LABS: HEMATOCRIT 31.5 % (35.4-49); HEMOGLOBIN 10.3 GM/dL (11.7-16.9); MCH 29.2 pg (25.7-33.7); MCHC 32.7 g/dl (32.0-35.9); MEAN CELL VOLUME 89.3 fl (80-96); MEAN PLT VOLUME 6.2 fl (7.5-11.1); PLATELET COUNT 253 10^3/uL (134-434); RBC 3.53 M/mm3 (4.00-5.60); RDW 15.7 % (11.9-15.9); WHITE BLOOD COUNT 2.2 K/mm3 (4.0-10.0)
[2023-10-28 10:00] LABS: POTASSIUM 4.2 mmol/L (3.5-5.1)
[2023-10-28 10:10] VITALS: BP 157/94; PULSE 72; TEMP 98.4
[2023-10-28 10:11] LABS: CALCIUM 8.5 mg/dL (8.5-10.1)
[2023-10-28 23:06] LABS: HCV RNA GENOTYPE 1a (.)
== END 2023-10-28 13:36 | disposition other institution (70) | DRG 894 ==
LOC: JER 17:21 → JERBED 20:58 → J5S 10-26 02:49
PROVIDERS: ADMIT Student in an Organized Health Care Education/Training Program; ATTEND Internal Medicine
DX: L03.114 Cellulitis of left upper limb (principal); B20 Human immunodeficiency virus [HIV] disease; F11.20 Opioid dependence, uncomplicated; I10 Essential (primary) hypertension; B19.20 Unspecified viral hepatitis C without hepatic coma; F19.90 Other psychoactive substance use, unspecified, uncomplicated; J45.909 Unspecified asthma, uncomplicated
CPT/HCPCS: 36415; 70450-TC; 70486-TC; 71046-TC-FY; 72128-TC; 73130-TC-LT-FY; 73201-TC-RT; 80048; 80053; 82728; 83010; 83540; 83550; 83615; 83735; 84100; 85025; 85027; 85045; 85651; 86140; 86359; 86360; 87040; 87081; 87522; 87536; 87902; 93005; 93010; 93306-TC; 93971-TC; 99285-25; G0480; Q9967

== ENCOUNTER 2023-10-28 13:56 | Inpatient (IN) | payer OTHER ==
[2023-10-28 14:11] VITALS: BMI 19.8
[2023-10-28] MEDS ORDERED: LOPERAMIDE HCL 2 MG CAPSULE PO PRN (15:43)
[2023-10-28] MEDS ORDERED: IBUPROFEN 600 MG TABLET (FP) PO PRN (15:43)
[2023-10-28] MEDS ORDERED: IBUPROFEN 400 MG TABLET (FP) PO PRN (15:43)
[2023-10-28] MEDS ORDERED: MAG HYDROX/AL HYDROX/SIMETH 30 ML UNIT-DOSE CUP PO PRN (15:43)
[2023-10-28] MEDS ORDERED: guaiFENesin 600 MG TABLET.ER (FP) PO PRN (15:43)
[2023-10-28] MEDS ORDERED: BENZOCAINE/MENTHOL (CHLORASEPTIC ) LOZENGE MM PRN (15:43)
[2023-10-28] MEDS ORDERED: MAGNESIUM HYDROX 2400MG/30ML ORAL SUSPENSION 30 ML CUP PO PRN (15:43)
[2023-10-28] MEDS ORDERED: POLYETHYLENE GLYCOL (HEALTHYLAX) 3350 17 GM PACKET PO PRN (15:43)
[2023-10-28] MEDS ORDERED: hydrOXYzine PAMOATE 25 MG CAPSULE (FP) PO PRN (15:43)
[2023-10-28] MEDS ORDERED: ACETAMINOPHEN 325 MG TABLET (FP) PO PRN (15:43)
[2023-10-28] MEDS ORDERED: NALOXONE HCL (KLOXXADO) 8 MG SPRAY NS PRN (15:43)
[2023-10-28] MEDS ORDERED: BENZONATATE 200 MG CAPSULE PO PRN (15:43)
[2023-10-28] MEDS ORDERED: NALOXONE HCL 0.4 MG/ML VIAL IM PRN (15:43)
[2023-10-28] MEDS ORDERED: ALBUTEROL SO4 HFA INHALER IH PRN (15:49)
[2023-10-28] MEDS ORDERED: SENNOSIDES 8.6MG TABLET (FP) PO PRN (15:49)
[2023-10-28 17:40] LABS: URINE APPEARANCE CLEAR; URINE BILIRUBIN NEGATIVE (NEGATIVE); URINE COLOR DK YELLOW; URINE GLUCOSE (UA) NEGATIVE (NEGATIVE); URINE KETONE NEGATIVE (NEGATIVE); URINE LEUK ESTERASE NEGATIVE (NEGATIVE); URINE NITRITE NEGATIVE (NEGATIVE); URINE PROTEIN TRACE (NEGATIVE)
[2023-10-28] MEDS: CEPHALEXIN MONOHYDRATE 500 MG CAPSULE (UD) PO SCH (18:35)
[2023-10-28] MEDS: BUDESONIDE/FORMETEROL FUMARATE 160/4.5 mcg INHALER IH SCH (22:21)
[2023-10-28] MEDS: THIAMINE 100 MG TABLET PO SCH (22:21)
[2023-10-28] MEDS: MELATONIN 5 MG TABLETS PO SCH (22:22)
[2023-10-29] MEDS: methaDONE 40 MG, methaDONE 30 MG PO SCH (05:46)
[2023-10-29] MEDS: ASPIRIN COATED 81 MG TABLET.EC PO SCH (05:47)
[2023-10-29] MEDS: amLODIPine BESYLATE 10 MG TABLET (FP) PO SCH (05:47)
[2023-10-29] MEDS ORDERED: methaDONE HCL 10 MG TABLET PO SCH (06:00)
[2023-10-29] MEDS: SULFAMETHOXAZOLE/TRIMETHOPRIM 800MG/160MG D.S. TABLET PO SCH (10:25)
[2023-10-29] MEDS: PRENATAL VITAMINS W/ FOLIC ACID TABLET (FP) PO SCH (10:25)
[2023-10-29] MEDS: LISINOPRIL 20 MG TABLET PO SCH (10:25)
[2023-10-29] MEDS: NICOTINE 14 MG/24 HOURS TOPICAL PATCH TD SCH (10:26)
[2023-10-29] MEDS: ELVITEG/COB/EMTRI/TENOF (GENVOYA) TABLET PO SCH (10:52)
[2023-10-29 11:06] LABS: HEMATOCRIT 29.6 % (35.4-49); HEMOGLOBIN 9.9 GM/dL (11.7-16.9); MCH 29.5 pg (25.7-33.7); MCHC 33.3 g/dl (32.0-35.9); MEAN CELL VOLUME 88.4 fl (80-96); MEAN PLT VOLUME 6.1 fl (7.5-11.1); PLATELET COUNT 270 10^3/uL (134-434); RBC 3.34 M/mm3 (4.00-5.60); RDW 16.3 % (11.9-15.9); WHITE BLOOD COUNT 2.5 K/mm3 (4.0-10.0)
[2023-10-29 11:08] LABS: CHLORIDE 109 mmol/L (98-107); POTASSIUM 4.4 mmol/L (3.5-5.1); SODIUM 141 mmol/L (136-145)
[2023-10-29 11:16] LABS: CALCIUM 8.9 mg/dL (8.5-10.1)
[2023-10-29 11:17] LABS: ANION GAP 4 mmol/L (4-13); CO2 29 mmol/L (21-32); GLUCOSE,RANDOM 82 mg/dL (74-106)
[2023-10-29 11:20] LABS: CREATININE 1.2 mg/dL (0.55-1.3); SGOT/AST 47 U/L (15-37); SGPT/ALT 52 U/L (13-61)
[2023-10-29 11:22] LABS: BILIRUBIN,TOTAL 0.4 mg/dL (0.2-1); TOT PROT 7.2 g/dl (6.4-8.2)
[2023-10-29 11:23] LABS: ALK PHOS 83 U/L (45-117)
[2023-10-29 11:24] LABS: ALBUMIN 3.3 g/dl (3.4-5.0)
[2023-10-29 11:35] LABS: SYPHILIS W/ RPR CONF NON-REACTIVE (NONREACTIVE)
[2023-10-29 18:03] VITALS: BP 159/89; PULSE 86; RESP 15; TEMP 98.3
== END 2023-10-29 18:00 | disposition left against medical advice (07) | DRG 770 ==
LOC: YASAS 13:56 → Y3NR 15:12 → Y3E 10-29 14:25
PROVIDERS: ADMIT Allergy & Immunology; ATTEND Psychiatry & Neurology Pain Medicine
DX: F11.20 Opioid dependence, uncomplicated (principal); F10.20 Alcohol dependence, uncomplicated; F14.20 Cocaine dependence, uncomplicated; F17.210 Nicotine dependence, cigarettes, uncomplicated; B20 Human immunodeficiency virus [HIV] disease; Z79.899 Other long term (current) drug therapy; I10 Essential (primary) hypertension; L03.114 Cellulitis of left upper limb; B18.2 Chronic viral hepatitis C; R60.0 Localized edema
CPT/HCPCS: 36415; 80053; 80305; 80307; 81003; 85027; 86780; 86803; 87522; 87811

== ENCOUNTER 2023-11-21 08:26 | Inpatient (IN) | payer OTHER ==
[2023-11-21 08:54] VITALS: BMI 19.9
[2023-11-21] MEDS ORDERED: BENZOCAINE/MENTHOL (CHLORASEPTIC ) LOZENGE MM PRN (09:24)
[2023-11-21] MEDS ORDERED: MAGNESIUM HYDROX 2400MG/30ML ORAL SUSPENSION 30 ML CUP PO PRN (09:24)
[2023-11-21] MEDS ORDERED: LOPERAMIDE HCL 2 MG CAPSULE PO PRN (09:24)
[2023-11-21] MEDS ORDERED: hydrOXYzine PAMOATE 25 MG CAPSULE (FP) PO PRN (09:24)
[2023-11-21] MEDS ORDERED: MAG HYDROX/AL HYDROX/SIMETH 30 ML UNIT-DOSE CUP PO PRN (09:24)
[2023-11-21] MEDS ORDERED: BENZONATATE 200 MG CAPSULE PO PRN (09:24)
[2023-11-21] MEDS ORDERED: NALOXONE (NARCAN) HCL 4 MG/0.1 ML SPRAY NS PRN (09:24)
[2023-11-21] MEDS ORDERED: POLYETHYLENE GLYCOL (HEALTHYLAX) 3350 17 GM PACKET PO PRN (09:24)
[2023-11-21] MEDS ORDERED: NALOXONE HCL 0.4 MG/ML VIAL IM PRN (09:24)
[2023-11-21] MEDS ORDERED: guaiFENesin 600 MG TABLET.ER (FP) PO PRN (09:24)
[2023-11-21] MEDS ORDERED: ALBUTEROL SO4 HFA INHALER IH PRN (09:32)
[2023-11-21] MEDS ORDERED: SENNOSIDES 8.6MG TABLET (FP) PO PRN (09:32)
[2023-11-21] MEDS: VALSARTAN 80 MG TABLET PO SCH (10:06)
[2023-11-21] MEDS: amLODIPine BESYLATE 10 MG TABLET (FP) PO SCH (10:06)
[2023-11-21] MEDS: SULFAMETHOXAZOLE/TRIMETHOPRIM 800MG/160MG D.S. TABLET PO SCH (10:06)
[2023-11-21] MEDS: ASPIRIN COATED 81 MG TABLET.EC PO SCH (10:06)
[2023-11-21] MEDS: BUDESONIDE/FORMETEROL FUMARATE 160/4.5 mcg INHALER IH SCH (10:07)
[2023-11-21] MEDS: NICOTINE 7 MG/24 HOURS TOPICAL PATCH TD SCH (10:10)
[2023-11-21] MEDS: LIDOCAINE 4% PATCH TP SCH (10:11)
[2023-11-21] MEDS: PRENATAL VITAMINS W/ FOLIC ACID TABLET (FP) PO SCH (10:11)
[2023-11-21] MEDS: ELVITEG/COB/EMTRI/TENOF (GENVOYA) TABLET PO SCH (11:25)
[2023-11-21] MEDS: TUBERCULIN PPD 5 TU/0.1ML SYRINGE (IN PATIENT USE ONLY) ID ONE (14:56)
[2023-11-21] MEDS ORDERED: LIDOCAINE PATCH REMOVAL MC SCH (22:00)
[2023-11-21] MEDS: THIAMINE 100 MG TABLET PO SCH (22:18)
[2023-11-21] MEDS: MELATONIN 5 MG TABLETS PO SCH (22:18)
[2023-11-21] MEDS: ACETAMINOPHEN 325 MG TABLET (FP) PO PRN (22:19)
[2023-11-22] MEDS: IBUPROFEN 600 MG TABLET (FP) PO PRN (07:25)
[2023-11-22] MEDS: methaDONE HCL 40 MG DISPERSABLE TABLET PO SCH (10:06)
[2023-11-22 11:37] LABS: PH,URINE 6.5 (5.0-8.0); URINE APPEARANCE CLEAR; URINE BILIRUBIN NEGATIVE (NEGATIVE); URINE COLOR YELLOW; URINE GLUCOSE (UA) NEGATIVE (NEGATIVE); URINE KETONE NEGATIVE (NEGATIVE); URINE LEUK ESTERASE NEGATIVE (NEGATIVE); URINE NITRITE NEGATIVE (NEGATIVE); URINE PROTEIN NEGATIVE (NEGATIVE)
[2023-11-22 11:44] LABS: HEMATOCRIT 32.7 % (35.4-49); HEMOGLOBIN 10.8 GM/dL (11.7-16.9); MCH 28.3 pg (25.7-33.7); MEAN CELL VOLUME 85.8 fl (80-96); MEAN PLT VOLUME 6.7 fl (7.5-11.1); PLATELET COUNT 231 10^3/uL (134-434); RBC 3.82 M/mm3 (4.00-5.60); RDW 14.6 % (11.9-15.9)
[2023-11-22 11:48] LABS: POTASSIUM 4.5 mmol/L (3.5-5.1)
[2023-11-22 11:51] LABS: CALCIUM 8.8 mg/dL (8.5-10.1)
[2023-11-22 11:54] LABS: ALBUMIN 3.2 g/dl (3.4-5.0); BLOOD UREA NITROGEN 15.8 mg/dL (7-18)
[2023-11-22 11:58] LABS: BILIRUBIN,TOTAL 0.4 mg/dL (0.2-1); TOT PROT 7.1 g/dl (6.4-8.2)
[2023-11-22 12:00] LABS: CREATININE 0.9 mg/dL (0.55-1.3)
[2023-11-22 12:03] LABS: WHITE BLOOD COUNT 1.3 K/mm3 (4.0-10.0)
[2023-11-22 12:17] LABS: SYPHILIS W/ RPR CONF NON-REACTIVE (NONREACTIVE)
[2023-11-22 12:24] LABS: ANISOCYTOSIS 0; MACROCYTOSIS 0
[2023-11-22 12:26] LABS: PLATELET ESTIMATE ADEQUATE
[2023-11-22] MEDS: FERROUS SO4 325 MG TABLET (FP) PO SCH (15:10)
[2023-11-24] MEDS: IBUPROFEN 400 MG TABLET (FP) PO PRN (06:05)
[2023-11-24] MEDS: VALSARTAN PO SCH (09:57)
[2023-11-24] MEDS ORDERED: VALSARTAN 80 MG TABLET PO SCH (10:00)
[2023-11-29] MEDS: methaDONE HCL 40 MG DISPERSABLE TABLET PO ONE (11:05)
[2023-11-30] MEDS: methaDONE HCL 40 MG DISPERSABLE TABLET PO SCH (05:49)
[2023-12-02] MEDS: ELVITEG/COB/EMTRI/TENOF (GENVOYA) TABLET PO SCH (06:15)
[2023-12-07 06:58] VITALS: RESP 16; TEMP 98.2
[2023-12-07 08:50] VITALS: BP 125/78; PULSE 71
== END 2023-12-07 10:35 | disposition home or self-care (01) | DRG 772 ==
LOC: YASAS 08:26 → Y3NR 09:45 → Y5N 11-22 11:39
PROVIDERS: ADMIT Allergy & Immunology; ATTEND Psychiatry & Neurology Pain Medicine
PROC: HZ42ZZZ Group Counseling for Substance Abuse Treatment, Cognitive-Behavioral (ICD-10-PCS; principal; 2023-11-21)
DX: F14.20 Cocaine dependence, uncomplicated (principal); F11.20 Opioid dependence, uncomplicated; F10.20 Alcohol dependence, uncomplicated; F17.210 Nicotine dependence, cigarettes, uncomplicated; F25.9 Schizoaffective disorder, unspecified; B20 Human immunodeficiency virus [HIV] disease; D72.819 Decreased white blood cell count, unspecified; I25.10 Atherosclerotic heart disease of native coronary artery without angina pectoris; I10 Essential (primary) hypertension; B18.2 Chronic viral hepatitis C; M54.50 Low back pain, unspecified; G89.29 Other chronic pain; Z79.899 Other long term (current) drug therapy
CPT/HCPCS: 36415; 80053; 80305; 80307; 81003; 85027; 86780; 86803; 87522; 87811; 93005; 93010

== ENCOUNTER 2023-12-27 13:10 | Inpatient (IN) | payer OTHER ==
[2023-12-27 14:21] VITALS: BMI 20.9
[2023-12-27] MEDS ORDERED: P-EPHED 60MG/TRIPROLIDI 2.5MG TABLET PO PRN (16:12)
[2023-12-27] MEDS ORDERED: NALOXONE HCL 0.4 MG/ML VIAL IM PRN (16:12)
[2023-12-27] MEDS ORDERED: DOCUSATE SODIUM 100 MG CAPSULE (FP) PO PRN (16:12)
[2023-12-27] MEDS ORDERED: BENZOCAINE/MENTHOL (CHLORASEPTIC ) LOZENGE MM PRN (16:12)
[2023-12-27] MEDS ORDERED: MAGNESIUM HYDROX 2400MG/30ML ORAL SUSPENSION 30 ML CUP PO PRN (16:12)
[2023-12-27] MEDS ORDERED: LOPERAMIDE HCL 2 MG CAPSULE PO PRN (16:12)
[2023-12-27] MEDS ORDERED: BENZONATATE 200 MG CAPSULE PO PRN (16:12)
[2023-12-27] MEDS ORDERED: guaiFENesin 600 MG TABLET.ER (FP) PO PRN (16:12)
[2023-12-27] MEDS ORDERED: MAG HYDROX/AL HYDROX/SIMETH 30 ML UNIT-DOSE CUP PO PRN (16:12)
[2023-12-27] MEDS ORDERED: NALOXONE (NARCAN) HCL 4 MG/0.1 ML SPRAY NS PRN (16:12)
[2023-12-27] MEDS ORDERED: IBUPROFEN 400 MG TABLET (FP) PO PRN (16:12)
[2023-12-27] MEDS ORDERED: POLYETHYLENE GLYCOL (HEALTHYLAX) 3350 17 GM PACKET PO PRN (16:12)
[2023-12-27] MEDS ORDERED: ALBUTEROL SO4 HFA INHALER IH PRN (16:14)
[2023-12-27] MEDS ORDERED: SENNOSIDES 8.6MG TABLET (FP) PO PRN (16:14)
[2023-12-27] MEDS: VALSARTAN 80 MG TABLET PO SCH (18:27)
[2023-12-27] MEDS: THIAMINE 100 MG TABLET PO SCH (22:54)
[2023-12-27] MEDS: MELATONIN 5 MG TABLETS PO SCH (22:54)
[2023-12-28] MEDS ORDERED: BUDESONIDE/FORMETEROL FUMARATE 160/4.5 mcg INHALER IH PRN (08:02)
[2023-12-28] MEDS: ELVITEG/COB/EMTRI/TENOF (GENVOYA) TABLET PO SCH (08:20)
[2023-12-28] MEDS: PRENATAL VITAMINS W/ FOLIC ACID TABLET (FP) PO SCH (09:18)
[2023-12-28] MEDS: ASPIRIN COATED 81 MG TABLET.EC PO SCH (09:18)
[2023-12-28] MEDS: amLODIPine BESYLATE 10 MG TABLET (FP) PO SCH (09:18)
[2023-12-28] MEDS: methaDONE HCL 40 MG DISPERSABLE TABLET PO ONE (09:18)
[2023-12-28] MEDS: SULFAMETHOXAZOLE/TRIMETHOPRIM 800MG/160MG D.S. TABLET PO SCH (09:18)
[2023-12-28] MEDS: BUDESONIDE/FORMETEROL FUMARATE 160/4.5 mcg INHALER IH SCH (09:22)
[2023-12-28] MEDS ORDERED: ELVITEG/COB/EMTRI/TENOF (GENVOYA) TABLET PO SCH (10:00)
[2023-12-28] MEDS ORDERED: ASPIRIN 81 MG CHEWABLE TABLETS PO SCH (10:00)
[2023-12-28] MEDS ORDERED: MULTIVITAMINS (DAILY MVI) TABLET (FP) PO SCH (10:00)
[2023-12-28] MEDS ORDERED: SULFAMETHOXAZOLE/TRIMETHOPRIM 800MG/160MG D.S. TABLET PO SCH (10:00)
[2023-12-28] MEDS ORDERED: SENNOSIDES 8.6MG TABLET (FP) PO SCH (10:00)
[2023-12-28] MEDS ORDERED: VALSARTAN 80 MG TABLET PO SCH (10:00)
[2023-12-28] MEDS ORDERED: amLODIPine BESYLATE 10 MG TABLET (FP) PO SCH (10:00)
[2023-12-28 11:39] LABS: POTASSIUM 4.4 mmol/L (3.5-5.1)
[2023-12-28 11:44] LABS: HEMATOCRIT 35.1 % (35.4-49); HEMOGLOBIN 11.5 GM/dL (11.7-16.9); MCH 28.2 pg (25.7-33.7); MCHC 32.7 g/dl (32.0-35.9); MEAN CELL VOLUME 86.2 fl (80-96); MEAN PLT VOLUME 6.6 fl (7.5-11.1); PLATELET COUNT 220 10^3/uL (134-434); RBC 4.08 M/mm3 (4.00-5.60); RDW 15.8 % (11.9-15.9); WHITE BLOOD COUNT 2.1 K/mm3 (4.0-10.0)
[2023-12-28 11:46] LABS: ALBUMIN 3.4 g/dl (3.4-5.0); BLOOD UREA NITROGEN 16.7 mg/dL (7-18); CREATININE 1.1 mg/dL (0.55-1.3)
[2023-12-28 11:48] LABS: BILIRUBIN,TOTAL 0.3 mg/dL (0.2-1); TOT PROT 7.3 g/dl (6.4-8.2)
[2023-12-29] MEDS: methaDONE HCL 40 MG DISPERSABLE TABLET PO SCH (06:44)
[2023-12-29 12:29] LABS: PH,URINE 6.5 (5.0-8.0); URINE APPEARANCE CLEAR; URINE BILIRUBIN NEGATIVE (NEGATIVE); URINE COLOR YELLOW; URINE GLUCOSE (UA) NEGATIVE (NEGATIVE); URINE KETONE NEGATIVE (NEGATIVE); URINE LEUK ESTERASE NEGATIVE (NEGATIVE); URINE NITRITE NEGATIVE (NEGATIVE); URINE PROTEIN NEGATIVE (NEGATIVE)
[2024-01-04] MEDS: IBUPROFEN 600 MG TABLET (FP) PO PRN (09:21)
[2024-01-08] MEDS: ACETAMINOPHEN 325 MG TABLET (FP) PO PRN (11:40)
[2024-01-10 06:34] VITALS: TEMP 97.7
[2024-01-10 08:51] VITALS: BP 127/76; PULSE 86; RESP 14
== END 2024-01-10 09:18 | disposition home or self-care (01) | DRG 772 ==
LOC: YASAS 13:10 → Y3NR 17:25 → Y3E 12-28 12:13
PROVIDERS: ADMIT Allergy & Immunology; ATTEND Psychiatry & Neurology Pain Medicine
PROC: HZ42ZZZ Group Counseling for Substance Abuse Treatment, Cognitive-Behavioral (ICD-10-PCS; principal; 2023-12-27)
DX: F14.20 Cocaine dependence, uncomplicated (principal); F11.20 Opioid dependence, uncomplicated; F17.210 Nicotine dependence, cigarettes, uncomplicated; B20 Human immunodeficiency virus [HIV] disease; I25.10 Atherosclerotic heart disease of native coronary artery without angina pectoris; I10 Essential (primary) hypertension; J45.909 Unspecified asthma, uncomplicated; M54.50 Low back pain, unspecified; G89.29 Other chronic pain; Z86.39 Personal history of other endocrine, nutritional and metabolic disease; Z87.01 Personal history of pneumonia (recurrent)
CPT/HCPCS: 36415; 80053; 80305; 80307; 81003; 85027; 87811

== ENCOUNTER 2024-03-01 12:46 | Inpatient (IN) | payer OTHER ==
[2024-03-01 14:16] VITALS: BMI 21.2
[2024-03-01] MEDS ORDERED: SENNOSIDES 8.6MG TABLET (FP) PO PRN (14:23)
[2024-03-01] MEDS ORDERED: ALBUTEROL SO4 HFA INHALER IH PRN (14:23)
[2024-03-01] MEDS ORDERED: NALOXONE (NARCAN) HCL 4 MG/0.1 ML SPRAY NS PRN (14:47)
[2024-03-01] MEDS ORDERED: IBUPROFEN 600 MG TABLET (FP) PO PRN (14:47)
[2024-03-01] MEDS ORDERED: POLYETHYLENE GLYCOL (HEALTHYLAX) 3350 17 GM PACKET PO PRN (14:47)
[2024-03-01] MEDS ORDERED: NALOXONE HCL 0.4 MG/ML VIAL IM PRN (14:47)
[2024-03-01] MEDS ORDERED: MAG HYDROX/AL HYDROX/SIMETH 30 ML UNIT-DOSE CUP PO PRN (14:47)
[2024-03-01] MEDS ORDERED: guaiFENesin 600 MG TABLET.ER (FP) PO PRN (14:47)
[2024-03-01] MEDS ORDERED: LOPERAMIDE HCL 2 MG CAPSULE PO PRN (14:47)
[2024-03-01] MEDS ORDERED: P-EPHED 60MG/TRIPROLIDI 2.5MG TABLET PO PRN (14:47)
[2024-03-01] MEDS ORDERED: ACETAMINOPHEN 325 MG TABLET (FP) PO PRN (14:47)
[2024-03-01] MEDS ORDERED: NICOTINE POLACRILEX 2 MG LOZENGE BC PRN (14:47)
[2024-03-01] MEDS ORDERED: NICOTINE POLACRILEX 2 MG GUM BUC PRN (14:47)
[2024-03-01] MEDS ORDERED: BENZONATATE 200 MG CAPSULE PO PRN (14:47)
[2024-03-01] MEDS ORDERED: IBUPROFEN 400 MG TABLET (FP) PO PRN (14:47)
[2024-03-01] MEDS ORDERED: BENZOCAINE/MENTHOL (CHLORASEPTIC ) LOZENGE MM PRN (14:47)
[2024-03-01] MEDS ORDERED: MAGNESIUM HYDROX 2400MG/30ML ORAL SUSPENSION 30 ML CUP PO PRN (14:47)
[2024-03-01] MEDS: THIAMINE 100 MG TABLET PO SCH (21:59)
[2024-03-01] MEDS: MELATONIN 5 MG TABLETS PO SCH (22:00)
[2024-03-01] MEDS: BUDESONIDE/FORMETEROL FUMARATE 160/4.5 mcg INHALER IH SCH (22:02)
[2024-03-02 02:16] LABS: PH,URINE 5.5 (5.0-8.0); URINE APPEARANCE CLEAR; URINE BILIRUBIN NEGATIVE (NEGATIVE); URINE COLOR YELLOW; URINE GLUCOSE (UA) NEGATIVE (NEGATIVE); URINE KETONE NEGATIVE (NEGATIVE); URINE LEUK ESTERASE NEGATIVE (NEGATIVE); URINE NITRITE NEGATIVE (NEGATIVE); URINE PROTEIN NEGATIVE (NEGATIVE); URINE UROBILINOGEN 0.2 mg/dL (0.2-1.0)
[2024-03-02] MEDS: ELVITEG/COB/EMTRI/TENOF (GENVOYA) TABLET PO SCH (07:28)
[2024-03-02] MEDS: ASPIRIN 81 MG CHEWABLE TABLETS PO SCH (09:47)
[2024-03-02] MEDS: PRENATAL VITAMINS W/ FOLIC ACID TABLET (FP) PO SCH (09:47)
[2024-03-02] MEDS: VALSARTAN 80 MG TABLET PO SCH (09:47)
[2024-03-02] MEDS: amLODIPine BESYLATE 10 MG TABLET (FP) PO SCH (09:47)
[2024-03-02] MEDS: methaDONE HCL 40 MG DISPERSABLE TABLET PO SCH (10:34)
[2024-03-02] MEDS: VALSARTAN 80 MG TABLET PO ONE (15:08)
[2024-03-03] MEDS: cloNIDine HCL 0.1 MG TABLET PO ONE (00:07)
[2024-03-03 06:46] VITALS: RESP 16
[2024-03-03 09:21] VITALS: BP 137/92; PULSE 72; TEMP 97.7
[2024-03-03] MEDS: VALSARTAN 80 MG TABLET PO SCH (09:59)
== END 2024-03-03 14:39 | disposition left against medical advice (07) | DRG 770 ==
LOC: YASAS 12:46 → Y3NR 16:50
PROVIDERS: ADMIT Psychiatry & Neurology Pain Medicine; ATTEND Psychiatry & Neurology Pain Medicine
PROC: HZ42ZZZ Group Counseling for Substance Abuse Treatment, Cognitive-Behavioral (ICD-10-PCS; principal; 2024-03-01)
DX: F10.20 Alcohol dependence, uncomplicated (principal); F14.20 Cocaine dependence, uncomplicated; F11.20 Opioid dependence, uncomplicated; F17.210 Nicotine dependence, cigarettes, uncomplicated; B20 Human immunodeficiency virus [HIV] disease; I25.10 Atherosclerotic heart disease of native coronary artery without angina pectoris; I10 Essential (primary) hypertension; J45.909 Unspecified asthma, uncomplicated; Z79.899 Other long term (current) drug therapy
CPT/HCPCS: 80305; 81003; 87811

== ENCOUNTER 2024-05-17 14:13 | Inpatient (IN) | payer OTHER ==
[2024-05-17 14:52] VITALS: BMI 20.9
[2024-05-17] MEDS ORDERED: NICOTINE POLACRILEX 2 MG GUM BUC PRN (16:42)
[2024-05-17] MEDS ORDERED: NALOXONE (NARCAN) HCL 4 MG/0.1 ML SPRAY NS PRN (16:42)
[2024-05-17] MEDS ORDERED: guaiFENesin 600 MG TABLET.ER (FP) PO PRN (16:42)
[2024-05-17] MEDS ORDERED: MAG HYDROX/AL HYDROX/SIMETH 30 ML UNIT-DOSE CUP PO PRN (16:42)
[2024-05-17] MEDS ORDERED: NICOTINE POLACRILEX 2 MG LOZENGE BC PRN (16:42)
[2024-05-17] MEDS ORDERED: POLYETHYLENE GLYCOL (HEALTHYLAX) 3350 17 GM PACKET PO PRN (16:42)
[2024-05-17] MEDS ORDERED: BENZONATATE 200 MG CAPSULE PO PRN (16:42)
[2024-05-17] MEDS ORDERED: IBUPROFEN 600 MG TABLET (FP) PO PRN (16:42)
[2024-05-17] MEDS ORDERED: LOPERAMIDE HCL 2 MG CAPSULE PO PRN (16:42)
[2024-05-17] MEDS ORDERED: MAGNESIUM HYDROX 2400MG/30ML ORAL SUSPENSION 30 ML CUP PO PRN (16:42)
[2024-05-17] MEDS ORDERED: IBUPROFEN 400 MG TABLET (FP) PO PRN (16:42)
[2024-05-17] MEDS ORDERED: ALBUTEROL SO4 HFA INHALER IH PRN (17:14)
[2024-05-17] MEDS: BUDESONIDE/FORMETEROL FUMARATE 160/4.5 mcg INHALER IH SCH (21:25)
[2024-05-17] MEDS: MELATONIN 5 MG TABLETS PO SCH (21:26)
[2024-05-17] MEDS: THIAMINE 100 MG TABLET PO SCH (21:27)
[2024-05-18] MEDS: ELVITEG/COB/EMTRI/TENOF (GENVOYA) TABLET PO SCH (08:45)
[2024-05-18] MEDS: ASPIRIN 81 MG CHEWABLE TABLETS PO SCH (09:08)
[2024-05-18] MEDS: SULFAMETHOXAZOLE/TRIMETHOPRIM 800MG/160MG D.S. TABLET PO SCH (09:08)
[2024-05-18] MEDS: amLODIPine BESYLATE 10 MG TABLET (FP) PO SCH (09:08)
[2024-05-18] MEDS: methaDONE HCL 40 MG DISPERSABLE TABLET PO SCH (09:08)
[2024-05-18] MEDS: PRENATAL VITAMINS W/ FOLIC ACID TABLET (FP) PO SCH (09:10)
[2024-05-18] MEDS: FLU VACCINE (FLULAVAL) PF 45 MCG/0.5 ML SYRINGE 2024-2025 IM ONE (11:40)
[2024-05-18 12:54] LABS: HEMATOCRIT 33.4 % (35.4-49); HEMOGLOBIN 10.7 GM/dL (11.7-16.9); MCHC 32.1 g/dl (32.0-35.9); MEAN CELL VOLUME 84.3 fl (80-96); MEAN PLT VOLUME 7.3 fl (7.5-11.1); PLATELET COUNT 171 10^3/uL (134-434); RBC 3.97 M/mm3 (4.00-5.60); RDW 15.6 % (11.9-15.9)
[2024-05-18 12:59] LABS: CHLORIDE 110 mmol/L (98-107); POTASSIUM 3.9 mmol/L (3.5-5.1); SODIUM 142 mmol/L (136-145)
[2024-05-18 13:02] LABS: PH,URINE 6.5 (5.0-8.0); URINE APPEARANCE CLEAR; URINE BILIRUBIN NEGATIVE (NEGATIVE); URINE COLOR YELLOW; URINE GLUCOSE (UA) NEGATIVE (NEGATIVE); URINE KETONE NEGATIVE (NEGATIVE); URINE LEUK ESTERASE NEGATIVE (NEGATIVE); URINE NITRITE NEGATIVE (NEGATIVE); URINE PROTEIN TRACE (NEGATIVE)
[2024-05-18 13:09] LABS: ALBUMIN 3.2 g/dl (3.4-5.0); ANION GAP 6 mmol/L (4-13); BLOOD UREA NITROGEN 25.4 mg/dL (7-18); CALCIUM 8.7 mg/dL (8.5-10.1); CO2 26 mmol/L (21-32); GLUCOSE,RANDOM 123 mg/dL (74-106)
[2024-05-18 13:12] LABS: CREATININE 1.2 mg/dL (0.55-1.3); SGOT/AST 44 U/L (15-37); SGPT/ALT 49 U/L (13-61)
[2024-05-18 13:14] LABS: BILIRUBIN,TOTAL 0.3 mg/dL (0.2-1); TOT PROT 7.2 g/dl (6.4-8.2)
[2024-05-18 13:15] LABS: ALK PHOS 94 U/L (45-117)
[2024-05-18 13:18] LABS: WHITE BLOOD COUNT 1.6 K/mm3 (4.0-10.0)
[2024-05-19] MEDS: hydrOXYzine PAMOATE 25 MG CAPSULE (FP) PO ONE ×2 (08:11→08:15)
[2024-05-21] MEDS: BENZOCAINE/MENTHOL (CHLORASEPTIC ) LOZENGE MM PRN (05:53)
[2024-05-21 16:22] VITALS: BP 148/91; PULSE 103; RESP 19
[2024-05-21 16:26] VITALS: TEMP 102.2
[2024-05-21] MEDS ORDERED: OXYMETAZOLINE 0.05% NASAL SOLUTION 15 ML BOTTLE NS PRN (16:28)
[2024-05-21] MEDS ORDERED: BENZONATATE 200 MG CAPSULE PO PRN (16:28)
[2024-05-21] MEDS: ACETAMINOPHEN 325 MG TABLET (FP) PO PRN (16:46)
[2024-05-21] MEDS: AZITHROMYCIN 250 MG TABLET PO ONE (23:05)
[2024-05-22] MEDS ORDERED: AZITHROMYCIN 250 MG TABLET PO SCH (10:00)
== END 2024-05-21 17:17 | disposition short-term general hospital (02) | DRG 772 ==
LOC: YASAS 14:13 → Y3NR 17:09 → Y5N 05-20 11:41
PROVIDERS: ADMIT Allergy & Immunology; ATTEND Psychiatry & Neurology Pain Medicine
PROC: HZ42ZZZ Group Counseling for Substance Abuse Treatment, Cognitive-Behavioral (ICD-10-PCS; principal; 2024-05-17)
DX: F11.20 Opioid dependence, uncomplicated (principal); F10.20 Alcohol dependence, uncomplicated; F14.20 Cocaine dependence, uncomplicated; F17.210 Nicotine dependence, cigarettes, uncomplicated; F25.9 Schizoaffective disorder, unspecified; Z21 Asymptomatic human immunodeficiency virus [HIV] infection status; I25.10 Atherosclerotic heart disease of native coronary artery without angina pectoris; I10 Essential (primary) hypertension; J18.9 Pneumonia, unspecified organism; M54.50 Low back pain, unspecified; G89.29 Other chronic pain
CPT/HCPCS: 36415; 80053; 80305; 80307; 81003; 85027; 86780; 87811; 90656; G0008

== ENCOUNTER 2024-05-21 17:35 | Inpatient (IN) | payer OTHER ==
[2024-05-21] MEDS ORDERED: ACETAMINOPHEN INJECTION 100 ML ONE (18:37)
[2024-05-21] MEDS ORDERED: ALBUTEROL SO4 2.5/IPRATROPIUM 0.5 INH SOL 3 ML VIAL.NEB. NEB ONE (19:02)
[2024-05-21 19:06] LABS: BASO % 0.7 % (0-2.0); EOS % 0.5 % (0-4.5); HEMATOCRIT 39.4 % (35.4-49); HEMOGLOBIN 12.8 GM/dL (11.7-16.9); LYMPH % 5.6 % (8-40); MCH 27.1 pg (25.7-33.7); MCHC 32.6 g/dl (32.0-35.9); MEAN CELL VOLUME 83.1 fl (80-96); MEAN PLT VOLUME 6.8 fl (7.5-11.1); MONO % 4.8 % (3.8-10.2); NEUT % 88.4 % (42.8-82.8); PLATELET COUNT 216 10^3/uL (134-434); RBC 4.73 M/mm3 (4.00-5.60); RDW 15.5 % (11.9-15.9); WHITE BLOOD COUNT 7.1 K/mm3 (4.0-10.0)
[2024-05-21 19:07] LABS: VENOUS BASE EXCESS 1.7 mmol/L (-2-2); VENOUS O2 SATURATION 63.2 % (70-80); VENOUS PCO2 39.2 mmHg (38-52); VENOUS PH 7.437 (7.310-7.410)
[2024-05-21] MEDS: ACETAMINOPHEN 1000 MG/100 ML BAG IVPB ONE (19:07)
[2024-05-21] MEDS: ALBUTEROL SO4 2.5/IPRATROPIUM 0.5 INH SOL 3 ML VIAL.NEB. NEB SCH (19:07)
[2024-05-21] MEDS: SODIUM CHLORIDE 0.9% 500 ML INFUS.BAG IV ONE (19:07)
[2024-05-21 19:40] LABS: POTASSIUM 5.1 mmol/L (3.5-5.1)
[2024-05-21 19:42] LABS: BLOOD UREA NITROGEN 21.6 mg/dL (7-18); CALCIUM 9.4 mg/dL (8.5-10.1)
[2024-05-21 19:45] LABS: CREATININE 1.2 mg/dL (0.55-1.3)
[2024-05-21 19:48] LABS: ALBUMIN 3.9 g/dl (3.4-5.0); BILIRUBIN,TOTAL 0.3 mg/dL (0.2-1); TOT PROT 9.2 g/dl (6.4-8.2)
[2024-05-21] MEDS ORDERED: PIPERACILLIN/TAZOB 3.375 GM 3.375 GM/50 ML BAG IVPB ONE (21:06)
[2024-05-21] MEDS: PIPERACILLIN/TAZOB 3.375 GM 3.375 GM in DEXTROSE 5%-WATER - 50 ML IVPB ONE (21:11)
[2024-05-21] MEDS ORDERED: VANCOMYCIN 1 GM PREMIX (F) 1 GM/200 ML BAG ONE (21:36)
[2024-05-21] MEDS: VANCOMYCIN 1,000 MG in DEXTROSE 5%-WATER - 250 ML IVPB ONE (21:43)
[2024-05-21] MEDS ORDERED: ALBUTEROL SO4 HFA INHALER IH PRN (23:49)
[2024-05-22] MEDS ORDERED: ACETAMINOPHEN 325 MG TABLET (FP) ONE (00:27)
[2024-05-22] MEDS: ACETAMINOPHEN 325 MG TABLET (FP) PO ONE (00:28)
[2024-05-22] MEDS: BUDESONIDE/FORMETEROL FUMARATE 160/4.5 mcg INHALER IH SCH (02:25)
[2024-05-22] MEDS: PIPERACILLIN/TAZOB 4.5 GM 4.5 GM/100 ML BAG IVPB SCH (05:00)
[2024-05-22] MEDS: SODIUM CHLORIDE 1,000 ML IV SCH (05:00)
[2024-05-22] MEDS: ALBUTEROL SO4 2.5/IPRATROPIUM 0.5 INH SOL 3 ML VIAL.NEB. NEB SCH (08:50)
[2024-05-22] MEDS: methaDONE HCL 40 MG DISPERSABLE TABLET PO SCH (08:51)
[2024-05-22] MEDS: ENOXAPARIN NA (PORCINE) 40 MG/0.4 ML DISP.SYRIN SQ SCH (09:27)
[2024-05-22] MEDS: SULFAMETHOXAZOLE/TRIMETHOPRIM 800MG/160MG D.S. TABLET PO SCH (09:27)
[2024-05-22] MEDS: ASPIRIN 81 MG CHEWABLE TABLETS PO SCH (09:27)
[2024-05-22] MEDS: MULTIVITAMINS (DAILY MVI) TABLET (FP) PO SCH (09:27)
[2024-05-22 10:07] LABS: POTASSIUM 4.2 mmol/L (3.5-5.1)
[2024-05-22 10:25] LABS: ALBUMIN 3.3 g/dl (3.4-5.0); CALCIUM 8.8 mg/dL (8.5-10.1)
[2024-05-22 10:26] LABS: BLOOD UREA NITROGEN 20.2 mg/dL (7-18); MAGNESIUM 2.2 mg/dL (1.8-2.4)
[2024-05-22 10:27] LABS: CREATININE 1.2 mg/dL (0.55-1.3)
[2024-05-22 10:29] LABS: BILIRUBIN,TOTAL 0.7 mg/dL (0.2-1); TOT PROT 7.9 g/dl (6.4-8.2)
[2024-05-22 10:37] LABS: HEMATOCRIT 35.9 % (35.4-49); HEMOGLOBIN 11.6 GM/dL (11.7-16.9); MCHC 32.2 g/dl (32.0-35.9); MEAN CELL VOLUME 83.7 fl (80-96); MEAN PLT VOLUME 7.1 fl (7.5-11.1); PLATELET COUNT 198 10^3/uL (134-434); RBC 4.29 M/mm3 (4.00-5.60); RDW 15.8 % (11.9-15.9); WHITE BLOOD COUNT 12.5 K/mm3 (4.0-10.0)
[2024-05-22] MEDS: ELVITEG/COB/EMTRI/TENOF (GENVOYA) TABLET PO SCH (11:19)
[2024-05-22 13:13] LABS: ANISOCYTOSIS 0; HELMET CELLS 0; HOWELL-JOLLY BODIES 0; MACROCYTOSIS 0; OVALOCYTE 0; ROULEAU 0; SICKELED CELLS 0; TARGET CELLS 0; TEAR DROP CELLS 0; TOXIC GRANULATION 0
[2024-05-22] MEDS: PRENATAL VITAMINS W/ FOLIC ACID TABLET (FP) PO SCH (17:52)
[2024-05-22] MEDS: PIPERACILLIN/TAZOB 4.5 GM 4.5 GM in DEXTROSE 5%-WATER 100 ML IVPB SCH (17:56)
[2024-05-22] MEDS: VANCOMYCIN/WATER FOR INJ (PEG) 1,000 MG/200 ML BAG IVPB SCH (18:32)
[2024-05-22] MEDS ORDERED: PIPERACILLIN/TAZOB 3.375 GM 3.375 GM in DEXTROSE 5%-WATER - 50 ML IVPB SCH (23:00)
[2024-05-22] MEDS: amLODIPine BESYLATE 10 MG TABLET (FP) PO SCH (23:16)
[2024-05-22] MEDS: CEFTRIAXONE 2 GM-D5W BAG 2 GM/50 ML BAG IVPB SCH (23:16)
[2024-05-23] MEDS: ALBUTEROL SO4 2.5/IPRATROPIUM 0.5 INH SOL 3 ML VIAL.NEB. NEB ONE (04:48)
[2024-05-23 06:07] VITALS: RESP 18
[2024-05-23 09:39] LABS: BASO % 0.2 % (0-2.0); EOS % 0.4 % (0-4.5); HEMATOCRIT 35.7 % (35.4-49); HEMOGLOBIN 11.6 GM/dL (11.7-16.9); LYMPH % 5.7 % (8-40); MCH 27.3 pg (25.7-33.7); MCHC 32.4 g/dl (32.0-35.9); MEAN CELL VOLUME 84.3 fl (80-96); MEAN PLT VOLUME 7.1 fl (7.5-11.1); MONO % 3.9 % (3.8-10.2); NEUT % 89.8 % (42.8-82.8); PLATELET COUNT 197 10^3/uL (134-434); RBC 4.23 M/mm3 (4.00-5.60); RDW 15.5 % (11.9-15.9); WHITE BLOOD COUNT 7.7 K/mm3 (4.0-10.0)
[2024-05-23 10:20] LABS: ALBUMIN 3.2 g/dl (3.4-5.0)
[2024-05-23 10:21] LABS: BLOOD UREA NITROGEN 25.3 mg/dL (7-18)
[2024-05-23 10:23] LABS: CREATININE 1.2 mg/dL (0.55-1.3)
[2024-05-23 10:25] LABS: BILIRUBIN,TOTAL 0.4 mg/dL (0.2-1); TOT PROT 7.9 g/dl (6.4-8.2)
[2024-05-23 14:49] VITALS: BP 122/76; PULSE 80; TEMP 98.6
== END 2024-05-23 17:15 | disposition short-term general hospital (02) | DRG 139 ==
LOC: JER 17:35 → JERBED 22:22 → J5S 05-22 01:31
PROVIDERS: ADMIT Internal Medicine; ATTEND Internal Medicine
DX: J13 Pneumonia due to Streptococcus pneumoniae (principal); I10 Essential (primary) hypertension; F11.90 Opioid use, unspecified, uncomplicated; R50.9 Fever, unspecified; I25.10 Atherosclerotic heart disease of native coronary artery without angina pectoris; J45.909 Unspecified asthma, uncomplicated; Z21 Asymptomatic human immunodeficiency virus [HIV] infection status; M79.10 Myalgia, unspecified site
CPT/HCPCS: 0241U-QW; 36415; 71045-TC-FY; 71250-TC; 80053; 82803; 83735; 84100; 84484; 85025; 86359; 86360; 87040; 87070; 87081; 87205; 87899; 93005; 93010; 94640; 97116-GP; 97161-GP; 99285-25; J0131

== ENCOUNTER 2024-05-23 17:09 | Inpatient (IN) | payer OTHER ==
[2024-05-23 17:37] VITALS: BMI 21.4
[2024-05-23] MEDS ORDERED: ALBUTEROL SO4 HFA INHALER IH PRN (17:47)
[2024-05-23] MEDS ORDERED: POLYETHYLENE GLYCOL (HEALTHYLAX) 3350 17 GM PACKET PO PRN (17:57)
[2024-05-23] MEDS ORDERED: ACETAMINOPHEN 325 MG TABLET (FP) PO PRN (17:57)
[2024-05-23] MEDS ORDERED: P-EPHED 60MG/TRIPROLIDI 2.5MG TABLET PO PRN (17:57)
[2024-05-23] MEDS ORDERED: METHOCARBAMOL 500 MG TABLET PO PRN (17:57)
[2024-05-23] MEDS ORDERED: LOPERAMIDE HCL 2 MG CAPSULE PO PRN (17:57)
[2024-05-23] MEDS ORDERED: guaiFENesin 600 MG TABLET.ER (FP) PO PRN (17:57)
[2024-05-23] MEDS ORDERED: NICOTINE POLACRILEX 2 MG LOZENGE BC PRN (17:57)
[2024-05-23] MEDS ORDERED: NALOXONE (NARCAN) HCL 4 MG/0.1 ML SPRAY NS PRN (17:57)
[2024-05-23] MEDS ORDERED: NICOTINE POLACRILEX 2 MG GUM BUC PRN (17:57)
[2024-05-23] MEDS ORDERED: IBUPROFEN 400 MG TABLET (FP) PO PRN (17:57)
[2024-05-23] MEDS ORDERED: IBUPROFEN 600 MG TABLET (FP) PO PRN (17:57)
[2024-05-23] MEDS ORDERED: NALOXONE HCL 0.4 MG/ML VIAL IVPUSH PRN (17:57)
[2024-05-23] MEDS ORDERED: BENZOCAINE/MENTHOL (CHLORASEPTIC ) LOZENGE MM PRN (17:57)
[2024-05-23] MEDS: MELATONIN 5 MG TABLETS PO SCH (21:16)
[2024-05-23] MEDS: THIAMINE 100 MG TABLET PO SCH (21:16)
[2024-05-23] MEDS: BUDESONIDE/FORMETEROL FUMARATE 160/4.5 mcg INHALER IH SCH (21:17)
[2024-05-23] MEDS: AMOX TR/POT CLAV 875MG/125MG TABLETS (FP) PO SCH (21:17)
[2024-05-23] MEDS: amLODIPine BESYLATE 10 MG TABLET (FP) PO SCH (21:17)
[2024-05-24] MEDS: methaDONE HCL 40 MG DISPERSABLE TABLET PO SCH (05:48)
[2024-05-24] MEDS: ELVITEG/COB/EMTRI/TENOF (GENVOYA) TABLET PO SCH (07:13)
[2024-05-24] MEDS: PRENATAL VITAMINS W/ FOLIC ACID TABLET (FP) PO SCH (10:01)
[2024-05-24] MEDS: ASPIRIN 81 MG CHEWABLE TABLETS PO SCH (10:01)
[2024-05-24] MEDS: SULFAMETHOXAZOLE/TRIMETHOPRIM 800MG/160MG D.S. TABLET PO SCH (10:01)
[2024-05-25] MEDS: BENZONATATE 200 MG CAPSULE PO PRN (01:35)
[2024-05-27] MEDS ORDERED: guaiFENesin 600 MG TABLET.ER (FP) PO PRN (01:05)
[2024-05-27] MEDS: BENZONATATE 200 MG CAPSULE PO PRN (01:23)
[2024-06-04] MEDS ORDERED: HYDROCORTISONE 0.5% TOPICAL CREAM 30 GM TUBE TP PRN (12:21)
[2024-06-04] MEDS ORDERED: VITAMINS A AND D TOPICAL OINTMENT TP PRN (12:23)
[2024-06-04] MEDS: BACLOFEN 10 MG TABLET (FP) PO SCH (21:23)
[2024-06-07] MEDS: MAGNESIUM HYDROX 2400MG/30ML ORAL SUSPENSION 30 ML CUP PO PRN (10:51)
[2024-06-07] MEDS: HYDROCHLOROTHIAZIDE 12.5 MG CAPSULE (FP) PO SCH (14:12)
[2024-06-08] MEDS: MAG HYDROX/AL HYDROX/SIMETH 30 ML UNIT-DOSE CUP PO PRN (13:33)
[2024-06-12] MEDS: methaDONE HCL 40 MG DISPERSABLE TABLET PO SCH (06:46)
[2024-06-12] MEDS: ELVITEG/COB/EMTRI/TENOF (GENVOYA) TABLET PO ONE (10:17)
[2024-06-16 06:58] VITALS: RESP 16; TEMP 98.2
[2024-06-16 09:04] VITALS: BP 118/77; PULSE 82
[2024-06-16] MEDS: NALOXONE (NYS OPIOID OVERDOSE PROGRAM) 4 MG/0.1 ML SPRAY NS PRN (09:23)
== END 2024-06-16 09:55 | disposition home or self-care (01) | DRG 772 ==
LOC: YASAS 17:09 → Y3W 18:21
PROVIDERS: ADMIT Psychiatry & Neurology Pain Medicine; ATTEND Family Medicine Addiction Medicine
PROC: HZ42ZZZ Group Counseling for Substance Abuse Treatment, Cognitive-Behavioral (ICD-10-PCS; principal; 2024-05-23)
DX: F10.20 Alcohol dependence, uncomplicated (principal); F11.20 Opioid dependence, uncomplicated; F14.20 Cocaine dependence, uncomplicated; F17.210 Nicotine dependence, cigarettes, uncomplicated; Z21 Asymptomatic human immunodeficiency virus [HIV] infection status; I25.10 Atherosclerotic heart disease of native coronary artery without angina pectoris; I10 Essential (primary) hypertension; J18.9 Pneumonia, unspecified organism; L85.3 Xerosis cutis; L25.9 Unspecified contact dermatitis, unspecified cause; R60.0 Localized edema
CPT/HCPCS: J0475

== ENCOUNTER 2024-09-10 16:44 | Inpatient (IN) | payer OTHER ==
[2024-09-10 17:36] VITALS: BMI 22.0
[2024-09-10] MEDS ORDERED: BENZOCAINE/MENTHOL (CHLORASEPTIC ) LOZENGE MM PRN (17:48)
[2024-09-10] MEDS ORDERED: IBUPROFEN 400 MG TABLET (FP) PO PRN (17:48)
[2024-09-10] MEDS ORDERED: ACETAMINOPHEN 325 MG TABLET (FP) PO PRN (17:48)
[2024-09-10] MEDS ORDERED: LOPERAMIDE HCL 2 MG CAPSULE PO PRN (17:48)
[2024-09-10] MEDS ORDERED: DICYCLOMINE HCL 10 MG CAPSULE PO PRN (17:48)
[2024-09-10] MEDS ORDERED: NALOXONE (NARCAN) HCL 4 MG/0.1 ML SPRAY NS PRN (17:48)
[2024-09-10] MEDS ORDERED: IBUPROFEN 600 MG TABLET (FP) PO PRN (17:48)
[2024-09-10] MEDS ORDERED: BENZONATATE 200 MG CAPSULE PO PRN (17:48)
[2024-09-10] MEDS ORDERED: guaiFENesin 600 MG TABLET.ER (FP) PO PRN (17:48)
[2024-09-10] MEDS ORDERED: POLYETHYLENE GLYCOL (HEALTHYLAX) 3350 17 GM PACKET PO PRN (17:48)
[2024-09-10] MEDS ORDERED: ONDANSETRON *ODT* 4 MG TABLET SL PRN (17:48)
[2024-09-10] MEDS ORDERED: BISMUTH SUBSALICYLATE 524 MG/30 ML PO PRN (17:48)
[2024-09-10] MEDS ORDERED: MAGNESIUM HYDROX 2400MG/30ML ORAL SUSPENSION 30 ML CUP PO PRN (17:48)
[2024-09-10] MEDS ORDERED: MAG HYDROX/AL HYDROX/SIMETH 30 ML UNIT-DOSE CUP PO PRN (17:48)
[2024-09-10] MEDS: THIAMINE 100 MG TABLET PO SCH (22:58)
[2024-09-10] MEDS: MELATONIN 5 MG TABLETS PO SCH (22:58)
[2024-09-10] MEDS: BUPRENORPHINE/NALOXONE 4 MG/1 MG FILM PACKET SL ONE (23:04)
[2024-09-11] MEDS: hydrOXYzine PAMOATE 25 MG CAPSULE (FP) PO PRN (06:09)
[2024-09-11] MEDS: METHOCARBAMOL 500 MG TABLET PO PRN (06:09)
[2024-09-11] MEDS ORDERED: ALBUTEROL SO4 HFA INHALER IH PRN (08:37)
[2024-09-11] MEDS: ELVITEG/COB/EMTRI/TENOF (GENVOYA) TABLET PO SCH (09:32)
[2024-09-11] MEDS: PRENATAL VITAMINS W/ FOLIC ACID TABLET (FP) PO SCH (09:32)
[2024-09-11] MEDS: ASPIRIN 81 MG CHEWABLE TABLETS PO SCH (09:32)
[2024-09-11] MEDS: SULFAMETHOXAZOLE/TRIMETHOPRIM 800MG/160MG D.S. TABLET PO SCH (09:33)
[2024-09-11] MEDS: BUDESONIDE/FORMETEROL FUMARATE 160/4.5 mcg INHALER IH SCH (09:33)
[2024-09-11] MEDS: amLODIPine BESYLATE 10 MG TABLET (FP) PO SCH (09:33)
[2024-09-11] MEDS: methaDONE HCL 40 MG DISPERSABLE TABLET PO ONE (09:33)
[2024-09-11 12:35] LABS: HEMATOCRIT 34.1 % (40.1-51.0); HEMOGLOBIN 10.2 g/dL (13.7-17.5); MCHC 29.9 g/dl (32.3-36.5); MEAN CELL VOLUME 90.7 fl (79.0-92.2); MEAN PLT VOLUME 8.8 fl (9.4-12.4); PLATELET COUNT 183 x10^3/uL (163-337); RDW 16.4 % (12.2-16.4)
[2024-09-11 12:36] LABS: CHLORIDE 108 mmol/L (98-107); POTASSIUM 3.6 mmol/L (3.5-5.1); SODIUM 142 mmol/L (136-145)
[2024-09-11 12:44] LABS: CALCIUM 8.6 mg/dL (8.5-10.1)
[2024-09-11 12:45] LABS: ALBUMIN 3.3 g/dl (3.4-5.0); ANION GAP 6 mmol/L (4-13); BLOOD UREA NITROGEN 17.6 mg/dL (7-18); CO2 28 mmol/L (21-32); GLUCOSE,RANDOM 117 mg/dL (74-106)
[2024-09-11 12:48] LABS: CREATININE 1.1 mg/dL (0.55-1.3); SGOT/AST 40 U/L (15-37); SGPT/ALT 40 U/L (13-61)
[2024-09-11 12:49] LABS: BILIRUBIN,TOTAL 0.5 mg/dL (0.2-1); TOT PROT 7.1 g/dl (6.4-8.2)
[2024-09-11 12:51] LABS: ALK PHOS 86 U/L (45-117)
[2024-09-11] MEDS: cloNIDine HCL 0.1 MG TABLET PO PRN (23:48)
[2024-09-12] MEDS: methaDONE HCL 40 MG DISPERSABLE TABLET PO SCH (06:00)
[2024-09-12 09:10] VITALS: BP 160/97; PULSE 61; RESP 18; TEMP 97.7
[2024-09-12] MEDS ORDERED: HYDROCHLOROTHIAZIDE 25 MG TABLET (FP) PO SCH (11:30)
== END 2024-09-12 11:16 | disposition other institution (70) | DRG 773 ==
LOC: YASAS 16:44 → Y6N 18:32
PROVIDERS: ADMIT Allergy & Immunology; ATTEND Allergy & Immunology
PROC: HZ2ZZZZ Detoxification Services for Substance Abuse Treatment (ICD-10-PCS; principal; 2024-09-10)
DX: F11.20 Opioid dependence, uncomplicated (principal); F14.20 Cocaine dependence, uncomplicated; F17.210 Nicotine dependence, cigarettes, uncomplicated; F20.9 Schizophrenia, unspecified; Z21 Asymptomatic human immunodeficiency virus [HIV] infection status; I25.10 Atherosclerotic heart disease of native coronary artery without angina pectoris; I10 Essential (primary) hypertension; J44.9 Chronic obstructive pulmonary disease, unspecified; M54.50 Low back pain, unspecified; G89.29 Other chronic pain; Z86.39 Personal history of other endocrine, nutritional and metabolic disease; Z79.899 Other long term (current) drug therapy
CPT/HCPCS: 36415; 80053; 80305; 80307; 85027; 86780; 93005; 93010